=== PATIENT | male | born 1980 | race Caucasian/White ===

== ENCOUNTER 2017-07-05 18:58 | Emergency (ER) | payer MEDICARE, OTHER ==
[~2017-07-05] VITALS: Ht 188 cm; Wt 114.3 kg
[~2017-07-05 18:58] MED LIST: D3 DOTS2000 UNIT PO; DIVALPROEX SOD500 M1 PO; HYDROXYZINE HCL25 MG PO; LATUDA80 MG PO; LISINOPRIL10 MG PO; RANITIDINE HCL150 M1 PO; SERTRALINE HCL100 MG PO; SIMVASTATIN20 MG PO; THORAZINE25 MG PO
[2017-07-05] MEDS ORDERED: KETOROLAC TROMETHAMINE 30 MG/ML VIAL IV ONE (20:15)
[2017-07-05] MEDS ORDERED: MELOXICAM7.5 MG PO (20:22)
[2017-07-05] MEDS ORDERED: PEPCID20 MG PO (20:22)
[2017-07-05] MEDS ORDERED: ROBAXIN-750750 MG PO (20:23)
[2017-07-05 20:29] VITALS: BP 133/67
== END 2017-07-05 20:35 | disposition home or self-care (01) ==
LOC: FSED 18:58
DX: M54.2 Cervicalgia (principal); M54.5 Low back pain; S16.1XXA Strain of muscle, fascia and tendon at neck level, initial encounter; S46.812A Strain of other muscles, fascia and tendons at shoulder and upper arm level, left arm, initial encounter; V43.52XA Car driver injured in collision with other type car in traffic accident, initial encounter; Y92.89 Other specified places as the place of occurrence of the external cause; I10 Essential (primary) hypertension; E11.9 Type 2 diabetes mellitus without complications; G40.909 Epilepsy, unspecified, not intractable, without status epilepticus
CPT/HCPCS: 99283

== ENCOUNTER 2018-12-20 23:14 | Emergency (ER) | payer MEDICARE ==
[~2018-12-20] VITALS: Ht 188 cm; Wt 114.3 kg
[~2018-12-20 23:14] MED LIST changes: +MELOXICAM7.5 MG PO; +PEPCID20 MG PO; +ROBAXIN-750750 MG PO
--- OUTSIDE RECORDS SUMMARY | 2018-12-20 23:18 | XMS REPORT ---
Author Author Admin, [place] Organization [facility] Address [address] [place] [address] Phone Allergies, Adverse Reactions, Alerts Allergy Name Reaction Description Start Date Severity Status Provider No Known Allergies Moises Garcia Conditions or Problems Problem Name Problem Code Onset Date Status Entry Date Provider Comment Standard Description Annotate No Known Problems Moises Garcia Medication List Medication Instructions Start Date Stop Date Generic Name NDC Status Provider Patient Instruction No Drug Therapy Prescribed - none known did ask Moises Louis Garcia Vital Signs Date Name Value Unit Range Description blood pressure, diastolic 77 mm[Hg] BP hester blood pressure, systolic 134 mm[Hg] BP sys pulse rate E&M 78 /min Heart rate
--- OUTSIDE RECORDS SUMMARY | 2018-12-20 23:18 | XMS REPORT ---
Author [facility] Address Unknown Phone Unavailable Care Team Providers Care Set Up And Charger Name Role Phone Unavailable Unavailable Payers Payer Name Policy Type Policy Number Effective Date Expiration Date Problems This patient has no known problems. Allergies, Adverse Reactions, Alerts Allergy Name Allergy Type Status Severity Reaction(s) Onset Date Inactive Date Treating Clinician Comments olanzapine DA Active U 2017-08-29 00:00:00 Medications This patient has no known medications. Results Test Description Test Time Test Comments Text Results Atomic Results Result Comments GLUBED 2018-12-07 06:29:00 GLUBED (test code=GLUBED) 122 mg/dL 74-106 Performed by certified electron beam welding machine operator at [facility] [id number] 21:29:00* Test Item Value Reference Range Comments GLUBED (test code=GLUBED) 117 mg/dL 74-106 Performed by certified electron beam welding machine operator at [facility] [id number] 11:33:00* Test Item Value Reference Range Comments GLUBED (test code=GLUBED) 127 mg/dL 74-106 Performed by certified electron beam welding machine operator at [facility] [id number] 06:20:00* Test Item Value Reference Range Comments GLUBED (test code=GLUBED) 104 mg/dL 74-106 Performed by certified electron beam welding machine operator at [facility] - XR ELBOW 3 + V [id number] 17:08:00 FAX: Tessie Baker MD [phone] [place]: [address] St: REG Name: CALE HORTA [employer] : [birth year] Age/S: 38/M [address] [facility] Unit #: [id number] Loc: [place] [address] Phys: Tessie Baker MD Acct: [id number] Dis Date: Status: REG ER PHONE #: [phone] Exam Date: 12/04/2018 1656 FAX #: [phone] Reason: foreign body removal EXAMS: CPT CODE: [id number] XR ELBOW 3 + V RT [id number] HISTORY: Foreign body. COMPARISON: Same day. 2 small radiopaque foreign bodies along the medial soft tissues noted. Soft tissue swelling medially. Elbow joint is narrowed. Olecranon enthesophyte. IMPRESSION: Persistent to small radiopaque foreign bodies along the medial margin of the elbow joint. No joint fluid acute fracture or dislocation. at 1708 Reported and signed by: Familia Jo M.D. CC: Tessie Baker MD Technologist: Oracio GARCIA(R) Trnscrd Date/Time/By: ([id number]) : By: [email or web address] Orig Print D/T: S: 12/04/2018 (2384) PAGE 1 Signed Report - XR ELBOW 3 + V [id number] 15:56:00 FAX: Tessie Baker MD [phone] [place]: [address] St: REG Name: CALE HORTA [employer] : [birth year] Age/S: 38/M [address] Unit #: [id number] Loc: [place] [address] Phys: Tessie Baker MD Acct: [id number] Dis Date: Status: REG ER PHONE #: [phone] Exam Date: 12/04/2018 1535 FAX #: [phone] Reason: post FB removal EXAMS: CPT CODE: [id number] XR ELBOW 3 + V RT [id number] HISTORY: Foreign body removal. COMPARISON: Same day. 3 views of the right elbow: Residual small radiopaque foreign bodies are still present along the medial soft tissues but are decreased from previous examination and in superficial location. Soft tissue swelling. No acute fracture or disloc ation. No elbow joint fluid is noted. Olecranon enthesophyte. IMPRESSION: Residual radiopaque foreign bodies within the supe rficial medial soft tissues of the elbow joint level noted again but are decreased in number. No acute fracture or dislocation. Stephanie ctronically Signed by Skyler Jo on 12/04/2018 at 2034 Reported and signed by: Familia Jo M.D. CC: Tessie Turk MD Technologist: KEEGAN KEY RT(R) Trnscrd Date/Time/By: 12/04/2018 (9127) : By: [email or web address] Orig Print D/T: S: 12/04/2018 (0490) PAGE 1 Signed Report - XR ELBOW 3 + V [id number] 14:30:00 FAX: Tessie Baker MD [phone] [place]: B St: REG Name: Cindy ARCHULETACALE SIDDIQI [employer] : [birth year] Age/S: 38/M [address] Unit #: [id number] Loc: [place] [address] Phys: Tessie Baker MD Acct: [id number] Dis Date: Status: REG ER PHONE #: [phone] Exam Date: 12/04/2018 1405 FAX #: [phone] Reason: pain, trauma, possible fb EXAMS: CPT CODE: [id number] XR ELBOW 3 + V RT [id number] EXAM: Right elbow, 3 views; INFORMATION: Meth ingestion; elbow trauma, bodies? IMPRE SSION: 1. Imaged bones are intact; no evidence of fracture or dislocatio n. 2. Soft tissue injury along the medial aspect of the elbow with several subcutaneous, radiopaque radiopaque foreign bodies, measuring 4 to 7 mm in diameter; at 1430 Reported and signed by: Narciso Gomez M.D. CC: Tessie Baker MD Technolo gist: CALE JAZIEL RT(R) Trnscrd Date/Time/B y: 12/04/2018 (1430) : By: [email or web address] Orig Print D/T: S: 12/04/2018 (14 34) PAGE 1 Signed Report URINALYSIS [id number] 11:54:00* Test Item Value Reference Range Comments UA COLOR (test code=COLU) YELLOW YELLOW UA APPEARANCE (test code=APPU) Cloudy CLEAR UA GLUCOSE DIPSTICK (test code=DGLUU) NEGATIVE mg/dL NEGATIVE UA BILIRUBIN DIPSTICK (test code=BILU) NEGATIVE mg/dL NEGATIVE UA KETONE DIPSTICK (test code=KETU) 10 (1+) mg/dL NEGATIVE UA SPECIFIC GRAVITY (test code=SGU) 1.021 1.001-1.035 UA BLOOD DIPSTICK (test code=RONEY) Negative mg/dL NEGATIVE UA PH DIPSTICK (test code=THONG) 6.0 5.0-8.0 UA PROTEIN DIPSTICK (test code=PROU) 100 (2+) mg/dL NEGATIVE UA UROBILINIOGEN DIPSTICK (test code=URO) 3.0 (1+) mg/dL NEGATIVE UA NITRITE DIPSTICK (test code=RENETTA) NEGATIVE NEGATIVE UA LEUKOCYTE ESTERASE W REFLEX (test code=LEUUR) NEGATIVE Saulo/uL NEGATIVE UA WBC (test code=WBCU) 0-5 per HPF 0-5 UA RBC (test code=RBCU) 0-2 #/HPF 0-5 UA EPITHELIAL CELLS (test code=EPIU) FEW per HPF FEW UA BACTERIA (test code=BACU) MODERATE #/HPF NONE UA HYALINE CAST (test code=HYALU) >20 #/LPF 0-5 UA MUCUS (test code=MUCU) MANY #/LPF FEW Urine Source? Clean CatchDRUGS OF ABUSE SCREEN [id number] 11:54:00* Test Item Value Reference Range Comments URN COCAINE (test code=COCAURN) NEGATIVE <300 ng/mL URN CANNABINOIDS (test code=CANNABURN) NEGATIVE <50 ng/mL URN AMPHETAMINE (test code=AMPHETURN) POSITIVE <1000 ng/mL This test provides only a preliminary test result. A morespecific alternate chemical method must be used in order toobtain a confirmed analytical result. Gas chromatography/mass spectrometry (GC/MS) is thepreferred confirmatory method. Other chemical confirmationmethods are available. Clinical consideration and professional judgment should be applied to any drug of abusetest result, particularly when preliminary positive resultsare used.Unconfirmed screening results must not be used fornon-medical purposes (e.g., employment testing, legaltesting). URN BARBITURATE (test code=BARBITURN) NEGATIVE <200 ng/mL URN BENZODIAZEPINE (test code=BENZOURN) NEGATIVE <200 ng/mL URN OPIATES (test code=OPIATURN) NEGATIVE <300 ng/mL URN PHENCYCLIDINE (PCP) (test code=PHENCURN) NEGATIVE <25 ng/mL URN METHADONE (test code=METHAURN) NEGATIVE <300 ng/mL Urine Source? Clean CatchURINALYSIS [id number] 11:40:00* Test Item Value Reference Range Comments UA COLOR (test code=COLU) YELLOW YELLOW UA APPEARANCE (test code=APPU) Cloudy CLEAR UA GLUCOSE DIPSTICK (test code=DGLUU) NEGATIVE mg/dL NEGATIVE UA BILIRUBIN DIPSTICK (test code=BILU) NEGATIVE mg/dL NEGATIVE UA KETONE DIPSTICK (test code=KETU) 10 (1+) mg/dL NEGATIVE UA SPECIFIC GRAVITY (test code=SGU) 1.021 1.001-1.035 UA BLOOD DIPSTICK (test code=RONEY) Negative mg/dL NEGATIVE UA PH DIPSTICK (test code=THONG) 6.0 5.0-8.0 UA PROTEIN DIPSTICK (test code=PROU) 100 (2+) mg/dL NEGATIVE UA UROBILINIOGEN DIPSTICK (test code=URO) 3.0 (1+) mg/dL NEGATIVE UA NITRITE DIPSTICK (test code=RENETTA) NEGATIVE NEGATIVE UA LEUKOCYTE ESTERASE W REFLEX (test code=LEUUR) NEGATIVE Saulo/uL NEGATIVE UA WBC (test code=WBCU) 0-5 per HPF 0-5 UA RBC (test code=RBCU) 0-2 #/HPF 0-5 UA EPITHELIAL CELLS (test code=EPIU) FEW per HPF FEW UA BACTERIA (test code=BACU) MODERATE #/HPF NONE UA HYALINE CAST (test code=HYALU) >20 #/LPF 0-5 UA MUCUS (test code=MUCU) MANY #/LPF FEW Urine Source? Clean CatchDRUGS OF ABUSE SCREEN [id number] 11:40:00* Test Item Value Reference Range Comments URN COCAINE (test code=COCAURN) <300 ng/mL URN CANNABINOIDS (test code=CANNABURN) <50 ng/mL URN AMPHETAMINE (test code=AMPHETURN) <1000 ng/mL URN BARBITURATE (test code=BARBITURN) <200 ng/mL URN BENZODIAZEPINE (test code=BENZOURN) <200 ng/mL URN OPIATES (test code=OPIATURN) <300 ng/mL URN PHENCYCLIDINE (PCP) (test code=PHENCURN) <25 ng/mL URN METHADONE (test code=METHAURN) <300 ng/mL Urine Source? Clean CatchURINALYSIS [id number] 11:31:00* Test Item Value Reference Range Comments UA COLOR (test code=COLU) YELLOW YELLOW UA APPEARANCE (test code=APPU) Cloudy CLEAR UA GLUCOSE DIPSTICK (test code=DGLUU) NEGATIVE mg/dL NEGATIVE UA BILIRUBIN DIPSTICK (test code=BILU) NEGATIVE mg/dL NEGATIVE UA KETONE DIPSTICK (test code=KETU) 10 (1+) mg/dL NEGATIVE UA SPECIFIC GRAVITY (test code=SGU) 1.021 1.001-1.035 UA BLOOD DIPSTICK (test code=RONEY) Negative mg/dL NEGATIVE UA PH DIPSTICK (test code=THONG) 6.0 5.0-8.0 UA PROTEIN DIPSTICK (test code=PROU) 100 (2+) mg/dL NEGATIVE UA UROBILINIOGEN DIPSTICK (test code=URO) 3.0 (1+) mg/dL NEGATIVE UA NITRITE DIPSTICK (test code=RENETTA) NEGATIVE NEGATIVE UA LEUKOCYTE ESTERASE W REFLEX (test code=LEUUR) NEGATIVE Saulo/uL NEGATIVE UA WBC (test code=WBCU) per HPF 0-5 UA RBC (test code=RBCU) per HPF 0-5 UA EPITHELIAL CELLS (test code=EPIU) per HPF Few UA BACTERIA (test code=BACU) per HPF NONE Urine Source? Clean CatchDRUGS OF ABUSE SCREEN [id number] 11:31:00* Test Item Value Reference Range Comments URN COCAINE (test code=COCAURN) <300 ng/mL URN CANNABINOIDS (test code=CANNABURN) <50 ng/mL URN AMPHETAMINE (test code=AMPHETURN) <1000 ng/mL URN BARBITURATE (test code=BARBITURN) <200 ng/mL URN BENZODIAZEPINE (test code=BENZOURN) <200 ng/mL URN OPIATES (test code=OPIATURN) <300 ng/mL URN PHENCYCLIDINE (PCP) (test code=PHENCURN) <25 ng/mL URN METHADONE (test code=METHAURN) <300 ng/mL Urine Source? Clean CatchBASIC METABOLIC [id number] 11:22:00* Test Item Value Reference Range Comments SODIUM (test code=NA) 139 mmol/L 136-145 POTASSIUM (test code=K) 3.5 mmol/L 3.5-5.1 CHLORIDE (test code=CL) 107.0 mmol/L 98-107 CARBON DIOXIDE (test code=CO2) 20.0 mmol/L 21-32 ANION GAP (test code=GAP) 15.5 10-20 GLUCOSE (test code=GLU) 141 mg/dL 74-106 BLOOD UREA NITROGEN (test code=BUN) 7 mg/dL 7-18 GLOMERULAR FILTRATION RATE (test code=GFR) > 60 mL/min >=60 Estimated GFR by using Modified MDRD formula.Chronic kidney disease is defined as either kidney damageor GFR <60 mL/min/1.73 m2 for >3 months. CREATININE (test code=CREAT) 1.20 mg/dL 0.7-1.3 BUN/CREATININE RATIO (test code=BUN/CREA) 6.0 10-20 CALCIUM (test code=CA) 9.5 mg/dL 8.5-10.1 HEPATIC FUNCTION [id number] 11:22:00* Test Item Value Reference Range Comments TOTAL PROTEIN (test code=PROT) 8.0 gram/dL 6.4-8.2 ALBUMIN (test code=ALB) 3.8 g/dL 3.4-5.0 GLOBULIN (test code=GLOB) 4.2 gram/dL 2.7-4.2 ALBUMIN/GLOBULIN RATIO (test code=A/G) 0.9 0.75-1.50 BILIRUBIN TOTAL (test code=BILT) 0.80 mg/dL 0.0-1.0 BILIRUBIN DIRECT (test code=BILD) 0.22 mg/dL 0.0-0.20 SGOT/AST (test code=AST) 21 IUnit/L 15-37 SGPT/ALT (test code=ALT) 26 IUnit/L 12-78 ALKALINE PHOSPHATASE TOTAL (test code=ALKP) 74 IUnit/L 45-117 Note change in reference range due to change in reagent. CREATINE KINASE (CK)2018-12-04 11:22:00* Test Item Value Reference Range Comments CREATINE KINASE (CK) (test code=CK) 261 IUnit/L 26-208 [id number] 11:22:00* Test Item Value Reference Range Comments TROPONIN-I (test code=TROPI) <0.015 ng/mL 0-0.045 [id number] 11:22:00* Test Item Value Reference Range Comments ACETAMINOPHEN (test code=ACET) < 10 mcg/mL 10-30 A RANGE OF 10-30 mcg/mL IS A THERAPEUTIC RANGE. TOXIC CONCENTRATIONS: >150 mcg/mL AT 4 HOURS AFTER INGESTION >=50 mcg/mL AT 12 HOURS AFTER INGESTION [id number] 11:22:00* Test Item Value Reference Range Comments SALICYLATE (test code=MAINOR) 4.2 mg/dL 2.8-20.0 [id number] 11:22:00* Test Item Value Reference Range Comments ALCOHOL (test code=ALC) < 3 mg/dL 0.0-3.0 INTERPRETIVE DATA NOTE: POSITIVE SCREENING RESULTS SHOULD BE CONSIDERED PRESUMPTIVE.WHEN COLLECTED FOR MEDICAL PURPOSES ONLY. SPECIMEN WILL NOTBE COLLECTED BY CHAIN OF CUSTODY.IF A CONFIRMATION OF POSITIVE RESULTS IS DESIRED, ACONFIRMATION TEST MUST BE REQUESTED BY THE PHYSICIAN AT ANADDITIONAL CHARGE TO THE PATIENT. PROTHROMBIN [id number] 11:13:00* Test Item Value Reference Range Comments PROTHROMBIN TIME PATIENT (test code=PTP) 12.2 seconds 9.0-14.0 INTERNATIONAL NORMAL RATIO (test code=INR) 1.0 0.8-1.2 The therapeutic range for oral anticoagulant therapy formost indications is an international normalized ratio (INR)of between 2.0 and 3.0. The recommended therapeutic INRrange for various clinical situations is listed below: Clinical Situation INR range Pulmonary e mbolism treatment (2.0-3.0)Venous thrombosis treatmentVenous thrombosis prophylaxis (high risk surgery)Prevention of systemic embolism from: Acute myocardial infarction Valvular heart disease Atrial fibrillation Mechanical prosthetic heart valves (2.5-3.5) IS PATIENT ON ANTICOAGULANTS? NTHROMBOPLASTIN TIME [id number] 11:13:00* Test Item Value Reference Range Comments THROMBOPLASTIN TIME PARTIAL (test code=PTT) 31.6 seconds 25.0-36.5 IS PATIENT ON ANTICOAGULANTS? NBASIC METABOLIC [id number] 11:09:00* Test Item Value Reference Range Comments SODIUM (test code=NA) 139 mmol/L 136-145 POTASSIUM (test code=K) 3.5 mmol/L 3.5-5.1 CHLORIDE (test code=CL) 107.0 mmol/L 98-107 CARBON DIOXIDE (test code=CO2) mmol/L 21-32 ANION GAP (test code=GAP) 10-20 GLUCOSE (test code=GLU) mg/dL 74-106 BLOOD UREA NITROGEN (test code=BUN) mg/dL 7-18 GLOMERULAR FILTRATION RATE (test code=GFR) mL/min >=60 CREATININE (test code=CREAT) mg/dL 0.7-1.3 BUN/CREATININE RATIO (test code=BUN/CREA) 10-20 CALCIUM (test code=CA) mg/dL 8.5-10.1 HEPATIC FUNCTION [id number] 11:09:00* Test Item Value Reference Range Comments TOTAL PROTEIN (test code=PROT) gram/dL 6.4-8.2 ALBUMIN (test code=ALB) g/dL 3.4-5.0 GLOBULIN (test code=GLOB) gram/dL 2.7-4.2 ALBUMIN/GLOBULIN RATIO (test code=A/G) 0.75-1.50 BILIRUBIN TOTAL (test code=BILT) mg/dL 0.0-1.0 BILIRUBIN DIRECT (test code=BILD) mg/dL 0.0-0.20 SGOT/AST (test code=AST) IUnit/L 15-37 SGPT/ALT (test code=ALT) IUnit/L 12-78 ALKALINE PHOSPHATASE TOTAL (test code=ALKP) IUnit/L 45-117 CREATINE KINASE (CK)2018-12-04 11:09:00* Test Item Value Reference Range Comments CREATINE KINASE (CK) (test code=CK) IUnit/L 26-208 [id number] 11:09:00* Test Item Value Reference Range Comments TROPONIN-I (test code=TROPI) ng/mL 0-0.045 [id number] 11:09:00* Test Item Value Reference Range Comments ACETAMINOPHEN (test code=ACET) mcg/mL 10-30 [id number] 11:09:00* Test Item Value Reference Range Comments SALICYLATE (test code=MAINOR) mg/dL 2.8-20.0 [id number] 11:09:00* Test Item Value Reference Range Comments ALCOHOL (test code=ALC) mg/dL 0-3 CBC W/AUTO [id number] 10:57:00* Test Item Value Reference Range Comments WHITE BLOOD CELL (test code=WBC) K/mm3 4.5-12.5 RED BLOOD CELL (test code=RBC) mill/mm3 4.0-5.8 HEMOGLOBIN (test code=HGB) 15.7 gram/dL 13.0-17.5 HEMATOCRIT (test code=HCT) 44.7 % 42.0-52.0 MEAN CELL VOLUME (test code=MCV) fL 80-98 MEAN CELL HGB (test code=MCH) picogram 27.0-33.0 MEAN CELL HGB CONCETRATION (test code=MCHC) gram/dL 33.0-36.0 RED CELL DISTRIBUTION WIDTH (test code=RDW) % 11.6-16.2 RED CELL DISTRIBUTION WIDTH SD (test code=RDW-SD) fL 37.0-51.0 PLATELET COUNT (test code=PLT) K/mm3 150-450 MEAN PLATELET VOLUME (test code=MPV) fL 6.7-11.0 NEUTROPHIL % (test code=NT%) % 39.0-69.0 IMMATURE GRANULOCYTE % (test code=IG%) % 0.0-5.0 LYMPHOCYTE % (test code=LY%) % 25.0-55.0 MONOCYTE % (test code=MO%) % 0.0-10.0 EOSINOPHIL % (test code=EO%) % 0.0-5.0 BASOPHIL % (test code=BA%) % 0.0-1.0 NEUTROPHIL # (test code=NT#) K/mm3 1.8-7.7 LYMPHOCYTE # (test code=LY#) K/mm3 1.0-5.0 MONOCYTE # (test code=MO#) K/mm3 0-0.8 EOSINOPHIL # (test code=EO#) K/mm3 0.0-0.5 BASOPHIL # (test code=BA#) K/mm3 0.0-0.2 CBC W/AUTO [id number] 10:57:00* Test Item Value Reference Range Comments WHITE BLOOD CELL (test code=WBC) 9.9 K/mm3 4.5-12.5 RED BLOOD CELL (test code=RBC) 4.97 mill/mm3 4.0-5.8 HEMOGLOBIN (test code=HGB) 15.7 gram/dL 13.0-17.5 HEMATOCRIT (test code=HCT) 44.7 % 42.0-52.0 MEAN CELL VOLUME (test code=MCV) 89.9 fL 80-98 MEAN CELL HGB (test code=MCH) 31.6 picogram 27.0-33.0 MEAN CELL HGB CONCETRATION (test code=MCHC) 35.1 gram/dL 33.0-36.0 RED CELL DISTRIBUTION WIDTH (test code=RDW) 13.2 % 11.6-16.2 RED CELL DISTRIBUTION WIDTH SD (test code=RDW-SD) 43.1 fL 37.0-51.0 PLATELET COUNT (test code=PLT) 408 K/mm3 150-450 MEAN PLATELET VOLUME (test code=MPV) 9.6 fL 6.7-11.0 NEUTROPHIL % (test code=NT%) 57.9 % 39.0-69.0 IMMATURE GRANULOCYTE % (test code=IG%) 0.4 % 0.0-5.0 LYMPHOCYTE % (test code=LY%) 29.4 % 25.0-55.0 MONOCYTE % (test code=MO%) 10.9 % 0.0-10.0 EOSINOPHIL % (test code=EO%) 0.8 % 0.0-5.0 BASOPHIL % (test code=BA%) 0.6 % 0.0-1.0 NUCLEATED RBC % (test code=NRBC%) 0.0 % 0-0 NEUTROPHIL # (test code=NT#) 5.71 K/mm3 1.8-7.7 IMMATURE GRANULOCYTE # (test code=IG#) 0.04 x10 3/uL 0-0.03 LYMPHOCYTE # (test code=LY#) 2.90 K/mm3 1.0-5.0 MONOCYTE # (test code=MO#) 1.07 K/mm3 0-0.8 EOSINOPHIL # (test code=EO#) 0.08 K/mm3 0.0-0.5 BASOPHIL # (test code=BA#) 0.06 K/mm3 0.0-0.2 NUCLEATED RBC # (test code=NRBC#) 0.00 K/mm3 0.0-0.1 [id number] 16:33:00* Test Item Value Reference Range Comments GLUBED (test code=GLUBED) 149 mg/dL 74-106 Performed by certified electron beam welding machine operator at [facility] [id number] 16:33:00* Test Item Value Reference Range Comments GLUBED (test code=GLUBED) 201 mg/dL 74-106 Performed by certified electron beam welding machine operator at [facility] [id number] 16:33:00* Test Item Value Reference Range Comments GLUBED (test code=GLUBED) 178 mg/dL 74-106 Performed by certified electron beam welding machine operator at [facility] BASIC METABOLIC [id number] 06:21:00* Test Item Value Reference Range Comments SODIUM (test code=NA) 138 mmol/L 136-145 POTASSIUM (test code=K) 4.0 mmol/L 3.5-5.1 CHLORIDE (test code=CL) 107.0 mmol/L 98-107 CARBON DIOXIDE (test code=CO2) 21.0 mmol/L 21-32 ANION GAP (test code=GAP) 14.0 10-20 GLUCOSE (test code=GLU) 188 mg/dL 74-106 BLOOD UREA NITROGEN (test code=BUN) 18 mg/dL 7-18 GLOMERULAR FILTRATION RATE (test code=GFR) > 60 mL/min >=60 Estimated GFR by using Modified MDRD formula.Chronic kidney disease is defined as either kidney damageor GFR <60 mL/min/1.73 m2 for >3 months. CREATININE (test code=CREAT) 1.20 mg/dL 0.7-1.3 BUN/CREATININE RATIO (test code=BUN/CREA) 15.0 10-20 CALCIUM (test code=CA) 8.2 mg/dL 8.5-10.1 VALPROIC ACID (DEPAKENE)2018-06-09 06:21:00* Test Item Value Reference Range Comments VALPROIC ACID (DEPAKENE) (test code=VALP) 10.0 mcg/mL 50.0-100.0 BASIC METABOLIC [id number] 06:11:00* Test Item Value Reference Range Comments SODIUM (test code=NA) 138 mmol/L 136-145 POTASSIUM (test code=K) 4.0 mmol/L 3.5-5.1 CHLORIDE (test code=CL) 107.0 mmol/L 98-107 CARBON DIOXIDE (test code=CO2) mmol/L 21-32 ANION GAP (test code=GAP) 10-20 GLUCOSE (test code=GLU) mg/dL 74-106 BLOOD UREA NITROGEN (test code=BUN) mg/dL 7-18 GLOMERULAR FILTRATION RATE (test code=GFR) mL/min >=60 CREATININE (test code=CREAT) mg/dL 0.7-1.3 BUN/CREATININE RATIO (test code=BUN/CREA) 10-20 CALCIUM (test code=CA) mg/dL 8.5-10.1 [id number] 06:11:00* Test Item Value Reference Range Comments AMMONIA (test code=AMM) 43 umol/L 11-32 [id number] 22:13:00* Test Item Value Reference Range Comments GLUBED (test code=GLUBED) 165 mg/dL 74-106 Performed by certified electron beam welding machine operator at [facility] [id number] 17:56:00* Test Item Value Reference Range Comments GLUBED (test code=GLUBED) 177 mg/dL 74-106 Performed by certified electron beam welding machine operator at [facility] PROCALCITONIN (PCT)2018-06-08 15:53:00* Test Item Value Reference Range Comments PROCALCITONIN (PCT) (test code=PROCAL) 0.41 ng/ml Concentration Interpretation (ng/mL) <0.51 Sepsis is not likely. Local bacterial infection is possible. (LOW RISK for progression to Sepsis) 0.51 - 2.00 Sepsis is possible, but other conditions are known to elevate PCT as well. (MODERATE RISK for progression to Sepsis) > 2.00 Sepsis is likely, unless other causes are known. (HIGH RISK for progression to Severe Sepsis or Septic Shock) 10.00 High likelihood of Severe Sepsis or Septic or higher Shock. *Increased PCT levels may not always be related to systemic bacterial infection.*Low PCT levels do not automatically exclude the presence of bacterial infection.*All results should be interpreted taking into account the patients history. BASIC METABOLIC [id number] 15:25:00* Test Item Value Reference Range Comments SODIUM (test code=NA) 137 mmol/L 136-145 POTASSIUM (test code=K) 4.7 mmol/L 3.5-5.1 CHLORIDE (test code=CL) 108.0 mmol/L 98-107 CARBON DIOXIDE (test code=CO2) 19.0 mmol/L 21-32 ANION GAP (test code=GAP) 14.7 10-20 GLUCOSE (test code=GLU) 169 mg/dL 74-106 BLOOD UREA NITROGEN (test code=BUN) 17 mg/dL 7-18 GLOMERULAR FILTRATION RATE (test code=GFR) > 60 mL/min >=60 Estimated GFR by using Modified MDRD formula.Chronic kidney disease is defined as either kidney damageor GFR <60 mL/min/1.73 m2 for >3 months. CREATININE (test code=CREAT) 1.00 mg/dL 0.7-1.3 BUN/CREATININE RATIO (test code=BUN/CREA) 17.0 10-20 CALCIUM (test code=CA) 8.3 mg/dL 8.5-10.1 BASIC METABOLIC [id number] 15:20:00* Test Item Value Reference Range Comments SODIUM (test code=NA) 137 mmol/L 136-145 POTASSIUM (test code=K) 4.7 mmol/L 3.5-5.1 CHLORIDE (test code=CL) 108.0 mmol/L 98-107 CARBON DIOXIDE (test code=CO2) mmol/L 21-32 ANION GAP (test code=GAP) 10-20 GLUCOSE (test code=GLU) mg/dL 74-106 BLOOD UREA NITROGEN (test code=BUN) mg/dL 7-18 GLOMERULAR FILTRATION RATE (test code=GFR) mL/min >=60 CREATININE (test code=CREAT) mg/dL 0.7-1.3 BUN/CREATININE RATIO (test code=BUN/CREA) 10-20 CALCIUM (test code=CA) 8.3 mg/dL 8.5-10.1 [id number] 12:24:00* Test Item Value Reference Range Comments GLUBED (test code=GLUBED) 150 mg/dL 74-106 Performed by certified electron beam welding machine operator at [facility] [id number] 08:24:00* Test Item Value Reference Range Comments GLUBED (test code=GLUBED) 145 mg/dL 74-106 Performed by certified electron beam welding machine operator at [facility] [id number] 21:40:00* Test Item Value Reference Range Comments GLUBED (test code=GLUBED) 226 mg/dL 74-106 Performed by certified electron beam welding machine operator at [facility] [id number] 17:09:00* Test Item Value Reference Range Comments GLUBED (test code=GLUBED) 120 mg/dL 74-106 Performed by certified electron beam welding machine operator at [facility] [id number] 12:40:00* Test Item Value Reference Range Comments GLUBED (test code=GLUBED) 130 mg/dL 74-106 Performed by certified electron beam welding machine operator at [facility] [id number] 08:04:00* Test Item Value Reference Range Comments GLUBED (test code=GLUBED) 117 mg/dL 74-106 Performed by certified electron beam welding machine operator at [facility] CBC W/MANUAL [id number] 06:12:00* Test Item Value Reference Range Comments WHITE BLOOD CELL (test code=WBC) 17.9 K/mm3 4.5-12.5 RED BLOOD CELL (test code=RBC) 3.82 mill/mm3 4.0-5.8 HEMOGLOBIN (test code=HGB) 11.8 gram/dL 13.0-17.5 HEMATOCRIT (test code=HCT) 36.0 % 42.0-52.0 MEAN CELL VOLUME (test code=MCV) 94.2 fL 80-98 MEAN CELL HGB (test code=MCH) 30.9 picogram 27.0-33.0 MEAN CELL HGB CONCETRATION (test code=MCHC) 32.8 gram/dL 33.0-36.0 RED CELL DISTRIBUTION WIDTH (test code=RDW) 12.7 % 11.6-16.2 RED CELL DISTRIBUTION WIDTH SD (test code=RDW-SD) 43.6 fL 37.0-51.0 PLATELET COUNT (test code=PLT) 215 K/mm3 150-450 MEAN PLATELET VOLUME (test code=MPV) 11.4 fL 6.7-11.0 IMMATURE GRANULOCYTE % (test code=IG%) 1.6 % 0.0-5.0 NUCLEATED RBC % (test code=NRBC%) 0.0 % 0-0 NEUTROPHIL # (test code=NT#) 14.12 K/mm3 1.8-7.7 IMMATURE GRANULOCYTE # (test code=IG#) 0.28 x10 3/uL 0-0.03 LYMPHOCYTE # (test code=LY#) 1.46 K/mm3 1.0-5.0 MONOCYTE # (test code=MO#) 1.77 K/mm3 0-0.8 EOSINOPHIL # (test code=EO#) 0.19 K/mm3 0.0-0.5 BASOPHIL # (test code=BA#) 0.03 K/mm3 0.0-0.2 NUCLEATED RBC # (test code=NRBC#) 0.00 K/mm3 0.0-0.1 MANUAL DIFF REQUIRED (test code=MDIFF) YES STAIN ACCEPTABILITY (test code=STN ACCEPTABLE) STAIN ACCEPTABLE TOTAL CELLS COUNTED (test code=TCC) 115 #CELLS SEGMENTED NEUTROPHILS (test code=SEG) 76.5 % 39-69 BAND NEUTROPHIL (test code=BAND) 5.2 % 0-10 LYMPHOCYTE (test code=LYMPH) 12.2 % 25-55 REACTIVE LYMPH (test code=RELYMPH) 0 % MONOCYTE (test code=MON) 6.1 % 0-10 EOSINOPHIL (test code=EOS) 0 % 0.0-5.0 BASOPHIL (test code=BASO) 0 % 0-1.0 METAMYELOCYTE (test code=META) 0 % 0-0 MYELOCYTE (test code=MYELO) 0 % 0.0-0.0 PROMYELOCYTE (test code=PROM) 0 % 0-0 POLYCHROMASIA (test code=POLC) 1+ PLATELET ESTIMATE (test code=PLTEST) ADEQUATE PLATELET MORPHOLOGY (test code=PLTMORPH) NORMAL IMMATURE FORMS (test code=IMMAT) 0 % COMPREHENSIVE METABOLIC [id number] 05:49:00* Test Item Value Reference Range Comments SODIUM (test code=NA) 139 mmol/L 136-145 POTASSIUM (test code=K) 3.9 mmol/L 3.5-5.1 CHLORIDE (test code=CL) 110.0 mmol/L 98-107 CARBON DIOXIDE (test code=CO2) 22.0 mmol/L 21-32 ANION GAP (test code=GAP) 10.9 10-20 GLUCOSE (test code=GLU) 126 mg/dL 74-106 BLOOD UREA NITROGEN (test code=BUN) 12 mg/dL 7-18 GLOMERULAR FILTRATION RATE (test code=GFR) > 60 mL/min >=60 Estimated GFR by using Modified MDRD formula.Chronic kidney disease is defined as either kidney damageor GFR <60 mL/min/1.73 m2 for >3 months. CREATININE (test code=CREAT) 1.00 mg/dL 0.7-1.3 BUN/CREATININE RATIO (test code=BUN/CREA) 12.0 10-20 TOTAL PROTEIN (test code=PROT) 6.7 gram/dL 6.4-8.2 ALBUMIN (test code=ALB) 2.5 g/dL 3.4-5.0 GLOBULIN (test code=GLOB) 4.2 gram/dL 2.7-4.2 ALBUMIN/GLOBULIN RATIO (test code=A/G) 0.6 0.75-1.50 CALCIUM (test code=CA) 9.1 mg/dL 8.5-10.1 BILIRUBIN TOTAL (test code=BILT) 0.50 mg/dL 0.0-1.0 SGOT/AST (test code=AST) 24 IUnit/L 15-37 SGPT/ALT (test code=ALT) 26 IUnit/L 12-78 ALKALINE PHOSPHATASE TOTAL (test code=ALKP) 77 IUnit/L 45-117 Note change in reference range due to change in reagent. COMPREHENSIVE METABOLIC [id number] 05:31:00* Test Item Value Reference Range Comments SODIUM (test code=NA) 139 mmol/L 136-145 POTASSIUM (test code=K) 3.9 mmol/L 3.5-5.1 CHLORIDE (test code=CL) 110.0 mmol/L 98-107 CARBON DIOXIDE (test code=CO2) mmol/L 21-32 ANION GAP (test code=GAP) 10-20 GLUCOSE (test code=GLU) mg/dL 74-106 BLOOD UREA NITROGEN (test code=BUN) mg/dL 7-18 GLOMERULAR FILTRATION RATE (test code=GFR) mL/min >=60 CREATININE (test code=CREAT) mg/dL 0.7-1.3 BUN/CREATININE RATIO (test code=BUN/CREA) 10-20 TOTAL PROTEIN (test code=PROT) gram/dL 6.4-8.2 ALBUMIN (test code=ALB) g/dL 3.4-5.0 GLOBULIN (test code=GLOB) gram/dL 2.7-4.2 ALBUMIN/GLOBULIN RATIO (test code=A/G) 0.75-1.50 CALCIUM (test code=CA) mg/dL 8.5-10.1 BILIRUBIN TOTAL (test code=BILT) mg/dL 0.0-1.0 SGOT/AST (test code=AST) IUnit/L 15-37 SGPT/ALT (test code=ALT) IUnit/L 12-78 ALKALINE PHOSPHATASE TOTAL (test code=ALKP) IUnit/L 45-117 CBC W/MANUAL [id number] 05:23:00* Test Item Value Reference Range Comments WHITE BLOOD CELL (test code=WBC) 17.9 K/mm3 4.5-12.5 RED BLOOD CELL (test code=RBC) 3.82 mill/mm3 4.0-5.8 HEMOGLOBIN (test code=HGB) 11.8 gram/dL 13.0-17.5 HEMATOCRIT (test code=HCT) 36.0 % 42.0-52.0 MEAN CELL VOLUME (test code=MCV) 94.2 fL 80-98 MEAN CELL HGB (test code=MCH) 30.9 picogram 27.0-33.0 MEAN CELL HGB CONCETRATION (test code=MCHC) 32.8 gram/dL 33.0-36.0 RED CELL DISTRIBUTION WIDTH (test code=RDW) 12.7 % 11.6-16.2 RED CELL DISTRIBUTION WIDTH SD (test code=RDW-SD) 43.6 fL 37.0-51.0 PLATELET COUNT (test code=PLT) 215 K/mm3 150-450 MEAN PLATELET VOLUME (test code=MPV) 11.4 fL 6.7-11.0 IMMATURE GRANULOCYTE % (test code=IG%) 1.6 % 0.0-5.0 NUCLEATED RBC % (test code=NRBC%) 0.0 % 0-0 NEUTROPHIL # (test code=NT#) 14.12 K/mm3 1.8-7.7 IMMATURE GRANULOCYTE # (test code=IG#) 0.28 x10 3/uL 0-0.03 LYMPHOCYTE # (test code=LY#) 1.46 K/mm3 1.0-5.0 MONOCYTE # (test code=MO#) 1.77 K/mm3 0-0.8 EOSINOPHIL # (test code=EO#) 0.19 K/mm3 0.0-0.5 BASOPHIL # (test code=BA#) 0.03 K/mm3 0.0-0.2 NUCLEATED RBC # (test code=NRBC#) 0.00 K/mm3 0.0-0.1 MANUAL DIFF REQUIRED (test code=MDIFF) YES STAIN ACCEPTABILITY (test code=STN ACCEPTABLE) TOTAL CELLS COUNTED (test code=TCC) #CELLS SEGMENTED NEUTROPHILS (test code=SEG) % 39-69 LYMPHOCYTE (test code=LYMPH) % 25-55 MONOCYTE (test code=MON) % 0-10 EOSINOPHIL (test code=EOS) % 0.0-5.0 CABOT RINGS (test code=CAB) MORPHOLOGY COMMENT (test code=MOC) PLATELET ESTIMATE (test code=PLTEST) PLATELET MORPHOLOGY (test code=PLTMORPH) CBC W/MANUAL [id number] 05:23:00* Test Item Value Reference Range Comments WHITE BLOOD CELL (test code=WBC) 17.9 K/mm3 4.5-12.5 RED BLOOD CELL (test code=RBC) 3.82 mill/mm3 4.0-5.8 HEMOGLOBIN (test code=HGB) 11.8 gram/dL 13.0-17.5 HEMATOCRIT (test code=HCT) 36.0 % 42.0-52.0 MEAN CELL VOLUME (test code=MCV) 94.2 fL 80-98 MEAN CELL HGB (test code=MCH) 30.9 picogram 27.0-33.0 MEAN CELL HGB CONCETRATION (test code=MCHC) 32.8 gram/dL 33.0-36.0 RED CELL DISTRIBUTION WIDTH (test code=RDW) 12.7 % 11.6-16.2 RED CELL DISTRIBUTION WIDTH SD (test code=RDW-SD) 43.6 fL 37.0-51.0 PLATELET COUNT (test code=PLT) 215 K/mm3 150-450 MEAN PLATELET VOLUME (test code=MPV) 11.4 fL 6.7-11.0 IMMATURE GRANULOCYTE % (test code=IG%) 1.6 % 0.0-5.0 NUCLEATED RBC % (test code=NRBC%) 0.0 % 0-0 NEUTROPHIL # (test code=NT#) 14.12 K/mm3 1.8-7.7 IMMATURE GRANULOCYTE # (test code=IG#) 0.28 x10 3/uL 0-0.03 LYMPHOCYTE # (test code=LY#) 1.46 K/mm3 1.0-5.0 MONOCYTE # (test code=MO#) 1.77 K/mm3 0-0.8 EOSINOPHIL # (test code=EO#) 0.19 K/mm3 0.0-0.5 BASOPHIL # (test code=BA#) 0.03 K/mm3 0.0-0.2 NUCLEATED RBC # (test code=NRBC#) 0.00 K/mm3 0.0-0.1 MANUAL DIFF REQUIRED (test code=MDIFF) YES STAIN ACCEPTABILITY (test code=STN ACCEPTABLE) TOTAL CELLS COUNTED (test code=TCC) #CELLS SEGMENTED NEUTROPHILS (test code=SEG) % 39-69 LYMPHOCYTE (test code=LYMPH) % 25-55 MONOCYTE (test code=MON) % 0-10 EOSINOPHIL (test code=EOS) % 0.0-5.0 CABOT RINGS (test code=CAB) MORPHOLOGY COMMENT (test code=MOC) PLATELET ESTIMATE (test code=PLTEST) PLATELET MORPHOLOGY (test code=PLTMORPH) CBC W/MANUAL [id number] 05:23:00* Test Item Value Reference Range Comments WHITE BLOOD CELL (test code=WBC) 17.9 K/mm3 4.5-12.5 RED BLOOD CELL (test code=RBC) 3.82 mill/mm3 4.0-5.8 HEMOGLOBIN (test code=HGB) 11.8 gram/dL 13.0-17.5 HEMATOCRIT (test code=HCT) 36.0 % 42.0-52.0 MEAN CELL VOLUME (test code=MCV) 94.2 fL 80-98 MEAN CELL HGB (test code=MCH) 30.9 picogram 27.0-33.0 MEAN CELL HGB CONCETRATION (test code=MCHC) 32.8 gram/dL 33.0-36.0 RED CELL DISTRIBUTION WIDTH (test code=RDW) 12.7 % 11.6-16.2 RED CELL DISTRIBUTION WIDTH SD (test code=RDW-SD) 43.6 fL 37.0-51.0 PLATELET COUNT (test code=PLT) 215 K/mm3 150-450 MEAN PLATELET VOLUME (test code=MPV) 11.4 fL 6.7-11.0 IMMATURE GRANULOCYTE % (test code=IG%) 1.6 % 0.0-5.0 NUCLEATED RBC % (test code=NRBC%) 0.0 % 0-0 NEUTROPHIL # (test code=NT#) 14.12 K/mm3 1.8-7.7 IMMATURE GRANULOCYTE # (test code=IG#) 0.28 x10 3/uL 0-0.03 LYMPHOCYTE # (test code=LY#) 1.46 K/mm3 1.0-5.0 MONOCYTE # (test code=MO#) 1.77 K/mm3 0-0.8 EOSINOPHIL # (test code=EO#) 0.19 K/mm3 0.0-0.5 BASOPHIL # (test code=BA#) 0.03 K/mm3 0.0-0.2 NUCLEATED RBC # (test code=NRBC#) 0.00 K/mm3 0.0-0.1 MANUAL DIFF REQUIRED (test code=MDIFF) YES STAIN ACCEPTABILITY (test code=STN ACCEPTABLE) TOTAL CELLS COUNTED (test code=TCC) #CELLS SEGMENTED NEUTROPHILS (test code=SEG) % 39-69 LYMPHOCYTE (test code=LYMPH) % 25-55 MONOCYTE (test code=MON) % 0-10 EOSINOPHIL (test code=EOS) % 0.0-5.0 MORPHOLOGY COMMENT (test code=MOC) PLATELET ESTIMATE (test code=PLTEST) PLATELET MORPHOLOGY (test code=PLTMORPH) CBC W/MANUAL [id number] 05:23:00* Test Item Value Reference Range Comments WHITE BLOOD CELL (test code=WBC) 17.9 K/mm3 4.5-12.5 RED BLOOD CELL (test code=RBC) 3.82 mill/mm3 4.0-5.8 HEMOGLOBIN (test code=HGB) 11.8 gram/dL 13.0-17.5 HEMATOCRIT (test code=HCT) 36.0 % 42.0-52.0 MEAN CELL VOLUME (test code=MCV) 94.2 fL 80-98 MEAN CELL HGB (test code=MCH) 30.9 picogram 27.0-33.0 MEAN CELL HGB CONCETRATION (test code=MCHC) 32.8 gram/dL 33.0-36.0 RED CELL DISTRIBUTION WIDTH (test code=RDW) 12.7 % 11.6-16.2 RED CELL DISTRIBUTION WIDTH SD (test code=RDW-SD) 43.6 fL 37.0-51.0 PLATELET COUNT (test code=PLT) 215 K/mm3 150-450 MEAN PLATELET VOLUME (test code=MPV) 11.4 fL 6.7-11.0 IMMATURE GRANULOCYTE % (test code=IG%) 1.6 % 0.0-5.0 NUCLEATED RBC % (test code=NRBC%) 0.0 % 0-0 NEUTROPHIL # (test code=NT#) 14.12 K/mm3 1.8-7.7 IMMATURE GRANULOCYTE # (test code=IG#) 0.28 x10 3/uL 0-0.03 LYMPHOCYTE # (test code=LY#) 1.46 K/mm3 1.0-5.0 MONOCYTE # (test code=MO#) 1.77 K/mm3 0-0.8 EOSINOPHIL # (test code=EO#) 0.19 K/mm3 0.0-0.5 BASOPHIL # (test code=BA#) 0.03 K/mm3 0.0-0.2 NUCLEATED RBC # (test code=NRBC#) 0.00 K/mm3 0.0-0.1 MANUAL DIFF REQUIRED (test code=MDIFF) YES STAIN ACCEPTABILITY (test code=STN ACCEPTABLE) TOTAL CELLS COUNTED (test code=TCC) #CELLS SEGMENTED NEUTROPHILS (test code=SEG) % 39-69 LYMPHOCYTE (test code=LYMPH) % 25-55 MONOCYTE (test code=MON) % 0-10 MORPHOLOGY COMMENT (test code=MOC) PLATELET ESTIMATE (test code=PLTEST) PLATELET MORPHOLOGY (test code=PLTMORPH) CBC W/MANUAL [id number] 05:23:00* Test Item Value Reference Range Comments WHITE BLOOD CELL (test code=WBC) 17.9 K/mm3 4.5-12.5 RED BLOOD CELL (test code=RBC) 3.82 mill/mm3 4.0-5.8 HEMOGLOBIN (test code=HGB) 11.8 gram/dL 13.0-17.5 HEMATOCRIT (test code=HCT) 36.0 % 42.0-52.0 MEAN CELL VOLUME (test code=MCV) 94.2 fL 80-98 MEAN CELL HGB (test code=MCH) 30.9 picogram 27.0-33.0 MEAN CELL HGB CONCETRATION (test code=MCHC) 32.8 gram/dL 33.0-36.0 RED CELL DISTRIBUTION WIDTH (test code=RDW) 12.7 % 11.6-16.2 RED CELL DISTRIBUTION WIDTH SD (test code=RDW-SD) 43.6 fL 37.0-51.0 PLATELET COUNT (test code=PLT) 215 K/mm3 150-450 MEAN PLATELET VOLUME (test code=MPV) 11.4 fL 6.7-11.0 IMMATURE GRANULOCYTE % (test code=IG%) 1.6 % 0.0-5.0 NUCLEATED RBC % (test code=NRBC%) 0.0 % 0-0 NEUTROPHIL # (test code=NT#) 14.12 K/mm3 1.8-7.7 IMMATURE GRANULOCYTE # (test code=IG#) 0.28 x10 3/uL 0-0.03 LYMPHOCYTE # (test code=LY#) 1.46 K/mm3 1.0-5.0 MONOCYTE # (test code=MO#) 1.77 K/mm3 0-0.8 EOSINOPHIL # (test code=EO#) 0.19 K/mm3 0.0-0.5 BASOPHIL # (test code=BA#) 0.03 K/mm3 0.0-0.2 NUCLEATED RBC # (test code=NRBC#) 0.00 K/mm3 0.0-0.1 MANUAL DIFF REQUIRED (test code=MDIFF) YES STAIN ACCEPTABILITY (test code=STN ACCEPTABLE) TOTAL CELLS COUNTED (test code=TCC) #CELLS SEGMENTED NEUTROPHILS (test code=SEG) % 39-69 LYMPHOCYTE (test code=LYMPH) % 25-55 MONOCYTE (test code=MON) % 0-10 EOSINOPHIL (test code=EOS) % 0.0-5.0 CABOT RINGS (test code=CAB) MORPHOLOGY COMMENT (test code=MOC) PLATELET ESTIMATE (test code=PLTEST) PLATELET MORPHOLOGY (test code=PLTMORPH) [id number] 21:10:00* Test Item Value Reference Range Comments GLUBED (test code=GLUBED) 127 mg/dL 74-106 Performed by certified electron beam welding machine operator at [facility] [id number] 17:05:00* Test Item Value Reference Range Comments GLUBED (test code=GLUBED) 150 mg/dL 74-106 Performed by certified electron beam welding machine operator at [facility] [id number] 11:12:00* Test Item Value Reference Range Comments GLUBED (test code=GLUBED) 112 mg/dL 74-106 Performed by certified electron beam welding machine operator at [facility] [id number] 07:33:00* Test Item Value Reference Range Comments GLUBED (test code=GLUBED) 71 mg/dL 74-106 Performed by certified electron beam welding machine operator at [facility] CBC W/MANUAL [id number] 06:55:00* Test Item Value Reference Range Comments WHITE BLOOD CELL (test code=WBC) 17.3 K/mm3 4.5-12.5 RED BLOOD CELL (test code=RBC) 3.69 mill/mm3 4.0-5.8 HEMOGLOBIN (test code=HGB) 11.1 gram/dL 13.0-17.5 RESULT VERIFIED BY REPEAT ANALYSIS HEMATOCRIT (test code=HCT) 36.1 % 42.0-52.0 MEAN CELL VOLUME (test code=MCV) 97.8 fL 80-98 MEAN CELL HGB (test code=MCH) 30.1 picogram 27.0-33.0 MEAN CELL HGB CONCETRATION (test code=MCHC) 30.7 gram/dL 33.0-36.0 RED CELL DISTRIBUTION WIDTH (test code=RDW) 12.7 % 11.6-16.2 RED CELL DISTRIBUTION WIDTH SD (test code=RDW-SD) 45.5 fL 37.0-51.0 PLATELET COUNT (test code=PLT) 211 K/mm3 150-450 RESULT VERIFIED BY REPEAT ANALYSIS MEAN PLATELET VOLUME (test code=MPV) 11.3 fL 6.7-11.0 IMMATURE GRANULOCYTE % (test code=IG%) 1.0 % 0.0-5.0 NUCLEATED RBC % (test code=NRBC%) 0.0 % 0-0 NEUTROPHIL # (test code=NT#) 13.74 K/mm3 1.8-7.7 IMMATURE GRANULOCYTE # (test code=IG#) 0.17 x10 3/uL 0-0.03 LYMPHOCYTE # (test code=LY#) 1.47 K/mm3 1.0-5.0 MONOCYTE # (test code=MO#) 1.70 K/mm3 0-0.8 EOSINOPHIL # (test code=EO#) 0.17 K/mm3 0.0-0.5 BASOPHIL # (test code=BA#) 0.04 K/mm3 0.0-0.2 NUCLEATED RBC # (test code=NRBC#) 0.00 K/mm3 0.0-0.1 MANUAL DIFF REQUIRED (test code=MDIFF) YES STAIN ACCEPTABILITY (test code=STN ACCEPTABLE) STAIN ACCEPTABLE TOTAL CELLS COUNTED (test code=TCC) 115 #CELLS SEGMENTED NEUTROPHILS (test code=SEG) 70.4 % 39-69 BAND NEUTROPHIL (test code=BAND) 8.7 % 0-10 LYMPHOCYTE (test code=LYMPH) 9.6 % 25-55 REACTIVE LYMPH (test code=RELYMPH) 0 % MONOCYTE (test code=MON) 5.2 % 0-10 EOSINOPHIL (test code=EOS) 0 % 0.0-5.0 BASOPHIL (test code=BASO) 1.8 % 0-1.0 METAMYELOCYTE (test code=META) 1.7 % 0-0 MYELOCYTE (test code=MYELO) 0 % 0.0-0.0 PROMYELOCYTE (test code=PROM) 0.9 % 0-0 PLATELET ESTIMATE (test code=PLTEST) ADEQUATE PLATELET MORPHOLOGY (test code=PLTMORPH) NORMAL IMMATURE FORMS (test code=IMMAT) 1.7 % COMPREHENSIVE METABOLIC [id number] 06:37:00* Test Item Value Reference Range Comments SODIUM (test code=NA) 138 mmol/L 136-145 POTASSIUM (test code=K) 4.3 mmol/L 3.5-5.1 CHLORIDE (test code=CL) 107.0 mmol/L 98-107 CARBON DIOXIDE (test code=CO2) 29.0 mmol/L 21-32 ANION GAP (test code=GAP) 6.3 10-20 GLUCOSE (test code=GLU) 80 mg/dL 74-106 BLOOD UREA NITROGEN (test code=BUN) 9 mg/dL 7-18 GLOMERULAR FILTRATION RATE (test code=GFR) > 60 mL/min >=60 Estimated GFR by using Modified MDRD formula.Chronic kidney disease is defined as either kidney damageor GFR <60 mL/min/1.73 m2 for >3 months. CREATININE (test code=CREAT) 0.90 mg/dL 0.7-1.3 BUN/CREATININE RATIO (test code=BUN/CREA) 10.0 10-20 TOTAL PROTEIN (test code=PROT) 5.6 gram/dL 6.4-8.2 ALBUMIN (test code=ALB) 2.4 g/dL 3.4-5.0 GLOBULIN (test code=GLOB) 3.2 gram/dL 2.7-4.2 ALBUMIN/GLOBULIN RATIO (test code=A/G) 0.8 0.75-1.50 CALCIUM (test code=CA) 8.0 mg/dL 8.5-10.1 BILIRUBIN TOTAL (test code=BILT) 0.30 mg/dL 0.0-1.0 SGOT/AST (test code=AST) 23 IUnit/L 15-37 SGPT/ALT (test code=ALT) 32 IUnit/L 12-78 ALKALINE PHOSPHATASE TOTAL (test code=ALKP) 52 IUnit/L 45-117 Note change in reference range due to change in reagent. [id number] 06:37:00* Test Item Value Reference Range Comments MAGNESIUM (test code=MAG) 2.1 mg/dL 1.8-2.4 COMPREHENSIVE METABOLIC [id number] 06:28:00* Test Item Value Reference Range Comments SODIUM (test code=NA) 138 mmol/L 136-145 POTASSIUM (test code=K) 4.3 mmol/L 3.5-5.1 CHLORIDE (test code=CL) 107.0 mmol/L 98-107 CARBON DIOXIDE (test code=CO2) mmol/L 21-32 ANION GAP (test code=GAP) 10-20 GLUCOSE (test code=GLU) mg/dL 74-106 BLOOD UREA NITROGEN (test code=BUN) mg/dL 7-18 GLOMERULAR FILTRATION RATE (test code=GFR) mL/min >=60 CREATININE (test code=CREAT) mg/dL 0.7-1.3 BUN/CREATININE RATIO (test code=BUN/CREA) 10-20 TOTAL PROTEIN (test code=PROT) gram/dL 6.4-8.2 ALBUMIN (test code=ALB) g/dL 3.4-5.0 GLOBULIN (test code=GLOB) gram/dL 2.7-4.2 ALBUMIN/GLOBULIN RATIO (test code=A/G) 0.75-1.50 CALCIUM (test code=CA) mg/dL 8.5-10.1 BILIRUBIN TOTAL (test code=BILT) mg/dL 0.0-1.0 SGOT/AST (test code=AST) IUnit/L 15-37 SGPT/ALT (test code=ALT) IUnit/L 12-78 ALKALINE PHOSPHATASE TOTAL (test code=ALKP) IUnit/L 45-117 [id number] 06:28:00* Test Item Value Reference Range Comments MAGNESIUM (test code=MAG) mg/dL 1.8-2.4 CBC W/MANUAL [id number] 06:26:00* Test Item Value Reference Range Comments WHITE BLOOD CELL (test code=WBC) 17.3 K/mm3 4.5-12.5 RED BLOOD CELL (test code=RBC) 3.69 mill/mm3 4.0-5.8 HEMOGLOBIN (test code=HGB) 11.1 gram/dL 13.0-17.5 RESULT VERIFIED BY REPEAT ANALYSIS HEMATOCRIT (test code=HCT) 36.1 % 42.0-52.0 MEAN CELL VOLUME (test code=MCV) 97.8 fL 80-98 MEAN CELL HGB (test code=MCH) 30.1 picogram 27.0-33.0 MEAN CELL HGB CONCETRATION (test code=MCHC) 30.7 gram/dL 33.0-36.0 RED CELL DISTRIBUTION WIDTH (test code=RDW) 12.7 % 11.6-16.2 RED CELL DISTRIBUTION WIDTH SD (test code=RDW-SD) 45.5 fL 37.0-51.0 PLATELET COUNT (test code=PLT) 211 K/mm3 150-450 RESULT VERIFIED BY REPEAT ANALYSIS MEAN PLATELET VOLUME (test code=MPV) 11.3 fL 6.7-11.0 IMMATURE GRANULOCYTE % (test code=IG%) 1.0 % 0.0-5.0 NUCLEATED RBC % (test code=NRBC%) 0.0 % 0-0 NEUTROPHIL # (test code=NT#) 13.74 K/mm3 1.8-7.7 IMMATURE GRANULOCYTE # (test code=IG#) 0.17 x10 3/uL 0-0.03 LYMPHOCYTE # (test code=LY#) 1.47 K/mm3 1.0-5.0 MONOCYTE # (test code=MO#) 1.70 K/mm3 0-0.8 EOSINOPHIL # (test code=EO#) 0.17 K/mm3 0.0-0.5 BASOPHIL # (test code=BA#) 0.04 K/mm3 0.0-0.2 NUCLEATED RBC # (test code=NRBC#) 0.00 K/mm3 0.0-0.1 MANUAL DIFF REQUIRED (test code=MDIFF) YES STAIN ACCEPTABILITY (test code=STN ACCEPTABLE) TOTAL CELLS COUNTED (test code=TCC) #CELLS SEGMENTED NEUTROPHILS (test code=SEG) % 39-69 LYMPHOCYTE (test code=LYMPH) % 25-55 MONOCYTE (test code=MON) % 0-10 EOSINOPHIL (test code=EOS) % 0.0-5.0 CABOT RINGS (test code=CAB) MORPHOLOGY COMMENT (test code=MOC) PLATELET ESTIMATE (test code=PLTEST) PLATELET MORPHOLOGY (test code=PLTMORPH) CBC W/MANUAL [id number] 06:26:00* Test Item Value Reference Range Comments WHITE BLOOD CELL (test code=WBC) 17.3 K/mm3 4.5-12.5 RED BLOOD CELL (test code=RBC) 3.69 mill/mm3 4.0-5.8 HEMOGLOBIN (test code=HGB) 11.1 gram/dL 13.0-17.5 RESULT VERIFIED BY REPEAT ANALYSIS HEMATOCRIT (test code=HCT) 36.1 % 42.0-52.0 MEAN CELL VOLUME (test code=MCV) 97.8 fL 80-98 MEAN CELL HGB (test code=MCH) 30.1 picogram 27.0-33.0 MEAN CELL HGB CONCETRATION (test code=MCHC) 30.7 gram/dL 33.0-36.0 RED CELL DISTRIBUTION WIDTH (test code=RDW) 12.7 % 11.6-16.2 RED CELL DISTRIBUTION WIDTH SD (test code=RDW-SD) 45.5 fL 37.0-51.0 PLATELET COUNT (test code=PLT) 211 K/mm3 150-450 RESULT VERIFIED BY REPEAT ANALYSIS MEAN PLATELET VOLUME (test code=MPV) 11.3 fL 6.7-11.0 IMMATURE GRANULOCYTE % (test code=IG%) 1.0 % 0.0-5.0 NUCLEATED RBC % (test code=NRBC%) 0.0 % 0-0 NEUTROPHIL # (test code=NT#) 13.74 K/mm3 1.8-7.7 IMMATURE GRANULOCYTE # (test code=IG#) 0.17 x10 3/uL 0-0.03 LYMPHOCYTE # (test code=LY#) 1.47 K/mm3 1.0-5.0 MONOCYTE # (test code=MO#) 1.70 K/mm3 0-0.8 EOSINOPHIL # (test code=EO#) 0.17 K/mm3 0.0-0.5 BASOPHIL # (test code=BA#) 0.04 K/mm3 0.0-0.2 NUCLEATED RBC # (test code=NRBC#) 0.00 K/mm3 0.0-0.1 MANUAL DIFF REQUIRED (test code=MDIFF) YES STAIN ACCEPTABILITY (test code=STN ACCEPTABLE) TOTAL CELLS COUNTED (test code=TCC) #CELLS SEGMENTED NEUTROPHILS (test code=SEG) % 39-69 LYMPHOCYTE (test code=LYMPH) % 25-55 MONOCYTE (test code=MON) % 0-10 EOSINOPHIL (test code=EOS) % 0.0-5.0 CABOT RINGS (test code=CAB) MORPHOLOGY COMMENT (test code=MOC) PLATELET ESTIMATE (test code=PLTEST) PLATELET MORPHOLOGY (test code=PLTMORPH) CBC W/MANUAL [id number] 06:26:00* Test Item Value Reference Range Comments WHITE BLOOD CELL (test code=WBC) 17.3 K/mm3 4.5-12.5 RED BLOOD CELL (test code=RBC) 3.69 mill/mm3 4.0-5.8 HEMOGLOBIN (test code=HGB) 11.1 gram/dL 13.0-17.5 RESULT VERIFIED BY REPEAT ANALYSIS HEMATOCRIT (test code=HCT) 36.1 % 42.0-52.0 MEAN CELL VOLUME (test code=MCV) 97.8 fL 80-98 MEAN CELL HGB (test code=MCH) 30.1 picogram 27.0-33.0 MEAN CELL HGB CONCETRATION (test code=MCHC) 30.7 gram/dL 33.0-36.0 RED CELL DISTRIBUTION WIDTH (test code=RDW) 12.7 % 11.6-16.2 RED CELL DISTRIBUTION WIDTH SD (test code=RDW-SD) 45.5 fL 37.0-51.0 PLATELET COUNT (test code=PLT) 211 K/mm3 150-450 RESULT VERIFIED BY REPEAT ANALYSIS MEAN PLATELET VOLUME (test code=MPV) 11.3 fL 6.7-11.0 IMMATURE GRANULOCYTE % (test code=IG%) 1.0 % 0.0-5.0 NUCLEATED RBC % (test code=NRBC%) 0.0 % 0-0 NEUTROPHIL # (test code=NT#) 13.74 K/mm3 1.8-7.7 IMMATURE GRANULOCYTE # (test code=IG#) 0.17 x10 3/uL 0-0.03 LYMPHOCYTE # (test code=LY#) 1.47 K/mm3 1.0-5.0 MONOCYTE # (test code=MO#) 1.70 K/mm3 0-0.8 EOSINOPHIL # (test code=EO#) 0.17 K/mm3 0.0-0.5 BASOPHIL # (test code=BA#) 0.04 K/mm3 0.0-0.2 NUCLEATED RBC # (test code=NRBC#) 0.00 K/mm3 0.0-0.1 MANUAL DIFF REQUIRED (test code=MDIFF) YES STAIN ACCEPTABILITY (test code=STN ACCEPTABLE) TOTAL CELLS COUNTED (test code=TCC) #CELLS SEGMENTED NEUTROPHILS (test code=SEG) % 39-69 LYMPHOCYTE (test code=LYMPH) % 25-55 MONOCYTE (test code=MON) % 0-10 EOSINOPHIL (test code=EOS) % 0.0-5.0 MORPHOLOGY COMMENT (test code=MOC) PLATELET ESTIMATE (test code=PLTEST) PLATELET MORPHOLOGY (test code=PLTMORPH) CBC W/MANUAL [id number] 06:26:00* Test Item Value Reference Range Comments WHITE BLOOD CELL (test code=WBC) 17.3 K/mm3 4.5-12.5 RED BLOOD CELL (test code=RBC) 3.69 mill/mm3 4.0-5.8 HEMOGLOBIN (test code=HGB) 11.1 gram/dL 13.0-17.5 RESULT VERIFIED BY REPEAT ANALYSIS HEMATOCRIT (test code=HCT) 36.1 % 42.0-52.0 MEAN CELL VOLUME (test code=MCV) 97.8 fL 80-98 MEAN CELL HGB (test code=MCH) 30.1 picogram 27.0-33.0 MEAN CELL HGB CONCETRATION (test code=MCHC) 30.7 gram/dL 33.0-36.0 RED CELL DISTRIBUTION WIDTH (test code=RDW) 12.7 % 11.6-16.2 RED CELL DISTRIBUTION WIDTH SD (test code=RDW-SD) 45.5 fL 37.0-51.0 PLATELET COUNT (test code=PLT) 211 K/mm3 150-450 RESULT VERIFIED BY REPEAT ANALYSIS MEAN PLATELET VOLUME (test code=MPV) 11.3 fL 6.7-11.0 IMMATURE GRANULOCYTE % (test code=IG%) 1.0 % 0.0-5.0 NUCLEATED RBC % (test code=NRBC%) 0.0 % 0-0 NEUTROPHIL # (test code=NT#) 13.74 K/mm3 1.8-7.7 IMMATURE GRANULOCYTE # (test code=IG#) 0.17 x10 3/uL 0-0.03 LYMPHOCYTE # (test code=LY#) 1.47 K/mm3 1.0-5.0 MONOCYTE # (test code=MO#) 1.70 K/mm3 0-0.8 EOSINOPHIL # (test code=EO#) 0.17 K/mm3 0.0-0.5 BASOPHIL # (test code=BA#) 0.04 K/mm3 0.0-0.2 NUCLEATED RBC # (test code=NRBC#) 0.00 K/mm3 0.0-0.1 MANUAL DIFF REQUIRED (test code=MDIFF) YES STAIN ACCEPTABILITY (test code=STN ACCEPTABLE) TOTAL CELLS COUNTED (test code=TCC) #CELLS SEGMENTED NEUTROPHILS (test code=SEG) % 39-69 LYMPHOCYTE (test code=LYMPH) % 25-55 MONOCYTE (test code=MON) % 0-10 MORPHOLOGY COMMENT (test code=MOC) PLATELET ESTIMATE (test code=PLTEST) PLATELET MORPHOLOGY (test code=PLTMORPH) CBC W/MANUAL [id number] 06:26:00* Test Item Value Reference Range Comments WHITE BLOOD CELL (test code=WBC) 17.3 K/mm3 4.5-12.5 RED BLOOD CELL (test code=RBC) 3.69 mill/mm3 4.0-5.8 HEMOGLOBIN (test code=HGB) 11.1 gram/dL 13.0-17.5 RESULT VERIFIED BY REPEAT ANALYSIS HEMATOCRIT (test code=HCT) 36.1 % 42.0-52.0 MEAN CELL VOLUME (test code=MCV) 97.8 fL 80-98 MEAN CELL HGB (test code=MCH) 30.1 picogram 27.0-33.0 MEAN CELL HGB CONCETRATION (test code=MCHC) 30.7 gram/dL 33.0-36.0 RED CELL DISTRIBUTION WIDTH (test code=RDW) 12.7 % 11.6-16.2 RED CELL DISTRIBUTION WIDTH SD (test code=RDW-SD) 45.5 fL 37.0-51.0 PLATELET COUNT (test code=PLT) 211 K/mm3 150-450 RESULT VERIFIED BY REPEAT ANALYSIS MEAN PLATELET VOLUME (test code=MPV) 11.3 fL 6.7-11.0 IMMATURE GRANULOCYTE % (test code=IG%) 1.0 % 0.0-5.0 NUCLEATED RBC % (test code=NRBC%) 0.0 % 0-0 NEUTROPHIL # (test code=NT#) 13.74 K/mm3 1.8-7.7 IMMATURE GRANULOCYTE # (test code=IG#) 0.17 x10 3/uL 0-0.03 LYMPHOCYTE # (test code=LY#) 1.47 K/mm3 1.0-5.0 MONOCYTE # (test code=MO#) 1.70 K/mm3 0-0.8 EOSINOPHIL # (test code=EO#) 0.17 K/mm3 0.0-0.5 BASOPHIL # (test code=BA#) 0.04 K/mm3 0.0-0.2 NUCLEATED RBC # (test code=NRBC#) 0.00 K/mm3 0.0-0.1 MANUAL DIFF REQUIRED (test code=MDIFF) YES STAIN ACCEPTABILITY (test code=STN ACCEPTABLE) TOTAL CELLS COUNTED (test code=TCC) #CELLS SEGMENTED NEUTROPHILS (test code=SEG) % 39-69 LYMPHOCYTE (test code=LYMPH) % 25-55 MONOCYTE (test code=MON) % 0-10 EOSINOPHIL (test code=EOS) % 0.0-5.0 CABOT RINGS (test code=CAB) MORPHOLOGY COMMENT (test code=MOC) PLATELET ESTIMATE (test code=PLTEST) PLATELET MORPHOLOGY (test code=PLTMORPH) [id number] 21:03:00* Test Item Value Reference Range Comments GLUBED (test code=GLUBED) 140 mg/dL 74-106 Performed by certified electron beam welding machine operator at [facility] [id number] 21:03:00* Test Item Value Reference Range Comments GLUBED (test code=GLUBED) 128 mg/dL 74-106 Performed by certified electron beam welding machine operator at [facility] [id number] 21:03:00* Test Item Value Reference Range Comments GLUBED (test code=GLUBED) 113 mg/dL 74-106 Performed by certified electron beam welding machine operator at [facility] [id number] 21:03:00* Test Item Value Reference Range Comments GLUBED (test code=GLUBED) 111 mg/dL 74-106 Performed by certified electron beam welding machine operator at [facility] [id number] 21:03:00* Test Item Value Reference Range Comments GLUBED (test code=GLUBED) 106 mg/dL 74-106 Performed by certified electron beam welding machine operator at [facility] [id number] 21:03:00* Test Item Value Reference Range Comments GLUBED (test code=GLUBED) 79 mg/dL 74-106 Performed by certified electron beam welding machine operator at [facility] [id number] 21:03:00* Test Item Value Reference Range Comments GLUBED (test code=GLUBED) 72 mg/dL 74-106 Performed by certified electron beam welding machine operator at [facility] [id number] 21:03:00* Test Item Value Reference Range Comments GLUBED (test code=GLUBED) 95 mg/dL 74-106 Performed by certified electron beam welding machine operator at [facility] [id number] 21:03:00* Test Item Value Reference Range Comments GLUBED (test code=GLUBED) 116 mg/dL 74-106 Performed by certified electron beam welding machine operator at [facility] [id number] 21:03:00* Test Item Value Reference Range Comments GLUBED (test code=GLUBED) 55 mg/dL 74-106 Performed by certified electron beam welding machine operator at [facility] [id number] 20:54:00* Test Item Value Reference Range Comments GLUBED (test code=GLUBED) 165 mg/dL 74-106 Performed by certified electron beam welding machine operator at [facility] [id number] 11:44:00* Test Item Value Reference Range Comments CORTISOL (test code=CORTR) 26.25 mcg/dL 3.44-22.5 Please Note Change in REFERENCE RANGE [id number] 07:11:00* Test Item Value Reference Range Comments GLUBED (test code=GLUBED) 82 mg/dL 74-106 Performed by certified electron beam welding machine operator at [facility] [id number] 07:11:00* Test Item Value Reference Range Comments GLUBED (test code=GLUBED) 51 mg/dL 74-106 Performed by certified electron beam welding machine operator at [facility] ARTERIAL BLOOD [id number] 05:00:00* Test Item Value Reference Range Comments ARTERIAL BLOOD GAS PH (test code=PHA) 7.26 7.35-7.45 ARTERIAL BLOOD GAS PCO2 (test code=PCO2A) 54.0 mm Hg 35-45 ARTERIAL BLOOD GAS PO2 (test code=PO2A) 168.6 mmHg 80-100 BICARBONATE TOTAL HCO3 (test code=HCO3) 23.4 mmol/L 23.0-27.0 BASE EXCESS (test code=SHAREE) -4.3 mmol/L -3.0-5.0 Results called to and read back by adrian 04:55 - 06/05/2018; by alberto khanna ABG O2 SATURATION (test code=SATA) 98.7 % 90.0-98.0 ABG TYPE (test code=TYPEA) Arterial FIO2 (test code=FIO2A) 100.0 ABG VENT MODE (test code=MODEA) Assist Control ABG VENT RESP RATE (test code=RRA) 14.0 per min ABG TIDAL VOLUME (test code=TVA) 450.0 mL ABG PEEP (test code=PEEPA) 5.0 cmH2O ABG SITE (test code=SITEA) Rt RADIAL ARTERY HEMATOCRIT (test code=HCT/ABG) 40 % 42-52 TOTAL HGB (test code=THB) 13.5 gram/dL 13.0-17.5 HGB O2 SAT (test code=HBOSAT) 97.1 % 94.00-98.00 CARBOXYHEMOGLOBIN (test code=HOHGBT) 0.9 %totalHg 0.5-1.5 METHEMOGLOBIN (test code=METHGB) 0.7 % 0.0-1.50 O2 CONTENT (test code=O2CT) 18.8 % vol 18.0-22.0 PROCALCITONIN (PCT)2018-06-05 04:37:00* Test Item Value Reference Range Comments PROCALCITONIN (PCT) (test code=PROCAL) 0.08 ng/ml Concentration Interpretation (ng/mL) <0.51 Sepsis is not likely. Local bacterial infection is possible. (LOW RISK for progression to Sepsis) 0.51 - 2.00 Sepsis is possible, but other conditions are known to elevate PCT as well. (MODERATE RISK for progression to Sepsis) > 2.00 Sepsis is likely, unless other causes are known. (HIGH RISK for progression to Severe Sepsis or Septic Shock) 10.00 High likelihood of Severe Sepsis or Septic or higher Shock. *Increased PCT levels may not always be related to systemic bacterial infection.*Low PCT levels do not automatically exclude the presence of bacterial infection.*All results should be interpreted taking into account the patients history. COMPREHENSIVE METABOLIC [id number] 04:33:00* Test Item Value Reference Range Comments SODIUM (test code=NA) 140 mmol/L 136-145 POTASSIUM (test code=K) 3.6 mmol/L 3.5-5.1 CHLORIDE (test code=CL) 109.0 mmol/L 98-107 CARBON DIOXIDE (test code=CO2) 26.0 mmol/L 21-32 ANION GAP (test code=GAP) 8.6 10-20 GLUCOSE (test code=GLU) 24 mg/dL 74-106 Results called to [id number] by CAMI 06/05/18 0430Critical results verified and read back by Nurse? Y BLOOD UREA NITROGEN (test code=BUN) 8 mg/dL 7-18 GLOMERULAR FILTRATION RATE (test code=GFR) > 60 mL/min >=60 Estimated GFR by using Modified MDRD formula.Chronic kidney disease is defined as either kidney damageor GFR <60 mL/min/1.73 m2 for >3 months. CREATININE (test code=CREAT) 0.90 mg/dL 0.7-1.3 BUN/CREATININE RATIO (test code=BUN/CREA) 8.9 10-20 TOTAL PROTEIN (test code=PROT) 7.1 gram/dL 6.4-8.2 ALBUMIN (test code=ALB) 3.2 g/dL 3.4-5.0 GLOBULIN (test code=GLOB) 3.9 gram/dL 2.7-4.2 ALBUMIN/GLOBULIN RATIO (test code=A/G) 0.8 0.75-1.50 CALCIUM (test code=CA) 8.3 mg/dL 8.5-10.1 BILIRUBIN TOTAL (test code=BILT) 0.30 mg/dL 0.0-1.0 SGOT/AST (test code=AST) 50 IUnit/L 15-37 SGPT/ALT (test code=ALT) 64 IUnit/L 12-78 ALKALINE PHOSPHATASE TOTAL (test code=ALKP) 65 IUnit/L 45-117 Note change in reference range due to change in reagent. [id number] 04:25:00* Test Item Value Reference Range Comments MAGNESIUM (test code=MAG) 1.6 mg/dL 1.8-2.4 LACTIC [id number] 04:25:00* Test Item Value Reference Range Comments LACTIC ACID (test code=LACT) 1.8 mmol/L 0.4-1.9 VALPROIC ACID (DEPAKENE)2018-06-05 04:25:00* Test Item Value Reference Range Comments VALPROIC ACID (DEPAKENE) (test code=VALP) 114.0 mcg/mL 50.0-100.0 CBC W/AUTO [id number] 03:52:00* Test Item Value Reference Range Comments WHITE BLOOD CELL (test code=WBC) 14.7 K/mm3 4.5-12.5 RED BLOOD CELL (test code=RBC) 4.46 mill/mm3 4.0-5.8 HEMOGLOBIN (test code=HGB) 13.6 gram/dL 13.0-17.5 HEMATOCRIT (test code=HCT) 43.6 % 42.0-52.0 MEAN CELL VOLUME (test code=MCV) 97.8 fL 80-98 MEAN CELL HGB (test code=MCH) 30.5 picogram 27.0-33.0 MEAN CELL HGB CONCETRATION (test code=MCHC) 31.2 gram/dL 33.0-36.0 RED CELL DISTRIBUTION WIDTH (test code=RDW) 12.4 % 11.6-16.2 RED CELL DISTRIBUTION WIDTH SD (test code=RDW-SD) 44.5 fL 37.0-51.0 PLATELET COUNT (test code=PLT) 274 K/mm3 150-450 RESULT VERIFIED BY REPEAT ANALYSIS MEAN PLATELET VOLUME (test code=MPV) 11.1 fL 6.7-11.0 NEUTROPHIL % (test code=NT%) 82.6 % 39.0-69.0 IMMATURE GRANULOCYTE % (test code=IG%) 1.0 % 0.0-5.0 LYMPHOCYTE % (test code=LY%) 9.2 % 25.0-55.0 MONOCYTE % (test code=MO%) 6.9 % 0.0-10.0 EOSINOPHIL % (test code=EO%) 0.0 % 0.0-5.0 BASOPHIL % (test code=BA%) 0.3 % 0.0-1.0 NUCLEATED RBC % (test code=NRBC%) 0.0 % 0-0 NEUTROPHIL # (test code=NT#) 12.16 K/mm3 1.8-7.7 IMMATURE GRANULOCYTE # (test code=IG#) 0.14 x10 3/uL 0-0.03 LYMPHOCYTE # (test code=LY#) 1.36 K/mm3 1.0-5.0 MONOCYTE # (test code=MO#) 1.01 K/mm3 0-0.8 EOSINOPHIL # (test code=EO#) 0.00 K/mm3 0.0-0.5 BASOPHIL # (test code=BA#) 0.04 K/mm3 0.0-0.2 NUCLEATED RBC # (test code=NRBC#) 0.00 K/mm3 0.0-0.1 MANUAL DIFF REQUIRED (test code=MDIFF) NO - XR CHEST 1 [id number] 03:21:00 FAX: Omaira Vazquez MD [phone] [place]: [address] St: ADM FAX: Aravind Spain Name: CALE DAVID [employer] : 1980 Age/S: 38/M [address] Unit #: [id number] Loc: [place] [address] Phys: Aravind Spain MD Acct: [id number] Dis Date: Status: ADM IN PHONE #: [phone] Exam Date: 06/05/2018316 FAX #: [phone] Reason: intubation EXAMS: CPT CODE: [id number] XR CHEST 1 V [id number] EXAM: - XR CHEST 1 V HISTORY: Intubated. COMPARISON: June 04, 2018. FINDINGS: Single AP view of the chest is provided. Endotracheal tube is 4 cm above the ara. NG tube is in the stomach. Heart size and vascularity are within normal limits. Bilateral basilar opacities may represent airspace disease, congestion or small pleural effusions. No pneumothorax, or acute osseous abnormality. IMPRESSION: ET tube and NG tube are in place. Basilar opacities bilaterally may represent airspace disease, congestion or effusions. at 0321 Reported and signed by: Behzad Hope MD CC: Omaira Diaz MD; Aravind Spain MD Technologist: KEEGAN KEY, RT(R); Sarah Teran Trnscrd Date/Time/By: 06/05/2018 (032) : By: [email or web address] Orig Print D/T: S: 06/05/2018 (0324) PAGE 1 Signed Report [id number] 02:52:00* Test Item Value Reference Range Comments AMMONIA (test code=AMM) 94 umol/L 11-32 ARTERIAL BLOOD [id number] 00:34:00* Test Item Value Reference Range Comments ARTERIAL BLOOD GAS PH (test code=PHA) 7.31 7.35-7.45 ARTERIAL BLOOD GAS PCO2 (test code=PCO2A) 45.0 mm Hg 35-45 ARTERIAL BLOOD GAS PO2 (test code=PO2A) 88.3 mmHg 80-100 BICARBONATE TOTAL HCO3 (test code=HCO3) 22.4 mmol/L 23.0-27.0 BASE EXCESS (test code=SHAREE) -3.9 mmol/L -3.0-5.0 Results called to and read back by mitzibannerroberth : - 06/05/2018; by alberto financial management consultant ABG O2 SATURATION (test code=SATA) 96.0 % 90.0-98.0 ABG TYPE (test code=TYPEA) Arterial FIO2 (test code=FIO2A) 100.0 ABG SITE (test code=SITEA) Rt RADIAL ARTERY HEMATOCRIT (test code=HCT/ABG) 42 % 42-52 TOTAL HGB (test code=THB) 14.2 gram/dL 13.0-17.5 HGB O2 SAT (test code=HBOSAT) 92.4 % 94.00-98.00 CARBOXYHEMOGLOBIN (test code=HOHGBT) 3.2 %totalHg 0.5-1.5 Results called to and read back by [facility] : - 06/05/2018; by alberto financial management consultant METHEMOGLOBIN (test code=METHGB) 0.5 % 0.0-1.50 O2 CONTENT (test code=O2CT) 18.5 % vol 18.0-22.0 URINALYSIS [id number] 23:06:00* Test Item Value Reference Range Comments UA COLOR (test code=COLU) LIGHT YELLOW YELLOW UA APPEARANCE (test code=APPU) CLEAR CLEAR UA GLUCOSE DIPSTICK (test code=DGLUU) 150 (1+) mg/dL NEGATIVE UA BILIRUBIN DIPSTICK (test code=BILU) NEGATIVE mg/dL NEGATIVE UA KETONE DIPSTICK (test code=KETU) Negative mg/dL NEGATIVE UA SPECIFIC GRAVITY (test code=SGU) 1.010 1.001-1.035 UA BLOOD DIPSTICK (test code=RONEY) Negative NEGATIVE UA PH DIPSTICK (test code=THONG) 6.0 5.0-8.0 UA PROTEIN DIPSTICK (test code=PROU) Negative mg/dL NEGATIVE UA UROBILINIOGEN DIPSTICK (test code=URO) NEGATIVE mg/dL NEGATIVE UA NITRITE DIPSTICK (test code=RENETTA) NEGATIVE NEGATIVE UA LEUKOCYTE ESTERASE W REFLEX (test code=LEUUR) NEGATIVE NEGATIVE UA WBC (test code=WBCU) 0-5 #/HPF 0-5 UA RBC (test code=RBCU) 0-2 #/HPF 0-5 UA EPITHELIAL CELLS (test code=EPIU) None seen per HPF FEW UA BACTERIA (test code=BACU) NONE SEEN #/HPF NONE UA MUCUS (test code=MUCU) FEW #/LPF FEW Urine Source? Clean CatchDRUGS OF ABUSE SCREEN [id number] 23:06:00* Test Item Value Reference Range Comments URN COCAINE (test code=COCAURN) NEGATIVE <300 ng/mL URN CANNABINOIDS (test code=CANNABURN) POSITIVE <50 ng/mL This test provides only a preliminary test result. A morespecific alternate chemical method must be used in order toobtain a confirmed analytical result. Gas chromatography/mass spectrometry (GC/MS) is thepreferred confirmatory method. Other chemical confirmationmethods are available. Clinical consideration and professional judgment should be applied to any drug of abusetest result, particularly when preliminary positive resultsare used.Unconfirmed screening results must not be used fornon-medical purposes (e.g., employment testing, legaltesting). URN AMPHETAMINE (test code=AMPHETURN) NEGATIVE <1000 ng/mL URN BARBITURATE (test code=BARBITURN) NEGATIVE <200 ng/mL URN BENZODIAZEPINE (test code=BENZOURN) NEGATIVE <200 ng/mL URN OPIATES (test code=OPIATURN) POSITIVE <300 ng/mL This test provides only a preliminary test result. A morespecific alternate chemical method must be used in order toobtain a confirmed analytical result. Gas chromatography/mass spectrometry (GC/MS) is thepreferred confirmatory method. Other chemical confirmationmethods are available. Clinical consideration and professional judgment should be applied to any drug of abusetest result, particularly when preliminary positive resultsare used.Unconfirmed screening results must not be used fornon-medical purposes (e.g., employment testing, legaltesting). URN PHENCYCLIDINE (PCP) (test code=PHENCURN) NEGATIVE <25 ng/mL URN METHADONE (test code=METHAURN) NEGATIVE <300 ng/mL Urine Source? Clean CatchURINALYSIS [id number] 22:45:00* Test Item Value Reference Range Comments UA COLOR (test code=COLU) LIGHT YELLOW YELLOW UA APPEARANCE (test code=APPU) CLEAR CLEAR UA GLUCOSE DIPSTICK (test code=DGLUU) 150 (1+) mg/dL NEGATIVE UA BILIRUBIN DIPSTICK (test code=BILU) NEGATIVE mg/dL NEGATIVE UA KETONE DIPSTICK (test code=KETU) Negative mg/dL NEGATIVE UA SPECIFIC GRAVITY (test code=SGU) 1.010 1.001-1.035 UA BLOOD DIPSTICK (test code=RONEY) Negative NEGATIVE UA PH DIPSTICK (test code=THONG) 6.0 5.0-8.0 UA PROTEIN DIPSTICK (test code=PROU) Negative mg/dL NEGATIVE UA UROBILINIOGEN DIPSTICK (test code=URO) NEGATIVE mg/dL NEGATIVE UA NITRITE DIPSTICK (test code=RENETTA) NEGATIVE NEGATIVE UA LEUKOCYTE ESTERASE W REFLEX (test code=LEUUR) NEGATIVE NEGATIVE UA WBC (test code=WBCU) 0-5 #/HPF 0-5 UA RBC (test code=RBCU) 0-2 #/HPF 0-5 UA EPITHELIAL CELLS (test code=EPIU) None seen per HPF FEW UA BACTERIA (test code=BACU) NONE SEEN #/HPF NONE UA MUCUS (test code=MUCU) FEW #/LPF FEW Urine Source? Clean CatchDRUGS OF ABUSE SCREEN [id number] 22:45:00* Test Item Value Reference Range Comments URN COCAINE (test code=COCAURN) <300 ng/mL URN CANNABINOIDS (test code=CANNABURN) <50 ng/mL URN AMPHETAMINE (test code=AMPHETURN) <1000 ng/mL URN BARBITURATE (test code=BARBITURN) <200 ng/mL URN BENZODIAZEPINE (test code=BENZOURN) <200 ng/mL URN OPIATES (test code=OPIATURN) <300 ng/mL URN PHENCYCLIDINE (PCP) (test code=PHENCURN) <25 ng/mL URN METHADONE (test code=METHAURN) <300 ng/mL Urine Source? Clean CatchURINALYSIS [id number] 22:34:00* Test Item Value Reference Range Comments UA COLOR (test code=COLU) LIGHT YELLOW YELLOW UA APPEARANCE (test code=APPU) CLEAR CLEAR UA BILIRUBIN DIPSTICK (test code=BILU) NEGATIVE mg/dL NEGATIVE UA KETONE DIPSTICK (test code=KETU) Negative mg/dL NEGATIVE UA SPECIFIC GRAVITY (test code=SGU) 1.010 1.001-1.035 UA BLOOD DIPSTICK (test code=RONEY) Negative NEGATIVE UA PH DIPSTICK (test code=THONG) 6.0 5.0-8.0 UA PROTEIN DIPSTICK (test code=PROU) Negative mg/dL NEGATIVE UA UROBILINIOGEN DIPSTICK (test code=URO) NEGATIVE mg/dL NEGATIVE UA NITRITE DIPSTICK (test code=RENETTA) NEGATIVE NEGATIVE UA LEUKOCYTE ESTERASE W REFLEX (test code=LEUUR) NEGATIVE NEGATIVE UA WBC (test code=WBCU) per HPF 0-5 Urine Source? Clean CatchDRUGS OF ABUSE SCREEN [id number] 22:34:00* Test Item Value Reference Range Comments URN COCAINE (test code=COCAURN) <300 ng/mL URN CANNABINOIDS (test code=CANNABURN) <50 ng/mL URN AMPHETAMINE (test code=AMPHETURN) <1000 ng/mL URN BARBITURATE (test code=BARBITURN) <200 ng/mL URN BENZODIAZEPINE (test code=BENZOURN) <200 ng/mL URN OPIATES (test code=OPIATURN) <300 ng/mL URN PHENCYCLIDINE (PCP) (test code=PHENCURN) <25 ng/mL URN METHADONE (test code=METHAURN) <300 ng/mL Urine Source? Clean CatchCBC W/AUTO [id number] 22:33:00* Test Item Value Reference Range Comments WHITE BLOOD CELL (test code=WBC) 8.1 K/mm3 4.5-12.5 RED BLOOD CELL (test code=RBC) 4.21 mill/mm3 4.0-5.8 HEMOGLOBIN (test code=HGB) 13.3 gram/dL 13.0-17.5 HEMATOCRIT (test code=HCT) 40.6 % 42.0-52.0 MEAN CELL VOLUME (test code=MCV) 96.4 fL 80-98 MEAN CELL HGB (test code=MCH) 31.6 picogram 27.0-33.0 MEAN CELL HGB CONCETRATION (test code=MCHC) 32.8 gram/dL 33.0-36.0 RED CELL DISTRIBUTION WIDTH (test code=RDW) 12.5 % 11.6-16.2 RED CELL DISTRIBUTION WIDTH SD (test code=RDW-SD) 44.0 fL 37.0-51.0 PLATELET COUNT (test code=PLT) 209 K/mm3 150-450 MEAN PLATELET VOLUME (test code=MPV) 11.7 fL 6.7-11.0 NEUTROPHIL % (test code=NT%) 61.3 % 39.0-69.0 IMMATURE GRANULOCYTE % (test code=IG%) 2.1 % 0.0-5.0 LYMPHOCYTE % (test code=LY%) 21.9 % 25.0-55.0 MONOCYTE % (test code=MO%) 13.7 % 0.0-10.0 EOSINOPHIL % (test code=EO%) 0.6 % 0.0-5.0 BASOPHIL % (test code=BA%) 0.4 % 0.0-1.0 NUCLEATED RBC % (test code=NRBC%) 0.0 % 0-0 NEUTROPHIL # (test code=NT#) 4.97 K/mm3 1.8-7.7 IMMATURE GRANULOCYTE # (test code=IG#) 0.17 x10 3/uL 0-0.03 LYMPHOCYTE # (test code=LY#) 1.78 K/mm3 1.0-5.0 MONOCYTE # (test code=MO#) 1.11 K/mm3 0-0.8 EOSINOPHIL # (test code=EO#) 0.05 K/mm3 0.0-0.5 BASOPHIL # (test code=BA#) 0.03 K/mm3 0.0-0.2 NUCLEATED RBC # (test code=NRBC#) 0.00 K/mm3 0.0-0.1 MANUAL DIFF REQUIRED (test code=MDIFF) NO CBC W/AUTO [id number] 22:26:00* Test Item Value Reference Range Comments WHITE BLOOD CELL (test code=WBC) K/mm3 4.5-12.5 RED BLOOD CELL (test code=RBC) mill/mm3 4.0-5.8 HEMOGLOBIN (test code=HGB) 13.3 gram/dL 13.0-17.5 HEMATOCRIT (test code=HCT) % 42.0-52.0 MEAN CELL VOLUME (test code=MCV) fL 80-98 MEAN CELL HGB (test code=MCH) picogram 27.0-33.0 MEAN CELL HGB CONCETRATION (test code=MCHC) gram/dL 33.0-36.0 RED CELL DISTRIBUTION WIDTH (test code=RDW) % 11.6-16.2 RED CELL DISTRIBUTION WIDTH SD (test code=RDW-SD) fL 37.0-51.0 PLATELET COUNT (test code=PLT) K/mm3 150-450 MEAN PLATELET VOLUME (test code=MPV) fL 6.7-11.0 NEUTROPHIL % (test code=NT%) % 39.0-69.0 IMMATURE GRANULOCYTE % (test code=IG%) % 0.0-5.0 LYMPHOCYTE % (test code=LY%) % 25.0-55.0 MONOCYTE % (test code=MO%) % 0.0-10.0 EOSINOPHIL % (test code=EO%) % 0.0-5.0 BASOPHIL % (test code=BA%) % 0.0-1.0 NEUTROPHIL # (test code=NT#) K/mm3 1.8-7.7 LYMPHOCYTE # (test code=LY#) K/mm3 1.0-5.0 MONOCYTE # (test code=MO#) K/mm3 0-0.8 EOSINOPHIL # (test code=EO#) K/mm3 0.0-0.5 BASOPHIL # (test code=BA#) K/mm3 0.0-0.2 BASIC METABOLIC [id number] 22:25:00* Test Item Value Reference Range Comments SODIUM (test code=NA) 141 mmol/L 136-145 POTASSIUM (test code=K) 3.3 mmol/L 3.5-5.1 CHLORIDE (test code=CL) 107.0 mmol/L 98-107 CARBON DIOXIDE (test code=CO2) 28.0 mmol/L 21-32 ANION GAP (test code=GAP) 9.3 10-20 GLUCOSE (test code=GLU) 111 mg/dL 74-106 BLOOD UREA NITROGEN (test code=BUN) 9 mg/dL 7-18 GLOMERULAR FILTRATION RATE (test code=GFR) > 60 mL/min >=60 Estimated GFR by using Modified MDRD formula.Chronic kidney disease is defined as either kidney damageor GFR <60 mL/min/1.73 m2 for >3 months. CREATININE (test code=CREAT) 1.10 mg/dL 0.7-1.3 BUN/CREATININE RATIO (test code=BUN/CREA) 8.2 10-20 CALCIUM (test code=CA) 8.6 mg/dL 8.5-10.1 HEPATIC FUNCTION [id number] 22:25:00* Test Item Value Reference Range Comments TOTAL PROTEIN (test code=PROT) 6.9 gram/dL 6.4-8.2 ALBUMIN (test code=ALB) 3.3 g/dL 3.4-5.0 GLOBULIN (test code=GLOB) 3.6 gram/dL 2.7-4.2 ALBUMIN/GLOBULIN RATIO (test code=A/G) 0.9 0.75-1.50 BILIRUBIN TOTAL (test code=BILT) 0.20 mg/dL 0.0-1.0 BILIRUBIN DIRECT (test code=BILD) 0.11 mg/dL 0.0-0.20 SGOT/AST (test code=AST) 60 IUnit/L 15-37 SGPT/ALT (test code=ALT) 62 IUnit/L 12-78 ALKALINE PHOSPHATASE TOTAL (test code=ALKP) 65 IUnit/L 45-117 Note change in reference range due to change in reagent. [id number] 22:25:00* Test Item Value Reference Range Comments TROPONIN-I (test code=TROPI) <0.015 ng/mL 0-0.045 [id number] 22:25:00* Test Item Value Reference Range Comments ACETAMINOPHEN (test code=ACET) < 10 mcg/mL 10-30 A RANGE OF 10-30 mcg/mL IS A THERAPEUTIC RANGE. TOXIC CONCENTRATIONS: >150 mcg/mL AT 4 HOURS AFTER INGESTION >=50 mcg/mL AT 12 HOURS AFTER INGESTION [id number] 22:25:00* Test Item Value Reference Range Comments SALICYLATE (test code=MAINOR) 2.8 mg/dL 2.8-20.0 [id number] 22:25:00* Test Item Value Reference Range Comments ALCOHOL (test code=ALC) < 3 mg/dL 0.0-3.0 INTERPRETIVE DATA NOTE: POSITIVE SCREENING RESULTS SHOULD BE CONSIDERED PRESUMPTIVE.WHEN COLLECTED FOR MEDICAL PURPOSES ONLY. SPECIMEN WILL NOTBE COLLECTED BY CHAIN OF CUSTODY.IF A CONFIRMATION OF POSITIVE RESULTS IS DESIRED, ACONFIRMATION TEST MUST BE REQUESTED BY THE PHYSICIAN AT ANADDITIONAL CHARGE TO THE PATIENT. BASIC METABOLIC [id number] 22:24:00* Test Item Value Reference Range Comments SODIUM (test code=NA) 141 mmol/L 136-145 POTASSIUM (test code=K) 3.3 mmol/L 3.5-5.1 CHLORIDE (test code=CL) 107.0 mmol/L 98-107 CARBON DIOXIDE (test code=CO2) mmol/L 21-32 ANION GAP (test code=GAP) 10-20 GLUCOSE (test code=GLU) mg/dL 74-106 BLOOD UREA NITROGEN (test code=BUN) mg/dL 7-18 GLOMERULAR FILTRATION RATE (test code=GFR) mL/min >=60 CREATININE (test code=CREAT) mg/dL 0.7-1.3 BUN/CREATININE RATIO (test code=BUN/CREA) 10-20 CALCIUM (test code=CA) mg/dL 8.5-10.1 HEPATIC FUNCTION [id number] 22:24:00* Test Item Value Reference Range Comments TOTAL PROTEIN (test code=PROT) gram/dL 6.4-8.2 ALBUMIN (test code=ALB) g/dL 3.4-5.0 GLOBULIN (test code=GLOB) gram/dL 2.7-4.2 ALBUMIN/GLOBULIN RATIO (test code=A/G) 0.75-1.50 BILIRUBIN TOTAL (test code=BILT) mg/dL 0.0-1.0 BILIRUBIN DIRECT (test code=BILD) mg/dL 0.0-0.20 SGOT/AST (test code=AST) IUnit/L 15-37 SGPT/ALT (test code=ALT) IUnit/L 12-78 ALKALINE PHOSPHATASE TOTAL (test code=ALKP) IUnit/L 45-117 [id number] 22:24:00* Test Item Value Reference Range Comments TROPONIN-I (test code=TROPI) ng/mL 0-0.045 [id number] 22:24:00* Test Item Value Reference Range Comments ACETAMINOPHEN (test code=ACET) < 10 mcg/mL 10-30 A RANGE OF 10-30 mcg/mL IS A THERAPEUTIC RANGE. TOXIC CONCENTRATIONS: >150 mcg/mL AT 4 HOURS AFTER INGESTION >=50 mcg/mL AT 12 HOURS AFTER INGESTION [id number] 22:24:00* Test Item Value Reference Range Comments SALICYLATE (test code=MAINOR) 2.8 mg/dL 2.8-20.0 [id number] 22:24:00* Test Item Value Reference Range Comments ALCOHOL (test code=ALC) mg/dL 0-3 - XR CHEST 1 [id number] 22:21:00 FAX: Aravind Spain [place]: B St: REG Name: Cindy ARCHULETACALE SIDDIQI [employer] : [birth year] Age/S: 38/M [address] [facility] Unit #: [id number] Loc: [place] [address] Phys: Aravind Spain MD Acct: [id number] Dis Date: Status: REG ER PHONE #: [phone] Exam Date: 06/04/20182215 FAX #: [phone] Reason: Altered Mental Status EXAMS: CPT CODE: [id number] XR CHEST 1 V [id number] EXAM: Chest x-ray, one view; INFORMATION: Altered mental status, ingestion; FINDINGS: Elevation of the diaphragm bilaterally, right greater than left. Patchy densities in the right upper lobe and the right lower lobe. The left lung is clear. No pleural effusions; no pneumothorax. Unremarkable ca rdiac mediastinal silhouette. IMPRESSION: Mild patchy in filtrates the right upper and lower lobes. Electronically S igned by Skyler Gomez on 06/04/2018 at 2221 Reported and signed by: Narciso Gomez M.D. CC: Aravind Spain MD Technologist: RT MODESTO(Jonnathan) Trnscrd Date/Time/By: 06/04/2018 (2220) : By: [email or web address] Orig Print D/T: S: 06/04/2018 ([id number]) PAGE 1 Signed Report BASIC METABOLIC [id number] 22:20:00* Test Item Value Reference Range Comments SODIUM (test code=NA) 141 mmol/L 136-145 POTASSIUM (test code=K) 3.3 mmol/L 3.5-5.1 CHLORIDE (test code=CL) 107.0 mmol/L 98-107 CARBON DIOXIDE (test code=CO2) mmol/L 21-32 ANION GAP (test code=GAP) 10-20 GLUCOSE (test code=GLU) mg/dL 74-106 BLOOD UREA NITROGEN (test code=BUN) mg/dL 7-18 GLOMERULAR FILTRATION RATE (test code=GFR) mL/min >=60 CREATININE (test code=CREAT) mg/dL 0.7-1.3 BUN/CREATININE RATIO (test code=BUN/CREA) 10-20 CALCIUM (test code=CA) mg/dL 8.5-10.1 HEPATIC FUNCTION [id number] 22:20:00* Test Item Value Reference Range Comments TOTAL PROTEIN (test code=PROT) gram/dL 6.4-8.2 ALBUMIN (test code=ALB) g/dL 3.4-5.0 GLOBULIN (test code=GLOB) gram/dL 2.7-4.2 ALBUMIN/GLOBULIN RATIO (test code=A/G) 0.75-1.50 BILIRUBIN TOTAL (test code=BILT) mg/dL 0.0-1.0 BILIRUBIN DIRECT (test code=BILD) mg/dL 0.0-0.20 SGOT/AST (test code=AST) IUnit/L 15-37 SGPT/ALT (test code=ALT) IUnit/L 12-78 ALKALINE PHOSPHATASE TOTAL (test code=ALKP) IUnit/L 45-117 [id number] 22:20:00* Test Item Value Reference Range Comments TROPONIN-I (test code=TROPI) ng/mL 0-0.045 [id number] 22:20:00* Test Item Value Reference Range Comments ACETAMINOPHEN (test code=ACET) mcg/mL 10-30 [id number] 22:20:00* Test Item Value Reference Range Comments SALICYLATE (test code=MAINOR) mg/dL 2.8-20.0 [id number] 22:20:00* Test Item Value Reference Range Comments ALCOHOL (test code=ALC) mg/dL 0-3 - CT HEAD/BRAIN W/O [id number] 22:17:00 Name: CALE DAVID [employer] : 1980 Age/S: 38 / M [address] [facility]: [id number] Loc: [place] [address] Phys: Aravind Spain MD Acct: [id number] Dis Date: Status: REG ER PHONE #: [phone] Exam Date: 06/04/20182203 FAX #: [phone] Reason: Altered Mental Status EXAMS: CPT CODE: [id number] CT HEAD/BRAIN W/O CONT [id number] EXAM: CT of the head without contrast; INFORMATION: Altered mental status, ingestion; TECHNIQUE: CT dose reduction protocol; 2.5 mm axial scans; IMPRESSION: 1. No evidence of intracranial hemorrhage, acute territorial infarction, mass lesions or midline shift. 2. Bone windows show no evidence of skull fracture. 3. The previously seen right maxillary hemosinus has resolved. 4. Otherwise, no change compared with the study from February 20172017. at 2217 Reported and signed by: Narciso Gomez M.D. CC: Aravind Spain MD Technologist:Trent Alvarado, RT(R)(CT); July CTDI: DLP: Trnscb Date/Time: 06/04/2018 (2216) Sandra Orig Print D/T: S: 06/04/2018 (2220) CTDI: DLP: PAGE 1 Signed Report
[2018-12-20] MEDS ORDERED: AMOXICILLIN/CLAVULANATE K 875 MG TAB PO STA (23:19)
--- OUTSIDE RECORDS SUMMARY | 2018-12-20 23:19 | XMS REPORT | Summary of Care ---
Author Author [facility] - Health Organization [facility] - Health Address Unknown Phone Unavailable Care Team Providers Care Welding Process Engineer Name Role Phone Fred Chowdhury PCP Reason for Referral * (Routine) Referred By Contact Referred To Contact Status Reason Specialty Diagnoses / Procedures Estrada, Asiya, SOIL SORT WORKER [address] [place] [address] Fred Chowdhury [address] [place] [address] New Request Diagnoses Intentional drug overdose, initial encounter P rocedures Discharge Follow-up: PCP FRED CHOWDHURY; 4-6 Weeks * Radiology Services (STAT) Referred By Contact Referred To Contact Status Reason Specialty Diagnoses / Procedures Estrada, Asiya, SOIL SORT WORKER [address] [place] [address] New Request Diagnostic Diagnoses Radiology Intentional drug overdose, initial encounter P rocedures XR CHEST 2 VW * Radiology Services (STAT) Referred By Contact Referred To Contact Status Reason Specialty Diagnoses / Procedures Estrada, Asiya, SOIL SORT WORKER [address] [place] [address] New Request Diagnostic Diagnoses Radiology Intentional drug overdose, initial encounter P rocedures XR CHEST 2 VW * Radiology Services (STAT) Referred By Contact Referred To Contact Status Reason Specialty Diagnoses / Procedures Estrada, Asiya, SOIL SORT WORKER [address] [place] [address] New Request Diagnostic Diagnoses Radiology Intentional drug overdose, initial encounter P rocedures XR CHEST 1 VW * Radiology Services (STAT) Referred By Contact Referred To Contact Status Reason Specialty Diagnoses / Procedures Estrada, Asiya, SOIL SORT WORKER [address] [place] [phone] New Request Diagnostic Diagnoses Radiology Intentional drug overdose, initial encounter P rocedures XR CHEST 1 VW * Radiology Services (STAT) Referred By Contact Referred To Contact Status Reason Specialty Diagnoses / Procedures Estrada, Asiya, SOIL SORT WORKER [address] [place] [phone] New Request Diagnostic Diagnoses Radiology Intentional drug overdose, initial encounter P rocedures XR CHEST 1 VW * Radiology Services (STAT) Referred By Contact Referred To Contact Status Reason Specialty Diagnoses / Procedures Estrada, Asiya, SOIL SORT WORKER [address] [place] [address] New Request Diagnostic Diagnoses Radiology Intentional drug overdose, initial encounter P rocedures XR CHEST 1 VW * Radiology Services (Routine) Referred By Contact Referred To Contact Status Reason Specialty Diagnoses / Procedures Johana Tsai MD [address] [place] [phone] New Request Diagnostic Diagnoses Radiology Intentional drug overdose, initial encounter P rocedures Abdominal 1 View - To confirm nasogastric tube placement. * Radiology Services (Routine) Referred By Contact Referred To Contact Status Reason Specialty Diagnoses / Procedures Johana Tsai MD [address] [place] [address] New Request Diagnostic Diagnoses Radiology Intentional drug overdose, initial encounter P rocedures Abdominal 1 View - To confirm nasogastric tube placement. * Radiology Services (STAT) Referred By Contact Referred To Contact Status Reason Specialty Diagnoses / Procedures Matt Garcia MD [address] [facility] [address] [place] [address] New Request Diagnostic Diagnoses Radiology Drug overdose, undetermined intent, initial encounter P rocedures XR CHEST 1 VW * Radiology Services (STAT) Referred By Contact Referred To Contact Status Reason Specialty Diagnoses / Procedures Matt Garcia MD [address] [place] [address] New Request Diagnostic Diagnoses Radiology Drug overdose, undetermined intent, initial encounter P rocedures XR CHEST 1 VW Reason for Visit * Reason Comments Overdose Suicide attempt * Auth/Cert Referred By Contact Referred To Contact Status Reason Specialty Diagnoses / Procedures [facility] [address] [place] [address] Emergency Medicine Encounter Details Care Team Description Date Type Department Matt Garcia MD [address] [place] [address] Semaj Kat MD [address] [place] [address] Overdose 10/22/2018 [facility] Intensive - Encounter Care Unit [facility] 7A 10/27/2018 [address] [place] [address] Allergies No Known Allergiesdocumented as of this encounter (statuses as of 10/27/2018) Medications End Date Status Medication Sig Dispensed Refills Start Date Active atenolol 50 mg tablet Take 50 mg by 0 mouth. Active divalproex ER 500 mg 24 Take 3 0 hr tablet tablets in the AM Take 5 tablets in the PM Active doxepin 50 mg capsule Take 50 mg by 0 mouth. Active Fenofibrate 160 mg tablet Take 160 mg 0 by mouth. 9 Active gabapentin 400 mg capsule Take 1,200 mg 0 by mouth. Active insulin aspart U-100 INJECT 15 0 (NOVOLOG FLEXPEN U-100 UNITS UNDER 9 INSULIN) 100 unit/mL (3 THE SKIN mL) injection BEFORE BREAKFAST, 15 UNITS BEFORE LUNCH AND 20 UNITS AT SUPPER MEALS Active Insulin Glargine (LANTUS inject 50 0 SOLOSTAR U-100 INSULIN) Units under 9 100 unit/mL (3 mL) the skin. injection Active lisinopril 10 mg tablet Take 10 mg by 0 mouth. 8 Active lurasidone (LATUDA) 120 Take 1 tablet 0 mg Tab by mouth. Active metFORMIN 500 mg tablet TAKE ONE 0 TABLET BY 9 MOUTH EVERY MORNING AND TAKE TWO TABLETS BY MOUTH EVERY EVENING Active PARoxetine (PAXIL) 40 mg Take 2 0 tablet tablets by mouth. Active simvastatin 40 mg tablet Take 40 mg by 0 mouth. 9 11/06/2018 Active amoxicillin-clavulanate Take 1 tablet 20 tablet 0 (AUGMENTIN) 875-125 mg by mouth 2 9 per tabletIndications: (two) times Intentional drug daily for 10 overdose, initial days. encounter 10/27/2018 Discontinued sildenafil (VIAGRA) 100 Take 100 mg 0 mg tablet by mouth. 9 documented as of this encounter (statuses as of 10/27/2018) Active Problems Problem Noted Date Overdose 10/22/2018 Obesity (BMI 30-39.9) 10/22/2018 documented as of this encounter (statuses as of 10/27/2018) Social History Date Tobacco Use Types Packs/Day Years Used Current Every Day Smoker Drinks/Week oz/Week Comments Alcohol Use Yes Sex Assigned at Date Recorded Not on file Industry Job Start Date Occupation Not on file Not on file Not on file Travel End Travel History Travel Start No recent travel history available. documented as of this encounter Last Filed Vital Signs Reading Time Taken Comments Vital Sign 110/53 10/27/2018 7:14 AM CDT Blood Pressure 76 10/27/2018 11:24 AM CDT Pulse 37.8 C (100 F) 10/27/2018 7:14 AM CDT Temperature 16 10/27/2018 11:24 AM CDT Respiratory Rate 93% 10/27/2018 11:24 AM CDT Oxygen Saturation - - Inhaled Oxygen Concentration 109 kg (240 lb 4.8 oz) 10/22/2018 8:00 PM CDT Weight 188 cm (6' 2") 10/22/2018 12:40 AM CDT Height 30.85 10/22/2018 12:40 AM CDT Body Mass Index documented in this encounter Discharge Summaries * Asiya Estrada FNP - 10/27/2018 10:37 AM CDT CLS Team Discharge Summary Date of Service: 10/27/2018 ADMIT DATE: 10/22/2018 DISCHARGE DATE: 10/27/2018 ATTENDING MD: CRISTOBAL Clarke PCP: Fred Chowdhury REASON FOR ADMISSION Drug overdose FINAL DIAGNOSIS: 1-s/p Acute hypoxic respiratory failure, Resolved 2-toxic/metabolic acute encephalopathy , secondary to drug overdose 3-Medication overdose 4-Suicidal attempt , he is evaluated by psyc who recommended inpatient psyc and he is accepted at [facility]. Will discharge Him today. 5-Uncontrolled DM Type I . Hyperglycemia but no DKA 6. Fever. Possible pna. Started on abx 7. Possible aspiration pneumonia. Fever subsided. Will discharge him on Augmenti n for 10 days. Orders Placed This Encounter CONSULT PSYCHIATRY Discharge Follow-up: PCP FRED CHOWDHURY; 4-6 Weeks Orders Placed This Encounter Intubation Temp: [36.8 C (98.3 F)-37.8 C (100 F)] Pulse: [76-104] Resp: [12-22] BP: (102-129)/(53-67) MAP (mmHg): [89] General: alert and oriented x 3. HEENT: pupils equal, reactive to light Lungs: clear to auscultation bilaterally, no crackles, no wheezes, Cardio: regular rate and rhythm, no murmurs, no gallops Abdomen: soft; non-tender; non-distended; normoactive bowel sounds Extremities: no cyanosis SIGNIFICANT LAB/X-RAYS: Recent Results (from the past 48 hour(s)) POCT GLUCOSE (AUTOMATED) Collection Time: 10/25/18 12:16 PM Result Value Ref Range POCT GLU 264 (H) 70 - 110 mg/dL POCT GLUCOSE (AUTOMATED) Collection Time: 10/25/18 5:09 PM Result Value Ref Range POCT GLU 225 (H) 70 - 110 mg/dL POCT GLUCOSE (AUTOMATED) Collection Time: 10/25/18 8:15 PM Result Value Ref Range POCT GLU 242 (H) 70 - 110 mg/dL BLOOD CULTURE SCREEN Collection Time: 10/26/18 12:22 AM Result Value Ref Range Blood Culture-Aerobic No growth at 24 hours No growth Blood Culture-Anaerobic No growth at 24 hours No growth BLOOD CULTURE SCREEN Collection Time: 10/26/18 12:22 AM Result Value Ref Range Blood Culture-Aerobic No growth at 24 hours No growth Blood Culture-Anaerobic No growth at 24 hours No growth BASIC METABOLIC PANEL (NA, K, CL, CO2, GLUCOSE, BUN, CREATININE, CA) Collection Time: 10/26/18 5:17 AM Result Value Ref Range NA 134 (L) 135 - 145 mmol/L K 4.0 3.5 - 5.0 mmol/L CL 106 98 - 108 mmol/L CO2 TOTAL 23 23 - 31 mmol/L AGAP 5 2 - 16 BUN 8 7 - 23 mg/dL GLUCOSE 195 (H) 70 - 110 mg/dL CREATININE 0.75 0.60 - 1.25 mg/dL CALCIUM 8.6 8.6 - 10.6 mg/dL eGFR Calculation (Non-) 116.6 mL/min/1.73m2 eGFR Calculation () 141.3 mL/min/1.73m2 CBC WITH DIFFERENTIAL Collection Time: 10/26/18 5:17 AM Result Value Ref Range WBC 10.14 4.20 - 10.70 10*3/L RBC 3.75 (L) 4.26 - 5.52 10*6/L HGB 11.8 (L) 12.2 - 16.4 g/dL HCT 35.2 (L) 38.4 - 49.3 % MCV 93.9 81.7 - 95.6 fL MCH 31.5 26.1 - 32.7 pg MCHC 33.5 31.2 - 35.0 g/dL RDW-SD 42.5 38.5 - 51.6 fL RDW-CV 12.2 12.1 - 15.4 % PLT 193 150 - 328 10*3/L MPV 10.8 9.8 - 13.0 fL NRBC/100 WBC 0.0 0.0 - 10.0 /100 WBCs NRBC x10^3 <0.01 10*3/L GRAN MAT (NEUT) % 53.3 % IMM GRAN % 0.90 % LYMPH % 26.0 % MONO % 15.8 % EOS % 3.5 % BASO % 0.5 % GRAN MAT x10^3(ANC) 5.41 1.99 - 6.95 10*3/uL IMM GRAN x10^3 0.09 (H) 0.00 - 0.06 10*3/uL LYMPH x10^3 2.64 1.09 - 3.23 10*3/uL MONO x10^3 1.60 (H) 0.36 - 1.02 10*3/uL EOS x10^3 0.35 0.06 - 0.53 10*3/uL BASO x10^3 0.05 0.01 - 0.09 10*3/uL Lactic Acid Whole Blood Collection Time: 10/26/18 8:54 AM Result Value Ref Range LACTIC ACID 0.92 0.50 - 2.20 mmol/L POCT GLUCOSE (AUTOMATED) Collection Time: 10/26/18 8:55 AM Result Value Ref Range POCT GLU 161 (H) 70 - 110 mg/dL URINALYSIS Collection Time: 10/26/18 11:13 AM Result Value Ref Range APPEARANCE Hazy (A) Clear COLOR Yellow Yellow PH 6.0 4.8 - 8.0 SP GRAVITY 1.010 1.003 - 1.030 GLU U QUAL 500 mg/dL (A) Normal BLOOD Negative Negative KETONES Negative Negative PROTEIN Negative Negative UROBILIN Normal Normal BILIRUBIN Negative Negative NITRITE Negative Negative LEUK KYLE Negative Negative RBC/HPF 1 0 - 3 HPF WBC/HPF 1 0 - 5 HPF BACTERIA Negative Negative AMORPHOUS Rare Rare HPF SQ EPITH <1 <=2 HPF SPUTUM CULTURE Collection Time: 10/26/18 11:28 AM Result Value Ref Range Gram stain Numerous Gram positive cocci Gram stain Few Gram negative bacilli Gram stain Occasional (Rare) Yeast Gram stain Moderate Polymorphonuclear leukocytes Gram stain Few Epithelial cells POCT GLUCOSE (AUTOMATED) Collection Time: 10/26/18 1:32 PM Result Value Ref Range POCT GLU 264 (H) 70 - 110 mg/dL POCT GLUCOSE (AUTOMATED) Collection Time: 10/26/18 5:39 PM Result Value Ref Range POCT GLU 272 (H) 70 - 110 mg/dL POCT GLUCOSE (AUTOMATED) Collection Time: 10/26/18 9:38 PM Result Value Ref Range POCT GLU 337 (H) 70 - 110 mg/dL POCT GLUCOSE (AUTOMATED) Collection Time: 10/27/18 3:08 AM Result Value Ref Range POCT GLU 280 (H) 70 - 110 mg/dL Xr Chest 2 Vw Result Date: 10/26/2018 Worsening of bilateral ill-defined streaky and patchy hazy parenchymal opacities , may represent multifocal infection in the proper clinical setting. If radiogra phic findings correlate with worsening clinical condition and suspicion for mult ifocal infection, consider further evaluation with CT chest with contrast. HOSPITAL COURSE: This is a 38 year old male who presented to hospital with suicide attempt. He wa s intubated and placed on ventilator for airway protection. We were manage to we an him off ventilator. Suicide precaution was in place. Psychiatrist was consult ed. He was also started on IV abx for possible aspiration pneumonia. This is his second suicide attempt. Evaluated by pscy who recommended inpatient psyc facili ty. He is accepted at [facility] and will be discharge today. He needs 10 days of Augmentin. ITEMS FOR FOLLOW UP PROVIDER: (including pending labs/cultures/studies, anticipa fernanda problems, etc.) May need CXR in 2 weeks FUNCTIONAL STATUS: fully ambulatory DISCHARGE CONDITION: good COGNITIVE STATUS: cognitively intact DISCHARGE INSTRUCTIONS: Discharge Orders Discharge Follow-up: PCP FRED CHOWDHURY; 4-6 Weeks To PCP: FRED CHOWDHURY [[id number]] Patient's Preferred Location: Unknown Discharge Disposition: Other-See Comments When (Patients with risk for unplanned readmission score over 16 or those noted as Hospital Dependent should follow up within 7 days with PCP or primary DX spec ialist): 4-6 Weeks Risk of Unplanned Readmission:( Score greater than 16 indicates high risk) 13 Regular Diet; Texture: Regular. Texture Regular. Diabetic: Unobtainable Discharge Condition - Discharge Condition: GOOD Discharge Activity Discharge Activity: As Tolerated VTE Propylaxis- Was ordered during hospitalization DISCHARGE MEDICATIONS: Current Discharge Medication List START taking these medications Details amoxicillin-clavulanate (AUGMENTIN) 1 tablet Take 1 tablet by mouth 2 (two) time s daily. Qty: 20 tablet, Refills: 0 Start date: 10/27/2018, End date: 11/06/2018 Associated Diagnoses: Intentional drug overdose, initial encounter CONTINUE these medications which have NOT CHANGED Details atenolol (TENORMIN) 50 mg Take 50 mg by mouth. divalproex ER 500 mg 24 hr tablet Take 3 tablets in the AM Take 5 tablets in the PM doxepin (SINEQUAN) 50 mg Take 50 mg by mouth. Fenofibrate (LOFIBRA) 160 mg Take 160 mg by mouth. gabapentin (NEURONTIN) 1,200 mg Take 1,200 mg by mouth. insulin aspart U-100 (NOVOLOG FLEXPEN U-100 INSULIN) 100 unit/mL (3 mL) injectio n INJECT 15 UNITS UNDER THE SKIN BEFORE BREAKFAST, 15 UNITS BEFORE LUNCH AND 20 UNITS AT SUPPER MEALS Insulin Glargine (LANTUS SOLOSTAR U-100 INSULIN) 50 Units inject 50 Units under the skin. lisinopril (PRINIVIL,ZESTRIL) 10 mg Take 10 mg by mouth. lurasidone (LATUDA) 1 tablet Take 1 tablet by mouth. metFORMIN 500 mg tablet TAKE ONE TABLET BY MOUTH EVERY MORNING AND TAKE TWO TABL ETS BY MOUTH EVERY EVENING PARoxetine (PAXIL) 2 tablets Take 2 tablets by mouth. simvastatin (ZOCOR) 40 mg Take 40 mg by mouth. STOP taking these medications sildenafil (VIAGRA) 100 mg Comments: Reason for Stopping: WOUND CARE: CODE STATUS: full code OXYGEN (is patient being discharged on oxygen): no PATIENT EDUCATION PROVIDED: DISCHARGE: [facility] FOLLOW-UP APPOINTMENT: PLAN FOR READMISSION: No Please call or text [phone] to contact CRISTOBAL Clarke with any questions. - Associated attestation - Johana Tsai MD - 10/27/2018 1:27 PM CDT I personally examined the patient on 10/27/2018 and agree with Asiya Estrada NP's note as written . I actively participated in the decision-making process. documented in this encounter Discharge Instructions * Attachments The following attachments cannot be sent through Care Everywhere.* Suicide, Warning Signs and What You Can Do (Kittitian) * Suicide, Recognizing Warning Signs in Yourself (Kittitian) * Amoxicillin capsules or tablets (Kittitian) documented in this encounter Progress Notes * Soraida Durant SW - 10/27/2018 11:34 AM CDT SOCIAL WORK NOTE Patient medically ready to discharge to [facility]. Called facility and confirmed that bed was still available ( spoke with Darrius). Clinical Affirm ations are still valid from ( per conversation with Dr Enriquez). Also spo ke with leadership regarding process. PLAN: Patient will be transferred via campus Police. Nurse will need to call re port per [facility]. Soraida Durant [facility] [employer] [phone] office [phone] cell * Asiya Estrada, SOIL SORT WORKER - 10/26/2018 2:52 PM CDT CLS Progress Note Critical Care note Date of Service: 10/26/2018 14:52 Chief Complaint: Respiratory failure SUBJECTIVE: awake and alert and communicating, Denies chest pain or sob, Denies fever or chills, Has productive cough with greenish color PHYSICAL EXAM: Vitals: 10/26/18 0500 10/26/18 0600 10/26/18 0700 10/26/18 1100 BP: 114/59 102/56 Pulse: 75 87 Resp: Temp: 37.2 C (99 F) 37.1 C (98.8 F) TempSrc: Oral Oral SpO2: 97% 95% Weight: Height: O2 Sat: SpO2 readings for the past 24 hrs: SpO2 10/22/18 0040 92 % 10/22/18 0100 97 % 10/22/18 0130 96 % 10/22/18 0135 98 % 10/22/18 0146 98 % 10/22/18 0200 98 % 10/22/18 0230 99 % 10/22/18 0245 100 % 10/22/18 0300 97 % 10/22/18 0333 97 % 10/22/18 0400 98 % 10/22/18 0500 97 % 10/22/18 0600 98 % 10/22/18 0700 98 % 10/22/18 0800 97 % 10/22/18 0828 96 % 10/22/18 1000 96 % No intake or output data in the 24 hours ending 10/26/18 1452 General: alert and oriented x 3. HEENT: pupils equal, reactive to light Lungs: clear to auscultation bilaterally, no crackles, no wheezes, Cardio: regular rate and rhythm, no murmurs, no gallops Abdomen: soft; non-tender; non-distended; normoactive bowel sounds Extremities: no cyanosis, clubbing or edema LABS/IMAGING - reviewed, pertinent results as below: Recent Results (from the past 48 hour(s)) POCT GLUCOSE (AUTOMATED) Collection Time: 10/24/18 8:25 PM Result Value Ref Range POCT GLU 242 (H) 70 - 110 mg/dL POCT GLUCOSE (AUTOMATED) Collection Time: 10/24/18 11:43 PM Result Value Ref Range POCT GLU 241 (H) 70 - 110 mg/dL POCT GLUCOSE (AUTOMATED) Collection Time: 10/25/18 8:22 AM Result Value Ref Range POCT GLU 29 (LL) 70 - 110 mg/dL POCT GLUCOSE (AUTOMATED) Collection Time: 10/25/18 8:24 AM Result Value Ref Range POCT GLU 187 (H) 70 - 110 mg/dL CBC WITH DIFFERENTIAL Collection Time: 10/25/18 8:27 AM Result Value Ref Range WBC 10.75 (H) 4.20 - 10.70 10*3/L RBC 3.60 (L) 4.26 - 5.52 10*6/L HGB 11.7 (L) 12.2 - 16.4 g/dL HCT 34.3 (L) 38.4 - 49.3 % MCV 95.3 81.7 - 95.6 fL MCH 32.5 26.1 - 32.7 pg MCHC 34.1 31.2 - 35.0 g/dL RDW-SD 44.9 38.5 - 51.6 fL RDW-CV 12.9 12.1 - 15.4 % PLT 218 150 - 328 10*3/L MPV 12.1 9.8 - 13.0 fL NRBC/100 WBC 0.0 0.0 - 10.0 /100 WBCs NRBC x10^3 <0.01 10*3/L GRAN MAT (NEUT) % 57.2 % IMM GRAN % 0.70 % LYMPH % 27.2 % MONO % 11.5 % EOS % 3.1 % BASO % 0.3 % GRAN MAT x10^3(ANC) 6.15 1.99 - 6.95 10*3/uL IMM GRAN x10^3 0.08 (H) 0.00 - 0.06 10*3/uL LYMPH x10^3 2.92 1.09 - 3.23 10*3/uL MONO x10^3 1.24 (H) 0.36 - 1.02 10*3/uL EOS x10^3 0.33 0.06 - 0.53 10*3/uL BASO x10^3 0.03 0.01 - 0.09 10*3/uL POCT GLUCOSE (AUTOMATED) Collection Time: 10/25/18 12:16 PM Result Value Ref Range POCT GLU 264 (H) 70 - 110 mg/dL POCT GLUCOSE (AUTOMATED) Collection Time: 10/25/18 5:09 PM Result Value Ref Range POCT GLU 225 (H) 70 - 110 mg/dL POCT GLUCOSE (AUTOMATED) Collection Time: 10/25/18 8:15 PM Result Value Ref Range POCT GLU 242 (H) 70 - 110 mg/dL BLOOD CULTURE SCREEN Collection Time: 10/26/18 12:22 AM Result Value Ref Range Blood Culture-Aerobic Culture In Progress No growth Blood Culture-Anaerobic Culture In Progress No growth BLOOD CULTURE SCREEN Collection Time: 10/26/18 12:22 AM Result Value Ref Range Blood Culture-Aerobic Culture In Progress No growth Blood Culture-Anaerobic Culture In Progress No growth BASIC METABOLIC PANEL (NA, K, CL, CO2, GLUCOSE, BUN, CREATININE, CA) Collection Time: 10/26/18 5:17 AM Result Value Ref Range NA 134 (L) 135 - 145 mmol/L K 4.0 3.5 - 5.0 mmol/L CL 106 98 - 108 mmol/L CO2 TOTAL 23 23 - 31 mmol/L AGAP 5 2 - 16 BUN 8 7 - 23 mg/dL GLUCOSE 195 (H) 70 - 110 mg/dL CREATININE 0.75 0.60 - 1.25 mg/dL CALCIUM 8.6 8.6 - 10.6 mg/dL eGFR Calculation (Non-) 116.6 mL/min/1.73m2 eGFR Calculation () 141.3 mL/min/1.73m2 CBC WITH DIFFERENTIAL Collection Time: 10/26/18 5:17 AM Result Value Ref Range WBC 10.14 4.20 - 10.70 10*3/L RBC 3.75 (L) 4.26 - 5.52 10*6/L HGB 11.8 (L) 12.2 - 16.4 g/dL HCT 35.2 (L) 38.4 - 49.3 % MCV 93.9 81.7 - 95.6 fL MCH 31.5 26.1 - 32.7 pg MCHC 33.5 31.2 - 35.0 g/dL RDW-SD 42.5 38.5 - 51.6 fL RDW-CV 12.2 12.1 - 15.4 % PLT 193 150 - 328 10*3/L MPV 10.8 9.8 - 13.0 fL NRBC/100 WBC 0.0 0.0 - 10.0 /100 WBCs NRBC x10^3 <0.01 10*3/L GRAN MAT (NEUT) % 53.3 % IMM GRAN % 0.90 % LYMPH % 26.0 % MONO % 15.8 % EOS % 3.5 % BASO % 0.5 % GRAN MAT x10^3(ANC) 5.41 1.99 - 6.95 10*3/uL IMM GRAN x10^3 0.09 (H) 0.00 - 0.06 10*3/uL LYMPH x10^3 2.64 1.09 - 3.23 10*3/uL MONO x10^3 1.60 (H) 0.36 - 1.02 10*3/uL EOS x10^3 0.35 0.06 - 0.53 10*3/uL BASO x10^3 0.05 0.01 - 0.09 10*3/uL Lactic Acid Whole Blood Collection Time: 10/26/18 8:54 AM Result Value Ref Range LACTIC ACID 0.92 0.50 - 2.20 mmol/L POCT GLUCOSE (AUTOMATED) Collection Time: 10/26/18 8:55 AM Result Value Ref Range POCT GLU 161 (H) 70 - 110 mg/dL URINALYSIS Collection Time: 10/26/18 11:13 AM Result Value Ref Range APPEARANCE Hazy (A) Clear COLOR Yellow Yellow PH 6.0 4.8 - 8.0 SP GRAVITY 1.010 1.003 - 1.030 GLU U QUAL 500 mg/dL (A) Normal BLOOD Negative Negative KETONES Negative Negative PROTEIN Negative Negative UROBILIN Normal Normal BILIRUBIN Negative Negative NITRITE Negative Negative LEUK KYLE Negative Negative RBC/HPF 1 0 - 3 HPF WBC/HPF 1 0 - 5 HPF BACTERIA Negative Negative AMORPHOUS Rare Rare HPF SQ EPITH <1 <=2 HPF POCT GLUCOSE (AUTOMATED) Collection Time: 10/26/18 1:32 PM Result Value Ref Range POCT GLU 264 (H) 70 - 110 mg/dL Xr Chest 2 Vw Result Date: 10/26/2018 Worsening of bilateral ill-defined streaky and patchy hazy parenchymal opacities , may represent multifocal infection in the proper clinical setting. If radiogra phic findings correlate with worsening clinical condition and suspicion for mult ifocal infection, consider further evaluation with CT chest with contrast. CURRENT MEDICATIONS - reviewed. Current Facility-Administered Medications Medication Dose Route Frequency Last Rate Last Dose acetaminophen (TYLENOL) tablet 650 mg 650 mg Oral Q4HPRN levoFLOXacin (LEVAQUIN) tablet 750 mg 750 mg Oral Q24H ABX atenolol (TENORMIN) tablet 50 mg 50 mg Oral DAILY 50 mg at 10/26/18 0824 dextrose 50 % in water (D50W) injection 25 mL 25 mL Slow IV Push PRN enoxaparin (LOVENOX) injection 40 mg 40 mg Subcutaneous DAILY 40 mg at 08 glucagon (GLUCAGEN DIAGNOSTIC KIT) injection 1 mg 1 mg Intramuscular PRN lisinopril (PRINIVIL,ZESTRIL) tablet 10 mg 10 mg Oral DAILY 10 mg at 10/14 06/01 08 simvastatin (ZOCOR) tablet 40 mg 40 mg Oral QHS 40 mg at 10/25/182036 Sliding Scale Insulin-Regular + Fsbg Testing Subcutaneous AC+HS Stopped at 10/25/18 1130 ASSESSMENT/PLAN Sascha David is a 38 year old male admitted to the hospital with: 1-s/p Acute hypoxic respiratory failure, Resolved 2-toxic/metabolic acute encephalopathy , secondary to drug overdose 3-Medication overdose 4-Suicidal attempt , pending psyc evaluation 5-Uncontrolled DM Type I . Hyperglycemia but no DKA 6. Fever. Possible pna. Started on abx 7. Possible aspiration pneumonia. Patient with fever and productive cough. CXR r eviewed, will start him on abx. Plan Continue abx, Started on nebs Patient can be discharge tomorrow to inpatient psyc if fever free CRISTOBAL Clarke [phone] Associated attestation - Johana Tsai MD - 10/27/2018 7:04 AM CDT I personally examined the patient on 10/26/2018 and agree with Asiya Estrada NP's note as written . I actively participated in the decision-making process. * Soraida Durant SW - 10/26/2018 1:56 PM CDT Facility will hold bed for patient. F/u in the am SOCIAL WORK NOTE Patient accepted at [facility]. Pending medical readiness. Soraida Durant [facility] [employer] [phone] office [phone] cell * Soraida Durant SW - 10/26/2018 9:49 AM CDT SOCIAL WORK NOTE Patient will need psychiatric inpatient. Called PPC this am, will need clinical affirmation completed. Soraida Durant [employer] [phone] office [phone] cell * Trino Recio MD - 10/25/2018 5:04 PM CDT CLINICAL AFFIRMATION OF MENTAL HEALTH STATUS FOR EMERGENCY APPREHENSION BY LAW E NFORCEMENT Pursuant to [place] Health & Safety Code, Chapter 573, Section 573.001(c)(1), the undersigned meteorology faculty member has made a clinical determination that the individual in question suffers from a mental health condition and poses a danger to self or others. Prior to requesting law enforcement intervention to protect the following indivi dual and/or others from imminent bodily harm, I personally witnessed or confirme d, attest in writing and affirm to these facts with regard to the mental health status of the individual in question. Individual to be apprehended: Sascha David is a 38 year old male Facts witnessed/confirmed: The patient is a danger to self. He has stated an in tent to end his life and has attempted suicide by overdose on medications. This is his second suicide attempt in two months. Attestation made by: Trino Recio MD 10/25/2018 5:05 PM (Electronic Signature) Arrangements for Transport to Mental Health Facility to be completed by W kira or [facility]. * Tate Garcia SW - 10/25/2018 2:45 PM CDT Care Management Social Functional Assessment Patient Name: Sascha David Age: [age] year old Sex: male 20N Previous admit date: N/A Current diagnosis and co-morbidities: overdose Readmission Questions: Was patient discharged from any acute care hospital within the last 30 days: No Social Functional Assessment: Primary language spoken/preferred: Kittitian Mental Status: Alert & Oriented to Person,Place & Time Information given by: Self Patient's support system: Parent Name and number of support system: ALVERTO DAVID MOTHER [phone] Primary Head Mechanic: Self MPOA: No Living Arrangement: Apartment Address of living arrangement : PT NOT ABLE TO PROVIDE NEW ADDRESS - HE STATES H E JUST MOVED IN WITH FRIEND ,SORAIDA IN [place] AT [facility] [address] Persons living in home: Self;Other Barriers to returning home: Declining function;Other Other barriers to returning home: SI/SA Baseline functional status- ambulation: Independent Functional status-baseline personal care: Independent Baseline functional status- driving: Independent Baseline functional status- grocery shopping: Independent Functional status-baseline housekeeping: Independent Functional status-baseline meal prep: Independent Current functional status same as prior: No Current functional status- ambulation: Requires minimal to moderate assistance Current functional status- personal care: Requires minimal to moderate assistanc e Current functional status- driving: Dependent Current functional status- grocery shopping: Requires minimal to moderate assist ance Current functional status-house keeping: Requires minimal to moderate assistance Current functional status- meal preparation: Requires minimal to moderate assist ance Do you have a PCP?: No Home Health Care Agency: No Provider Services: No DME Company: No Equipment: None Hemodialysis: No Funding Resources: Medicare Replacement Medicare Replacement name and information: [facility] Prescription coverage plan: Medicare Part D Anticipated services prior to disharge: Continue Medical Eval;Psych Eval Expected mode of discharge transportation: Ambulance;Other Additional info required for discharge planning: Pending medical evaluation;Othe r Other: PSYCH CONSULT Recommended discharge plan: New placement Alcohol Use Screening (AUDIT-C) How often do you have a drink containing alcohol?: Never SCORE: 0 Did patient elect to have resources provided: No Actions taken: Gave list of resources List resources provided: [facility];Other (see comment) Role of Care Management explained. * Asiya Estrada FNP - 10/25/2018 11:20 AM CDT CLS Progress Note Critical Care note Date of Service: 10/25/2018 11:20 Chief Complaint: Respiratory failure SUBJECTIVE: awake and alert and communicating, Denies chest pain or sob, Denies fever or chills, PHYSICAL EXAM: Vitals: 10/25/18 0232 10/25/18 0515 10/25/18 0615 10/25/18 0814 BP: 125/66 132/62 115/60 Pulse: 83 79 Resp: 21 (!) 53 25 18 Temp: 36.9 C (98.4 F) TempSrc: Axillary SpO2: 92% (!) 88% 91% 95% Weight: Height: O2 Sat: SpO2 readings for the past 24 hrs: SpO2 10/22/18 0040 92 % 10/22/18 0100 97 % 10/22/18 0130 96 % 10/22/18 0135 98 % 10/22/18 0146 98 % 10/22/18 0200 98 % 10/22/18 0230 99 % 10/22/18 0245 100 % 10/22/18 0300 97 % 10/22/18 0333 97 % 10/22/18 0400 98 % 10/22/18 0500 97 % 10/22/18 0600 98 % 10/22/18 0700 98 % 10/22/18 0800 97 % 10/22/18 0828 96 % 10/22/18 1000 96 % Intake/Output Summary (Last 24 hours) at 10/25/2018 1120 Last data filed at 10/25/2018 0650 Gross per 24 hour Intake Output 3355 ml Net -3355 ml General: alert and oriented x 3. HEENT: pupils equal, reactive to light Lungs: clear to auscultation bilaterally, no crackles, no wheezes, Cardio: regular rate and rhythm, no murmurs, no gallops Abdomen: soft; non-tender; non-distended; normoactive bowel sounds Extremities: no cyanosis, clubbing or edema LABS/IMAGING - reviewed, pertinent results as below: Recent Results (from the past 48 hour(s)) POCT GLUCOSE (AUTOMATED) Collection Time: 10/23/18 4:20 PM Result Value Ref Range POCT GLU 153 (H) 70 - 110 mg/dL POCT GLUCOSE (AUTOMATED) Collection Time: 10/23/18 8:30 PM Result Value Ref Range POCT GLU 185 (H) 70 - 110 mg/dL BASIC METABOLIC PANEL (NA, K, CL, CO2, GLUCOSE, BUN, CREATININE, CA) Collection Time: 10/24/18 4:41 AM Result Value Ref Range NA 139 135 - 145 mmol/L K 3.9 3.5 - 5.0 mmol/L CL 109 (H) 98 - 108 mmol/L CO2 TOTAL 24 23 - 31 mmol/L AGAP 6 2 - 16 BUN 9 7 - 23 mg/dL GLUCOSE 147 (H) 70 - 110 mg/dL CREATININE 0.77 0.60 - 1.25 mg/dL CALCIUM 7.8 (L) 8.6 - 10.6 mg/dL eGFR Calculation (Non-) 113.1 mL/min/1.73m2 eGFR Calculation () 137.0 mL/min/1.73m2 CBC WITH DIFFERENTIAL Collection Time: 10/24/18 4:41 AM Result Value Ref Range WBC 9.15 4.20 - 10.70 10*3/L RBC 3.51 (L) 4.26 - 5.52 10*6/L HGB 11.1 (L) 12.2 - 16.4 g/dL HCT 33.5 (L) 38.4 - 49.3 % MCV 95.4 81.7 - 95.6 fL MCH 31.6 26.1 - 32.7 pg MCHC 33.1 31.2 - 35.0 g/dL RDW-SD 46.2 38.5 - 51.6 fL RDW-CV 13.2 12.1 - 15.4 % PLT 163 150 - 328 10*3/L MPV 11.2 9.8 - 13.0 fL NRBC/100 WBC 0.0 0.0 - 10.0 /100 WBCs NRBC x10^3 <0.01 10*3/L GRAN MAT (NEUT) % 55.8 % IMM GRAN % 0.70 % LYMPH % 31.0 % MONO % 9.4 % EOS % 3.0 % BASO % 0.1 % GRAN MAT x10^3(ANC) 5.11 1.99 - 6.95 10*3/uL IMM GRAN x10^3 0.06 0.00 - 0.06 10*3/uL LYMPH x10^3 2.84 1.09 - 3.23 10*3/uL MONO x10^3 0.86 0.36 - 1.02 10*3/uL EOS x10^3 0.27 0.06 - 0.53 10*3/uL BASO x10^3 <0.03 0.01 - 0.09 10*3/uL POCT GLUCOSE (AUTOMATED) Collection Time: 10/24/18 7:58 AM Result Value Ref Range POCT GLU 138 (H) 70 - 110 mg/dL POCT GLUCOSE (AUTOMATED) Collection Time: 10/24/18 11:22 AM Result Value Ref Range POCT GLU 232 (H) 70 - 110 mg/dL POCT GLUCOSE (AUTOMATED) Collection Time: 10/24/18 8:25 PM Result Value Ref Range POCT GLU 242 (H) 70 - 110 mg/dL POCT GLUCOSE (AUTOMATED) Collection Time: 10/24/18 11:43 PM Result Value Ref Range POCT GLU 241 (H) 70 - 110 mg/dL POCT GLUCOSE (AUTOMATED) Collection Time: 10/25/18 8:22 AM Result Value Ref Range POCT GLU 29 (LL) 70 - 110 mg/dL POCT GLUCOSE (AUTOMATED) Collection Time: 10/25/18 8:24 AM Result Value Ref Range POCT GLU 187 (H) 70 - 110 mg/dL CBC WITH DIFFERENTIAL Collection Time: 10/25/18 8:27 AM Result Value Ref Range WBC 10.75 (H) 4.20 - 10.70 10*3/L RBC 3.60 (L) 4.26 - 5.52 10*6/L HGB 11.7 (L) 12.2 - 16.4 g/dL HCT 34.3 (L) 38.4 - 49.3 % MCV 95.3 81.7 - 95.6 fL MCH 32.5 26.1 - 32.7 pg MCHC 34.1 31.2 - 35.0 g/dL RDW-SD 44.9 38.5 - 51.6 fL RDW-CV 12.9 12.1 - 15.4 % PLT 218 150 - 328 10*3/L MPV 12.1 9.8 - 13.0 fL NRBC/100 WBC 0.0 0.0 - 10.0 /100 WBCs NRBC x10^3 <0.01 10*3/L GRAN MAT (NEUT) % 57.2 % IMM GRAN % 0.70 % LYMPH % 27.2 % MONO % 11.5 % EOS % 3.1 % BASO % 0.3 % GRAN MAT x10^3(ANC) 6.15 1.99 - 6.95 10*3/uL IMM GRAN x10^3 0.08 (H) 0.00 - 0.06 10*3/uL LYMPH x10^3 2.92 1.09 - 3.23 10*3/uL MONO x10^3 1.24 (H) 0.36 - 1.02 10*3/uL EOS x10^3 0.33 0.06 - 0.53 10*3/uL BASO x10^3 0.03 0.01 - 0.09 10*3/uL No final results containing an impression from the past 48 hours were found. CURRENT MEDICATIONS - reviewed. Current Facility-Administered Medications Medication Dose Route Frequency Last Rate Last Dose atenolol (TENORMIN) tablet 50 mg 50 mg Oral DAILY 50 mg at 10/25/18 0838 dextrose 50 % in water (D50W) injection 25 mL 25 mL Slow IV Push PRN enoxaparin (LOVENOX) injection 40 mg 40 mg Subcutaneous DAILY 40 mg at 0838 glucagon (GLUCAGEN DIAGNOSTIC KIT) injection 1 mg 1 mg Intramuscular PRN lisinopril (PRINIVIL,ZESTRIL) tablet 10 mg 10 mg Oral DAILY 10 mg at 10/14 05/04 0838 NaCl 0.9% (NS) IV infusion 1,000 mL 1,000 mL IV Infusion CONTINUOUS 100 mL/ hr at 10/23/18 0530 1,000 mL at 10/23/18 0530 simvastatin (ZOCOR) tablet 40 mg 40 mg Oral QHS 40 mg at 10/24/182030 Sliding Scale Insulin-Regular + Fsbg Testing Subcutaneous AC+HS 1 Units at 10/25/18 0838 ASSESSMENT/PLAN Sascha David is a 38 year old male admitted to the hospital with: 1-s/p Acute hypoxic respiratory failure, Resolved 2-toxic/metabolic acute encephalopathy , secondary to drug overdose 3-Medication overdose 4-Suicidal attempt , pending psyc evaluation 5-Uncontrolled DM Type I . Hyperglycemia but no DKA Plan Transfer to floor D/c ramsey Diet Pending Psych consult Blood sugar management CRISTOBAL Clarke [phone] Associated attestation - Johana Tsai MD - 10/25/2018 3:40 PM CDT I personally examined the patient on 10/25/2018 and agree with Asiya Estrada NP's note as written . I actively participated in the decision-making process. * Semaj Kat MD - 10/24/2018 12:15 PM CDT CLS Progress Note Date of Service: 10/24/2018 12:15 Chief Complaint: Suicidal attempt SUBJECTIVE and ROS general: no fever CV: no chest pain Respiratory: no shortness of breath GI: no abdominal pain : no urinary retention Skin: no itching robert PHYSICAL EXAM: Vitals: 10/24/18 0900 10/24/18 1000 10/24/18 1100 10/24/18 1200 BP: 106/45 106/53 102/53 Pulse: 82 74 69 71 Resp: 27 (!) 51 23 19 Temp: 36.9 C (98.4 F) TempSrc: Axillary SpO2: 91% 92% 94% 94% Weight: Height: O2 Sat: SpO2 readings for the past 24 hrs: SpO2 10/23/18 1400 95 % 10/23/18 1620 99 % 10/23/18 1800 96 % 10/23/18 2000 92 % 10/23/18 2100 94 % 10/23/18 2200 91 % 10/23/18 2300 93 % 10/24/18 0000 90 % 10/24/18 0100 93 % 10/24/18 0200 91 % 10/24/18 0300 92 % 10/24/18 0400 91 % 10/24/18 0500 92 % 10/24/18 0600 90 % 10/24/18 0800 95 % 10/24/18 0900 91 % 10/24/18 1000 92 % 10/24/18 1100 94 % 10/24/18 1200 94 % Intake/Output Summary (Last 24 hours) at 10/24/2018 1215 Last data filed at 10/24/2018 1200 Gross per 24 hour Intake 1800 ml Output 2705 ml Net -905 ml General: alert and oriented; no apparent distress, no confusion HEENT: pupils equal, round; extraocular movements intact; oropharynx clear; mois t mucous membranes Lungs: clear to auscultation bilaterally, no crackles, no wheezes, cough is stro ng and effective Cardio: regular rate and rhythm, no murmurs, no gallops Abdomen: soft; non-tender; non-distended; normoactive bowel sounds Extremities: no cyanosis, clubbing or edema, no deformities LABS/IMAGING - reviewed, pertinent results as below: Recent Results (from the past 48 hour(s)) POCT GLUCOSE (AUTOMATED) Collection Time: 10/22/18 4:35 PM Result Value Ref Range POCT GLU 178 (H) 70 - 110 mg/dL POCT GLUCOSE (AUTOMATED) Collection Time: 10/22/18 8:56 PM Result Value Ref Range POCT GLU 162 (H) 70 - 110 mg/dL BASIC METABOLIC PANEL (NA, K, CL, CO2, GLUCOSE, BUN, CREATININE, CA) Collection Time: 10/22/18 11:02 PM Result Value Ref Range NA 139 135 - 145 mmol/L K 3.9 3.5 - 5.0 mmol/L CL 107 98 - 108 mmol/L CO2 TOTAL 26 23 - 31 mmol/L AGAP 6 2 - 16 BUN 13 7 - 23 mg/dL GLUCOSE 180 (H) 70 - 110 mg/dL CREATININE 1.16 0.60 - 1.25 mg/dL CALCIUM 8.5 (L) 8.6 - 10.6 mg/dL eGFR Calculation (Non-) 70.5 mL/min/1.73m2 eGFR Calculation () 85.4 mL/min/1.73m2 MAGNESIUM Collection Time: 10/22/18 11:02 PM Result Value Ref Range MAGNESIUM 1.6 (L) 1.7 - 2.4 mg/dL CBC WITH DIFFERENTIAL Collection Time: 10/22/18 11:02 PM Result Value Ref Range WBC 10.90 (H) 4.20 - 10.70 10*3/L RBC 3.98 (L) 4.26 - 5.52 10*6/L HGB 12.8 12.2 - 16.4 g/dL HCT 38.4 38.4 - 49.3 % MCV 96.5 (H) 81.7 - 95.6 fL MCH 32.2 26.1 - 32.7 pg MCHC 33.3 31.2 - 35.0 g/dL RDW-SD 47.8 38.5 - 51.6 fL RDW-CV 13.5 12.1 - 15.4 % PLT 198 150 - 328 10*3/L MPV 10.5 9.8 - 13.0 fL NRBC/100 WBC 0.2 0.0 - 10.0 /100 WBCs NRBC x10^3 0.02 10*3/L GRAN MAT (NEUT) % 49.8 % IMM GRAN % 0.60 % LYMPH % 34.7 % MONO % 12.9 % EOS % 1.8 % BASO % 0.2 % GRAN MAT x10^3(ANC) 5.42 1.99 - 6.95 10*3/uL IMM GRAN x10^3 0.07 (H) 0.00 - 0.06 10*3/uL LYMPH x10^3 3.78 (H) 1.09 - 3.23 10*3/uL MONO x10^3 1.41 (H) 0.36 - 1.02 10*3/uL EOS x10^3 0.20 0.06 - 0.53 10*3/uL BASO x10^3 <0.03 0.01 - 0.09 10*3/uL POCT GLUCOSE (AUTOMATED) Collection Time: 10/23/18 8:40 AM Result Value Ref Range POCT GLU 176 (H) 70 - 110 mg/dL POCT GLUCOSE (AUTOMATED) Collection Time: 10/23/18 11:12 AM Result Value Ref Range POCT GLU 178 (H) 70 - 110 mg/dL POCT GLUCOSE (AUTOMATED) Collection Time: 10/23/18 4:20 PM Result Value Ref Range POCT GLU 153 (H) 70 - 110 mg/dL POCT GLUCOSE (AUTOMATED) Collection Time: 10/23/18 8:30 PM Result Value Ref Range POCT GLU 185 (H) 70 - 110 mg/dL BASIC METABOLIC PANEL (NA, K, CL, CO2, GLUCOSE, BUN, CREATININE, CA) Collection Time: 10/24/18 4:41 AM Result Value Ref Range NA 139 135 - 145 mmol/L K 3.9 3.5 - 5.0 mmol/L CL 109 (H) 98 - 108 mmol/L CO2 TOTAL 24 23 - 31 mmol/L AGAP 6 2 - 16 BUN 9 7 - 23 mg/dL GLUCOSE 147 (H) 70 - 110 mg/dL CREATININE 0.77 0.60 - 1.25 mg/dL CALCIUM 7.8 (L) 8.6 - 10.6 mg/dL eGFR Calculation (Non-) 113.1 mL/min/1.73m2 eGFR Calculation () 137.0 mL/min/1.73m2 CBC WITH DIFFERENTIAL Collection Time: 10/24/18 4:41 AM Result Value Ref Range WBC 9.15 4.20 - 10.70 10*3/L RBC 3.51 (L) 4.26 - 5.52 10*6/L HGB 11.1 (L) 12.2 - 16.4 g/dL HCT 33.5 (L) 38.4 - 49.3 % MCV 95.4 81.7 - 95.6 fL MCH 31.6 26.1 - 32.7 pg MCHC 33.1 31.2 - 35.0 g/dL RDW-SD 46.2 38.5 - 51.6 fL RDW-CV 13.2 12.1 - 15.4 % PLT 163 150 - 328 10*3/L MPV 11.2 9.8 - 13.0 fL NRBC/100 WBC 0.0 0.0 - 10.0 /100 WBCs NRBC x10^3 <0.01 10*3/L GRAN MAT (NEUT) % 55.8 % IMM GRAN % 0.70 % LYMPH % 31.0 % MONO % 9.4 % EOS % 3.0 % BASO % 0.1 % GRAN MAT x10^3(ANC) 5.11 1.99 - 6.95 10*3/uL IMM GRAN x10^3 0.06 0.00 - 0.06 10*3/uL LYMPH x10^3 2.84 1.09 - 3.23 10*3/uL MONO x10^3 0.86 0.36 - 1.02 10*3/uL EOS x10^3 0.27 0.06 - 0.53 10*3/uL BASO x10^3 <0.03 0.01 - 0.09 10*3/uL POCT GLUCOSE (AUTOMATED) Collection Time: 10/24/18 7:58 AM Result Value Ref Range POCT GLU 138 (H) 70 - 110 mg/dL POCT GLUCOSE (AUTOMATED) Collection Time: 10/24/18 11:22 AM Result Value Ref Range POCT GLU 232 (H) 70 - 110 mg/dL Xr Chest 1 Vw Result Date: 10/23/2018 FINDINGS/IMPRESSION: An endotracheal tube is not visualized. The lungs are mildl y hypoinflated. Bibasilar opacities are likely due to subsegmental atelectasis. A small left pleural effusion is suspected. The heart is normal in size. CURRENT MEDICATIONS - reviewed. Current Facility-Administered Medications Medication Dose Route Frequency Last Rate Last Dose atenolol (TENORMIN) tablet 50 mg 50 mg Oral DAILY 50 mg at 10/24/18 0728 dextrose 50 % in water (D50W) injection 25 mL 25 mL Slow IV Push PRN enoxaparin (LOVENOX) injection 40 mg 40 mg Subcutaneous DAILY 40 mg at 0729 glucagon (GLUCAGEN DIAGNOSTIC KIT) injection 1 mg 1 mg Intramuscular PRN lisinopril (PRINIVIL,ZESTRIL) tablet 10 mg 10 mg Oral DAILY 10 mg at 10/14 04/03 0728 NaCl 0.9% (NS) IV infusion 1,000 mL 1,000 mL IV Infusion CONTINUOUS 100 mL/ hr at 10/23/18 0530 1,000 mL at 10/23/18 0530 simvastatin (ZOCOR) tablet 40 mg 40 mg Oral QHS 40 mg at 10/23/182031 Sliding Scale Insulin-Regular + Fsbg Testing Subcutaneous AC+HS 2 Units at 10/24/18 1127 ASSESSMENT/PLAN Sascha David is a 38 year old male admitted to the hospital with: Suicidal attempt and metabolic encephalopathy resolved Acute hypoxic respiratory failure resolved DM type I Depression Dehydration PLAN: Psych consult is pending Extubated to DC and sat is OK Suicidal precaution DVT prophylaxis BS 100-180 on insulin NO fever and no obvious infection and no need for ABX Semaj Kat MD [phone] * Johana Tsai MD - 10/23/2018 10:12 AM CDT CLS Progress Note Critical Care note Date of Service: 10/23/2018 10:12 Chief Complaint: Respiratory failure SUBJECTIVE: We stopped his sedation and we managed to wean him off vent this am. He is still sleepy. PHYSICAL EXAM: Vitals: 10/23/18 0715 10/23/18 0750 10/23/18 0800 10/23/18 0900 BP: 113/59 109/62 Pulse: 83 88 87 Resp: 14 18 21 21 Temp: TempSrc: SpO2: 98% 95% 95% 94% Weight: Height: O2 Sat: SpO2 readings for the past 24 hrs: SpO2 10/22/18 0040 92 % 10/22/18 0100 97 % 10/22/18 0130 96 % 10/22/18 0135 98 % 10/22/18 0146 98 % 10/22/18 0200 98 % 10/22/18 0230 99 % 10/22/18 0245 100 % 10/22/18 0300 97 % 10/22/18 0333 97 % 10/22/18 0400 98 % 10/22/18 0500 97 % 10/22/18 0600 98 % 10/22/18 0700 98 % 10/22/18 0800 97 % 10/22/18 0828 96 % 10/22/18 1000 96 % Intake/Output Summary (Last 24 hours) at 10/23/2018 1012 Last data filed at 10/23/2018 0843 Gross per 24 hour Intake 3577 ml Output 624 ml Net 2953 ml General: Sedated on the ventilator HEENT: pupils equal, Lungs: clear to auscultation bilaterally, no crackles, no wheezes, Cardio: regular rate and rhythm, no murmurs, no gallops Abdomen: soft; non-tender; non-distended; normoactive bowel sounds Extremities: no cyanosis, clubbing or edema LABS/IMAGING - reviewed, pertinent results as below: Recent Results (from the past 48 hour(s)) PROTHROMBIN TIME / INR Collection Time: 10/22/18 12:49 AM Result Value Ref Range PROTIME PATIENT 10.3 10.1 - 12.6 Seconds INR 0.9 CBC WITH DIFFERENTIAL Collection Time: 10/22/18 12:49 AM Result Value Ref Range WBC 9.15 4.20 - 10.70 10*3/L RBC 4.81 4.26 - 5.52 10*6/L HGB 15.6 12.2 - 16.4 g/dL HCT 45.6 38.4 - 49.3 % MCV 94.8 81.7 - 95.6 fL MCH 32.4 26.1 - 32.7 pg MCHC 34.2 31.2 - 35.0 g/dL RDW-SD 44.1 38.5 - 51.6 fL RDW-CV 12.9 12.1 - 15.4 % PLT 268 150 - 328 10*3/L MPV 11.1 9.8 - 13.0 fL NRBC/100 WBC 0.0 0.0 - 10.0 /100 WBCs NRBC x10^3 <0.01 10*3/L GRAN MAT (NEUT) % 45.4 % IMM GRAN % 1.00 % LYMPH % 40.3 % MONO % 12.1 % EOS % 1.0 % BASO % 0.2 % GRAN MAT x10^3(ANC) 4.15 1.99 - 6.95 10*3/uL IMM GRAN x10^3 0.09 (H) 0.00 - 0.06 10*3/uL LYMPH x10^3 3.69 (H) 1.09 - 3.23 10*3/uL MONO x10^3 1.11 (H) 0.36 - 1.02 10*3/uL EOS x10^3 0.09 0.06 - 0.53 10*3/uL BASO x10^3 <0.03 0.01 - 0.09 10*3/uL COMP. METABOLIC PANEL (39655) Collection Time: 10/22/18 12:50 AM Result Value Ref Range NA 139 135 - 145 mmol/L K 4.1 3.5 - 5.0 mmol/L CL 102 98 - 108 mmol/L CO2 TOTAL 20 (L) 23 - 31 mmol/L AGAP 17 (H) 2 - 16 BUN 8 7 - 23 mg/dL GLUCOSE 373 (H) 70 - 110 mg/dL CREATININE 1.19 0.60 - 1.25 mg/dL TOTAL BILI 0.4 0.1 - 1.1 mg/dL CALCIUM 10.7 (H) 8.6 - 10.6 mg/dL T PROTEIN 7.5 6.3 - 8.2 g/dL ALBUMIN 4.4 3.5 - 5.0 g/dL ALK PHOS 65 34 - 122 U/L ALT(SGPT) 49 9 - 51 U/L AST(SGOT) 46 (H) 13 - 40 U/L eGFR Calculation (Non-) 68.4 mL/min/1.73m2 eGFR Calculation () 82.9 mL/min/1.73m2 TROPONIN I Collection Time: 10/22/18 12:50 AM Result Value Ref Range TROPONIN I 0.000 <=0.034 ng/mL VALPROIC ACID, FREE Collection Time: 10/22/18 12:50 AM Result Value Ref Range Valproic Acid, Free 4.9 4.0 - 15.0 ug/mL ETHANOL Collection Time: 10/22/18 12:50 AM Result Value Ref Range ALCOHOL 90 mg/dL ACETAMINOPHEN Collection Time: 10/22/18 12:50 AM Result Value Ref Range ACETAMINOP <10.0 (L) 10.0 - 30.0 ug/mL SALICYLATE Collection Time: 10/22/18 12:50 AM Result Value Ref Range SALICYLATE <10 mg/L MAGNESIUM Collection Time: 10/22/18 12:50 AM Result Value Ref Range MAGNESIUM 1.9 1.7 - 2.4 mg/dL VALPROIC ACID, TOTAL Collection Time: 10/22/18 12:50 AM Result Value Ref Range VALPROIC A 61 50 - 100 ug/mL POCT GLUCOSE (AUTOMATED) Collection Time: 10/22/18 12:59 AM Result Value Ref Range POCT GLU 424 (H) 70 - 110 mg/dL DRUG SCREEN ER (URINE) Collection Time: 10/22/18 1:03 AM Result Value Ref Range AMPHET Negative Negative Cocaine Metabolite Negative Negative OPIATES Negative Negative THC Negative Negative URINALYSIS Collection Time: 10/22/18 1:03 AM Result Value Ref Range APPEARANCE Clear Clear COLOR Yellow Yellow PH 8.0 4.8 - 8.0 SP GRAVITY 1.024 1.003 - 1.030 GLU U QUAL 500 mg/dL (A) Normal BLOOD Negative Negative KETONES Negative Negative PROTEIN Negative Negative UROBILIN Normal Normal BILIRUBIN Negative Negative NITRITE Negative Negative LEUK KYLE Negative Negative RBC/HPF 5 (H) 0 - 3 HPF WBC/HPF 2 0 - 5 HPF BACTERIA Negative Negative HYAL CAST 1 <=2 LPF ABG+COOX+NA+K+GLU+CA2+ Collection Time: 10/22/18 1:48 AM Result Value Ref Range PH 7.31 (L) 7.35 - 7.45 PCO2 44 35 - 45 mmHg PO2 169 (H) 80 - 100 mmHg HCO3 22 22 - 26 mEq/L BE -4.8 (L) -3.0 - 3.0 mEq/L THB 14.5 13.5 - 18.0 g/dL %O2HB 96.1 94.0 - 99.0 % %COHB ART 2.8 (H) 0.0 - 1.5 % %METHB ART 0.3 (L) 0.4 - 1.5 % VOL%O2 ART 19.9 15.0 - 23.0 % NA 140 135 - 145 mmol/L K+ 4.0 3.5 - 5.0 mmol/L AC CA IONZ 5.10 4.50 - 5.30 mg/dL GLUCOSE 334 (H) 70 - 110 mg/dL POCT GLUCOSE (AUTOMATED) Collection Time: 10/22/18 3:51 AM Result Value Ref Range POCT GLU 260 (H) 70 - 110 mg/dL GLYCOSYLATED HEMOGLOBIN (A1C) Collection Time: 10/22/18 4:17 AM Result Value Ref Range HGB A1C 7.7 (H) 4.0 - 6.0 % NGSP POCT GLUCOSE (AUTOMATED) Collection Time: 10/22/18 10:15 AM Result Value Ref Range POCT GLU 219 (H) 70 - 110 mg/dL POCT GLUCOSE (AUTOMATED) Collection Time: 10/22/18 11:56 AM Result Value Ref Range POCT GLU 243 (H) 70 - 110 mg/dL POCT GLUCOSE (AUTOMATED) Collection Time: 10/22/18 4:35 PM Result Value Ref Range POCT GLU 178 (H) 70 - 110 mg/dL POCT GLUCOSE (AUTOMATED) Collection Time: 10/22/18 8:56 PM Result Value Ref Range POCT GLU 162 (H) 70 - 110 mg/dL BASIC METABOLIC PANEL (NA, K, CL, CO2, GLUCOSE, BUN, CREATININE, CA) Collection Time: 10/22/18 11:02 PM Result Value Ref Range NA 139 135 - 145 mmol/L K 3.9 3.5 - 5.0 mmol/L CL 107 98 - 108 mmol/L CO2 TOTAL 26 23 - 31 mmol/L AGAP 6 2 - 16 BUN 13 7 - 23 mg/dL GLUCOSE 180 (H) 70 - 110 mg/dL CREATININE 1.16 0.60 - 1.25 mg/dL CALCIUM 8.5 (L) 8.6 - 10.6 mg/dL eGFR Calculation (Non-) 70.5 mL/min/1.73m2 eGFR Calculation () 85.4 mL/min/1.73m2 MAGNESIUM Collection Time: 10/22/18 11:02 PM Result Value Ref Range MAGNESIUM 1.6 (L) 1.7 - 2.4 mg/dL CBC WITH DIFFERENTIAL Collection Time: 10/22/18 11:02 PM Result Value Ref Range WBC 10.90 (H) 4.20 - 10.70 10*3/L RBC 3.98 (L) 4.26 - 5.52 10*6/L HGB 12.8 12.2 - 16.4 g/dL HCT 38.4 38.4 - 49.3 % MCV 96.5 (H) 81.7 - 95.6 fL MCH 32.2 26.1 - 32.7 pg MCHC 33.3 31.2 - 35.0 g/dL RDW-SD 47.8 38.5 - 51.6 fL RDW-CV 13.5 12.1 - 15.4 % PLT 198 150 - 328 10*3/L MPV 10.5 9.8 - 13.0 fL NRBC/100 WBC 0.2 0.0 - 10.0 /100 WBCs NRBC x10^3 0.02 10*3/L GRAN MAT (NEUT) % 49.8 % IMM GRAN % 0.60 % LYMPH % 34.7 % MONO % 12.9 % EOS % 1.8 % BASO % 0.2 % GRAN MAT x10^3(ANC) 5.42 1.99 - 6.95 10*3/uL IMM GRAN x10^3 0.07 (H) 0.00 - 0.06 10*3/uL LYMPH x10^3 3.78 (H) 1.09 - 3.23 10*3/uL MONO x10^3 1.41 (H) 0.36 - 1.02 10*3/uL EOS x10^3 0.20 0.06 - 0.53 10*3/uL BASO x10^3 <0.03 0.01 - 0.09 10*3/uL Abdominal 1 View - To Confirm Nasogastric Tube Placement. Result Date: 10/22/2018 Tip of the orogastric tube is in the stomach. Xr Chest 1 Vw Result Date: 10/23/2018 FINDINGS/IMPRESSION: An endotracheal tube is not visualized. The lungs are mildl y hypoinflated. Bibasilar opacities are likely due to subsegmental atelectasis. A small left pleural effusion is suspected. The heart is normal in size. Xr Chest 1 Vw Result Date: 10/22/2018 Impression: No radiographic evidence for acute cardiopulmonary disease. Endotrac heal tube in satisfactory position 3.7 cm above the ara. NG tube terminates i n the midesophagus. This could be advanced approximately 14 cm for placement wit hin the stomach. RL: [id number] AF: [id number] CURRENT MEDICATIONS - reviewed. Current Facility-Administered Medications Medication Dose Route Frequency Last Rate Last Dose atenolol (TENORMIN) tablet 50 mg 50 mg Oral DAILY 50 mg at 10/22/18 0900 dextrose 50 % in water (D50W) injection 25 mL 25 mL Slow IV Push PRN enoxaparin (LOVENOX) injection 40 mg 40 mg Subcutaneous DAILY 40 mg at 1000 glucagon (GLUCAGEN DIAGNOSTIC KIT) injection 1 mg 1 mg Intramuscular PRN lisinopril (PRINIVIL,ZESTRIL) tablet 10 mg 10 mg Oral DAILY 10 mg at 12/02 1001 NaCl 0.9% (NS) IV infusion 1,000 mL 1,000 mL IV Infusion CONTINUOUS 100 mL/ hr at 10/23/18 0530 1,000 mL at 10/23/18 0530 propofol injection 15 mcg/kg/min IV Infusion CONTINUOUS Stopped at 0745 simvastatin (ZOCOR) tablet 40 mg 40 mg Oral QHS 40 mg at 10/22/18 2108 Sliding Scale Insulin-Regular + Fsbg Testing Subcutaneous AC+HS Stopped at 10/22/18 1630 ASSESSMENT/PLAN Sascha David is a 38 year old male admitted to the hospital with: 1-s/p Acute hypoxic respiratory failure, weaned off vent. 2-toxic/metabolic acute encephalopathy , secondary to drug overdose 3-Medication overdose 4-Suicidal attempt , he will need psych evaluation 5-Uncontrolled DM Type I . Hyperglycemia but no DKA Plan D/c ramsey Start diet Psych consult Blood sugar management Johana Tsai MD [phone] * Johana Tsai MD - 10/22/2018 12:26 PM CDT CLS Progress Note Critical Care note Date of Service: 10/22/2018 12:26 Chief Complaint: Respiratory failure SUBJECTIVE: The patient is sedated on the ventilator. We stopped his sedation for a brief pe riod of time and he did not wake up so we put him on mild sedation and we made c hanges to his ventilator settings his NG tube was removed and a new NG tube will be placed and on suction so far. No family member showed up PHYSICAL EXAM: Vitals: 10/22/18 0700 10/22/18 0800 10/22/18 0828 10/22/18 1000 BP: 129/72 115/71 Pulse: 125 128 123 118 Resp: 14 18 15 14 Temp: 37.3 C (99.1 F) 37.5 C (99.5 F) TempSrc: SpO2: 98% 97% 96% 96% Weight: Height: O2 Sat: SpO2 readings for the past 24 hrs: SpO2 10/22/18 0040 92 % 10/22/18 0100 97 % 10/22/18 0130 96 % 10/22/18 0135 98 % 10/22/18 0146 98 % 10/22/18 0200 98 % 10/22/18 0230 99 % 10/22/18 0245 100 % 10/22/18 0300 97 % 10/22/18 0333 97 % 10/22/18 0400 98 % 10/22/18 0500 97 % 10/22/18 0600 98 % 10/22/18 0700 98 % 10/22/18 0800 97 % 10/22/18 0828 96 % 10/22/18 1000 96 % Intake/Output Summary (Last 24 hours) at 10/22/2018 1226 Last data filed at 10/22/2018 0600 Gross per 24 hour Intake 254 ml Output 450 ml Net -196 ml General: Sedated on the ventilator HEENT: pupils equal, Lungs: clear to auscultation bilaterally, no crackles, no wheezes, Cardio: regular rate and rhythm, no murmurs, no gallops Abdomen: soft; non-tender; non-distended; normoactive bowel sounds Extremities: no cyanosis, clubbing or edema LABS/IMAGING - reviewed, pertinent results as below: Recent Results (from the past 48 hour(s)) PROTHROMBIN TIME / INR Collection Time: 10/22/18 12:49 AM Result Value Ref Range PROTIME PATIENT 10.3 10.1 - 12.6 Seconds INR 0.9 CBC WITH DIFFERENTIAL Collection Time: 10/22/18 12:49 AM Result Value Ref Range WBC 9.15 4.20 - 10.70 10*3/L RBC 4.81 4.26 - 5.52 10*6/L HGB 15.6 12.2 - 16.4 g/dL HCT 45.6 38.4 - 49.3 % MCV 94.8 81.7 - 95.6 fL MCH 32.4 26.1 - 32.7 pg MCHC 34.2 31.2 - 35.0 g/dL RDW-SD 44.1 38.5 - 51.6 fL RDW-CV 12.9 12.1 - 15.4 % PLT 268 150 - 328 10*3/L MPV 11.1 9.8 - 13.0 fL NRBC/100 WBC 0.0 0.0 - 10.0 /100 WBCs NRBC x10^3 <0.01 10*3/L GRAN MAT (NEUT) % 45.4 % IMM GRAN % 1.00 % LYMPH % 40.3 % MONO % 12.1 % EOS % 1.0 % BASO % 0.2 % GRAN MAT x10^3(ANC) 4.15 1.99 - 6.95 10*3/uL IMM GRAN x10^3 0.09 (H) 0.00 - 0.06 10*3/uL LYMPH x10^3 3.69 (H) 1.09 - 3.23 10*3/uL MONO x10^3 1.11 (H) 0.36 - 1.02 10*3/uL EOS x10^3 0.09 0.06 - 0.53 10*3/uL BASO x10^3 <0.03 0.01 - 0.09 10*3/uL COMP. METABOLIC PANEL (01528) Collection Time: 10/22/18 12:50 AM Result Value Ref Range NA 139 135 - 145 mmol/L K 4.1 3.5 - 5.0 mmol/L CL 102 98 - 108 mmol/L CO2 TOTAL 20 (L) 23 - 31 mmol/L AGAP 17 (H) 2 - 16 BUN 8 7 - 23 mg/dL GLUCOSE 373 (H) 70 - 110 mg/dL CREATININE 1.19 0.60 - 1.25 mg/dL TOTAL BILI 0.4 0.1 - 1.1 mg/dL CALCIUM 10.7 (H) 8.6 - 10.6 mg/dL T PROTEIN 7.5 6.3 - 8.2 g/dL ALBUMIN 4.4 3.5 - 5.0 g/dL ALK PHOS 65 34 - 122 U/L ALT(SGPT) 49 9 - 51 U/L AST(SGOT) 46 (H) 13 - 40 U/L eGFR Calculation (Non-) 68.4 mL/min/1.73m2 eGFR Calculation () 82.9 mL/min/1.73m2 TROPONIN I Collection Time: 10/22/18 12:50 AM Result Value Ref Range TROPONIN I 0.000 <=0.034 ng/mL ETHANOL Collection Time: 10/22/18 12:50 AM Result Value Ref Range ALCOHOL 90 mg/dL ACETAMINOPHEN Collection Time: 10/22/18 12:50 AM Result Value Ref Range ACETAMINOP <10.0 (L) 10.0 - 30.0 ug/mL SALICYLATE Collection Time: 10/22/18 12:50 AM Result Value Ref Range SALICYLATE <10 mg/L MAGNESIUM Collection Time: 10/22/18 12:50 AM Result Value Ref Range MAGNESIUM 1.9 1.7 - 2.4 mg/dL VALPROIC ACID, TOTAL Collection Time: 10/22/18 12:50 AM Result Value Ref Range VALPROIC A 61 50 - 100 ug/mL POCT GLUCOSE (AUTOMATED) Collection Time: 10/22/18 12:59 AM Result Value Ref Range POCT GLU 424 (H) 70 - 110 mg/dL DRUG SCREEN ER (URINE) Collection Time: 10/22/18 1:03 AM Result Value Ref Range AMPHET Negative Negative Cocaine Metabolite Negative Negative OPIATES Negative Negative THC Negative Negative URINALYSIS Collection Time: 10/22/18 1:03 AM Result Value Ref Range APPEARANCE Clear Clear COLOR Yellow Yellow PH 8.0 4.8 - 8.0 SP GRAVITY 1.024 1.003 - 1.030 GLU U QUAL 500 mg/dL (A) Normal BLOOD Negative Negative KETONES Negative Negative PROTEIN Negative Negative UROBILIN Normal Normal BILIRUBIN Negative Negative NITRITE Negative Negative LEUK KYLE Negative Negative RBC/HPF 5 (H) 0 - 3 HPF WBC/HPF 2 0 - 5 HPF BACTERIA Negative Negative HYAL CAST 1 <=2 LPF ABG+COOX+NA+K+GLU+CA2+ Collection Time: 10/22/18 1:48 AM Result Value Ref Range PH 7.31 (L) 7.35 - 7.45 PCO2 44 35 - 45 mmHg PO2 169 (H) 80 - 100 mmHg HCO3 22 22 - 26 mEq/L BE -4.8 (L) -3.0 - 3.0 mEq/L THB 14.5 13.5 - 18.0 g/dL %O2HB 96.1 94.0 - 99.0 % %COHB ART 2.8 (H) 0.0 - 1.5 % %METHB ART 0.3 (L) 0.4 - 1.5 % VOL%O2 ART 19.9 15.0 - 23.0 % NA 140 135 - 145 mmol/L K+ 4.0 3.5 - 5.0 mmol/L AC CA IONZ 5.10 4.50 - 5.30 mg/dL GLUCOSE 334 (H) 70 - 110 mg/dL POCT GLUCOSE (AUTOMATED) Collection Time: 10/22/18 3:51 AM Result Value Ref Range POCT GLU 260 (H) 70 - 110 mg/dL GLYCOSYLATED HEMOGLOBIN (A1C) Collection Time: 10/22/18 4:17 AM Result Value Ref Range HGB A1C 7.7 (H) 4.0 - 6.0 % NGSP POCT GLUCOSE (AUTOMATED) Collection Time: 10/22/18 10:15 AM Result Value Ref Range POCT GLU 219 (H) 70 - 110 mg/dL POCT GLUCOSE (AUTOMATED) Collection Time: 10/22/18 11:56 AM Result Value Ref Range POCT GLU 243 (H) 70 - 110 mg/dL Abdominal 1 View - To Confirm Nasogastric Tube Placement. Result Date: 10/22/2018 Tip of the orogastric tube is in the stomach. Xr Chest 1 Vw Result Date: 10/22/2018 Impression: No radiographic evidence for acute cardiopulmonary disease. Endotrac heal tube in satisfactory position 3.7 cm above the ara. NG tube terminates i n the midesophagus. This could be advanced approximately 14 cm for placement wit hin the stomach. RL: [id number] AFC: [id number] CURRENT MEDICATIONS - reviewed. Current Facility-Administered Medications Medication Dose Route Frequency Last Rate Last Dose atenolol (TENORMIN) tablet 50 mg 50 mg Oral DAILY 50 mg at 10/22/18 0900 dextrose 50 % in water (D50W) injection 25 mL 25 mL Slow IV Push PRN enoxaparin (LOVENOX) injection 40 mg 40 mg Subcutaneous DAILY 40 mg at 1000 glucagon (GLUCAGEN DIAGNOSTIC KIT) injection 1 mg 1 mg Intramuscular PRN lisinopril (PRINIVIL,ZESTRIL) tablet 10 mg 10 mg Oral DAILY 10 mg at 12/02 1001 NaCl 0.9% (NS) IV infusion 1,000 mL 1,000 mL IV Infusion CONTINUOUS 100 mL/ hr at 10/22/18 0428 1,000 mL at 10/22/18 0428 propofol injection 15 mcg/kg/min IV Infusion CONTINUOUS 19.67 mL/hr at 12/02 1016 30 mcg/kg/min at 10/22/18 1016 simvastatin (ZOCOR) tablet 40 mg 40 mg Oral QHS Sliding Scale Insulin-Regular + Fsbg Testing Subcutaneous AC+HS 2 Units at 10/22/18 1023 ASSESSMENT/PLAN Sascha David is a 38 year old male admitted to the hospital with: 1-Acute hypoxic respiratory failure, we will keep him on ventilatory support tod ay partially sedated and on CPAP with pressure support 2-toxic/metabolic acute encephalopathy , very likely related to drug overdose 3-Medication overdose 4-Suicidal attempt , he will need psych evaluation once he is extubated 5-Uncontrolled DM Type I . Hyperglycemia but no DKA Plan Ventilator support Moderate sedation Bowel rest with NG tube on suction Psych consult Blood sugar management Johana Tsai MD [phone] documented in this encounter Plan of Treatment Date/Time Name Type Priority Associated Diagnoses 10/26/2018 12:22 AM CDT BLOOD CULTURE SCREEN LAB Routine 10/26/2018 12:22 AM CDT BLOOD CULTURE SCREEN LAB Routine 10/26/2018 11:28 AM CDT SPUTUM CULTURE LAB Routine Order Schedule Name Type Priority Associated Diagnoses EVERY 24 HOURS (START TIME ADJUSTABLE) for 3 Days starting 10/24/2018 until 10/26/2018, 2 completed BASIC METABOLIC PANEL LAB [facility] (NA, K, CL, CO2, GLUCOSE, BUN, CREATININE, CA) STAT for 1 Occurrences starting 10/26/2018 Lactic Acid Whole Blood LAB Routine Health Maintenance Due Date Last Done Comments PNEUMOCOCCAL 0-64 YEARS 1986 COMBINED SERIES (1 of 1 - PPSV23) VARICELLA VACCINES (1 of 1993 2 - 13+ 2-dose series) DTaP,Tdap,and Td Vaccines 1999 (1 - Tdap) INFLUENZA VACCINE 11/14/2018 12/15/2017, 01/02/2017, 11/08/2015, Additional history exists documented as of this encounter Procedures Comments Procedure Name Priority Date/Time Associated Diagnosis POCT GLUCOSE (AUTOMATED) Routine 10/27/2018 12:15 PM CDT POCT GLUCOSE (AUTOMATED) Routine 10/27/2018 7:17 AM CDT POCT GLUCOSE (AUTOMATED) Routine 10/27/2018 3:08 AM CDT POCT GLUCOSE (AUTOMATED) Routine 10/26/2018 9:38 PM CDT POCT GLUCOSE (AUTOMATED) Routine 10/26/2018 5:39 PM CDT POCT GLUCOSE (AUTOMATED) Routine 10/26/2018 1:32 PM CDT URINALYSIS Routine 10/26/2018 11:13 AM CDT POCT GLUCOSE (AUTOMATED) Routine 10/26/2018 8:55 AM CDT LACTIC ACID WHOLE BLOOD STAT 10/26/2018 8:54 AM CDT XR CHEST 2 VW STAT 10/26/2018 Intentional drug 8:20 AM CDT overdose, initial encounter CBC WITH DIFFERENTIAL Routine 10/26/2018 5:17 AM CDT CBC WITH DIFF Routine 10/26/2018 5:17 AM CDT BASIC METABOLIC PANEL Routine 10/26/2018 (NA, K, CL, CO2, GLUCOSE, 5:17 AM CDT BUN, CREATININE, CA) POCT GLUCOSE (AUTOMATED) Routine 10/25/2018 8:15 PM CDT POCT GLUCOSE (AUTOMATED) Routine 10/25/2018 5:09 PM CDT POCT GLUCOSE (AUTOMATED) Routine 10/25/2018 12:16 PM CDT CBC WITH DIFFERENTIAL Routine 10/25/2018 8:27 AM CDT CBC WITH DIFF Routine 10/25/2018 8:27 AM CDT POCT GLUCOSE (AUTOMATED) Routine 10/25/2018 8:24 AM CDT POCT GLUCOSE (AUTOMATED) Routine 10/25/2018 8:22 AM CDT XR CHEST 1 VW STAT 10/25/2018 Intentional drug 7:54 AM CDT overdose, initial encounter POCT GLUCOSE (AUTOMATED) Routine 10/24/2018 11:43 PM CDT POCT GLUCOSE (AUTOMATED) Routine 10/24/2018 8:25 PM CDT POCT GLUCOSE (AUTOMATED) Routine 10/24/2018 11:22 AM CDT POCT GLUCOSE (AUTOMATED) Routine 10/24/2018 7:58 AM CDT CBC WITH DIFFERENTIAL Routine 10/24/2018 4:41 AM CDT CBC WITH DIFF Routine 10/24/2018 4:41 AM CDT BASIC METABOLIC PANEL CARLEE 10/24/2018 (NA, K, CL, CO2, GLUCOSE, 4:41 AM CDT BUN, CREATININE, CA) POCT GLUCOSE (AUTOMATED) Routine 10/23/2018 8:30 PM CDT POCT GLUCOSE (AUTOMATED) Routine 10/23/2018 4:20 PM CDT POCT GLUCOSE (AUTOMATED) Routine 10/23/2018 11:12 AM CDT POCT GLUCOSE (AUTOMATED) Routine 10/23/2018 8:40 AM CDT XR CHEST 1 VW STAT 10/23/2018 Intentional drug 8:30 AM CDT overdose, initial encounter CBC WITH DIFFERENTIAL Routine 10/22/2018 11:02 PM CDT CBC WITH DIFF Routine 10/22/2018 11:02 PM CDT BASIC METABOLIC PANEL CARLEE 10/22/2018 (NA, K, CL, CO2, GLUCOSE, 11:02 PM CDT BUN, CREATININE, CA) MAGNESIUM CAR[facility]E 10/22/2018 11:02 PM CDT POCT GLUCOSE (AUTOMATED) Routine 10/22/2018 8:56 PM CDT POCT GLUCOSE (AUTOMATED) Routine 10/22/2018 4:35 PM CDT XR ABDOMEN 1 VW STAT 10/22/2018 Intentional drug 12:05 PM CDT overdose, initial encounter POCT GLUCOSE (AUTOMATED) Routine 10/22/2018 11:56 AM CDT POCT GLUCOSE (AUTOMATED) Routine 10/22/2018 10:15 AM CDT GLYCOSYLATED HEMOGLOBIN [facility] 10/22/2018 (A1C) 4:17 AM CDT POCT GLUCOSE (AUTOMATED) Routine 10/22/2018 3:51 AM CDT MRSA / MSSA SCREEN BY CARLEE 10/22/2018 PCR, NARES 2:59 AM CDT XR CHEST 1 VW STAT 10/22/2018 Drug overdose, 1:59 AM CDT undetermined intent, initial encounter ABG+COOX+NA+K+GLU+CA2+ STAT 10/22/2018 Drug overdose, 1:48 AM CDT undetermined intent, initial encounter EXTRA TUBE URINE CULTURE STAT 10/22/2018 1:03 AM CDT URINALYSIS STAT 10/22/2018 Drug overdose, 1:03 AM CDT undetermined intent, initial encounter GALV/CLC ONLY - URINE STAT 10/22/2018 Drug overdose, DRUG (IMMUNOASSAY) - 4 ER 1:03 AM CDT undetermined intent, PANEL initial encounter POCT GLUCOSE (AUTOMATED) Routine 10/22/2018 12:59 AM CDT INTUBATION Routine 10/22/2018 12:53 AM CDT ETHANOL STAT 10/22/2018 Drug overdose, 12:50 AM CDT undetermined intent, initial encounter VALPROIC ACID, FREE STAT 10/22/2018 Drug overdose, 12:50 AM CDT undetermined intent, initial encounter VALPROIC ACID, TOTAL Add-on 10/22/2018 Drug overdose, 12:50 AM CDT undetermined intent, initial encounter SALICYLATE STAT 10/22/2018 Drug overdose, 12:50 AM CDT undetermined intent, initial encounter ACETAMINOPHEN STAT 10/22/2018 Drug overdose, 12:50 AM CDT undetermined intent, initial encounter COMP. METABOLIC PANEL STAT 10/22/2018 Drug overdose, (70061) 12:50 AM CDT undetermined intent, initial encounter TROPONIN I STAT 10/22/2018 Drug overdose, 12:50 AM CDT undetermined intent, initial encounter MAGNESIUM STAT 10/22/2018 Drug overdose, 12:50 AM CDT undetermined intent, initial encounter CBC WITH DIFFERENTIAL STAT 10/22/2018 Drug overdose, 12:49 AM CDT undetermined intent, initial encounter PROTHROMBIN TIME / INR STAT 10/22/2018 Drug overdose, 12:49 AM CDT undetermined intent, initial encounter CBC WITH DIFF STAT 10/22/2018 Drug overdose, 12:49 AM CDT undetermined intent, initial encounter EKG-12 LEAD Routine 10/22/2018 12:44 AM CDT EKG-12 LEAD Routine 10/22/2018 12:37 AM CDT documented in this encounter Results * POCT GLUCOSE (AUTOMATED) (10/27/2018 12:15 PM CDT) POCT GLU 296 (H) 70 - 110 mg/dL [facility] Specimen Blood Performing Organization Address [facility] Phone Number [facility] CLIA: [id number], [address] [place], [place] [address] [address] * POCT GLUCOSE (AUTOMATED) (10/27/2018 7:17 AM CDT) POCT GLU 194 (H) 70 - 110 mg/dL [facility] Specimen Blood Performing Organization Address [facility] Phone Number [facility] CLIA: [id number], [address] [place], [place] [address] St * POCT GLUCOSE (AUTOMATED) (10/27/2018 3:08 AM CDT) POCT GLU 280 (H) 70 - 110 mg/dL [facility] Specimen Blood Performing Organization Address [facility] Phone Number [facility] CLIA: [id number], [address] [place] [address] [address] * POCT GLUCOSE (AUTOMATED) (10/26/2018 9:38 PM CDT) POCT GLU 337 (H) 70 - 110 mg/dL [facility] Specimen Blood Performing Organization Address [facility] Phone Number [facility] CLIA: [id number], [address] [place] [address] [address] * POCT GLUCOSE (AUTOMATED) (10/26/2018 5:39 PM CDT) POCT GLU 272 (H) 70 - 110 mg/dL [facility] Specimen Blood Performing Organization Address [facility] Phone Number [facility] CLIA: [id number], [address] [place] [address] St * POCT GLUCOSE (AUTOMATED) (10/26/2018 1:32 PM CDT) POCT GLU 264 (H) 70 - 110 mg/dL [facility] Specimen Blood Performing Organization Address [facility] Phone Number [facility] CLIA: [id number], [address] [place] [address] St * URINALYSIS (10/26/2018 11:13 AM CDT) APPEARANCE Hazy (A) Clear [facility] COLOR Yellow Yellow [facility] PH 6.0 4.8 - 8.0 [facility] SP GRAVITY 1.010 1.003 - 1.030 [facility] GLU U QUAL 500 mg/dL (A) Normal [facility] BLOOD Negative Negative [facility] KETONES Negative Negative [facility] PROTEIN [facility] Negative [facility] UROBILIN Normal Normal [facility] BILIRUBIN Negative Negative [facility] NITRITE Negative Negative [facility] LEUK KYLE Negative Negative [facility] RBC/HPF 1 0 - 3 HPF [facility] WBC/HPF 1 0 - 5 HPF [facility] BACTERIA Negative Negative [facility] AMORPHOUS Rare Rare HPF [facility] SQ EPITH <1 <=2 HPF [facility] Specimen Urine - URINE, CLEAN CATCH Performing Organization Address [facility] Phone Number [facility] CLIA: [id number], [address] [place] [address] [facility] * POCT GLUCOSE (AUTOMATED) (10/26/2018 8:55 AM CDT) POCT GLU 161 (H) 70 - 110 mg/dL [facility] Specimen Blood Performing Organization Address [facility]/Zipcode Phone Number [facility] CLIA: [id number], [address] [place] [address] * Lactic Acid Whole Blood (10/26/2018 8:54 AM CDT) LACTIC ACID 0.92 0.50 - 2.20 mmol/L [facility] Specimen Blood - ARM, RIGHT Performing Organization Address [facility] Phone Number [facility] CLIA: [id number], [address] [place] [address] [facility] * XR CHEST 2 VW (10/26/2018 8:20 AM CDT) Specimen Impressions Performed At Worsening of bilateral ill-defined streaky and patchy hazy parenchymal PACS/VR/DOSE opacities, may represent multifocal infection in the proper clinical setting. If radiographic findings correlate with worsening clinical condition and suspicion for multifocal infection, consider further evaluation with CT chest with contrast. Narrative Performed At * * * * * * * * ORIGINAL REPORT * * * * * * * * PACS/VR/DOSE PROCEDURE: XR CHEST 2 VW CLINICAL INDICATION: fever COMPARISON: 10/25/2018 FINDINGS: Worsening of bilateral ill-defined streaky and patchy hazy parenchymal opacities, may represent multifocal infection in the proper clinical setting. Linear opacity in the left lung base near the costophrenic angle may represent an atelectasis. Trace left pleural effusion may be present. Normal heart size. Procedure Note [facility], Radiant Results Inft User - 10/26/2018 8:28 AM CDT * * * * * * * * ORIGINAL REPORT * * * * * * * * PROCEDURE: XR CHEST 2 VW CLINICAL INDICATION: fever COMPARISON: 10/25/2018 FINDINGS: Worsening of bilateral ill-defined streaky and patchy hazy parenchymal opacities, may represent multifocal infection in the proper clinical setting. Linear opacity in the left lung base near the costophrenic angle may represent an atelectasis. Trace left pleural effusion may be present. Normal heart size. IMPRESSION Worsening of bilateral ill-defined streaky and patchy hazy parenchymal opacities, may represent multifocal infection in the proper clinical setting. If radiographic findings correlate with worsening clinical condition and suspicion for multifocal infection, consider further evaluation with CT chest with contrast. Performing Organization Address City/State/Zipcode Phone Number PACS/VR/DOSE * CBC WITH DIFFERENTIAL (10/26/2018 5:17 AM CDT) WBC 10.14 4.20 - 10.70 [facility] RBC 3.75 (L) 4.26 - 5.52 10*6/L [facility] HGB 11.8 (L) 12.2 - 16.4 g/dL [facility] HCT 35.2 (L) 38.4 - 49.3 % [facility] MCV 93.9 81.7 - 95.6 fL [facility] MCH 31.5 26.1 - 32.7 pg [facility] MCHC 33.5 31.2 - 35.0 g/dL [facility] RDW-SD 42.5 38.5 - 51.6 fL [facility] RDW-CV 12.2 12.1 - 15.4 % [facility] PLT 193 150 - 328 10*3/L [facility] MPV 10.8 9.8 - 13.0 fL [facility] NRBC/100 WBC 0.0 0.0 - 10.0 /100 WBCs [facility] NRBC x10^3 <0.01 10*3/L [facility] GRAN MAT (NEUT) 53.3 % [facility] % [facility] IMM GRAN % 0.90 % [facility] LYMPH % 26.0 % [facility] MONO % 15.8 % [facility] EOS % 3.5 % [facility] BASO % 0.5 % [facility] GRAN MAT 5.41 1.99 - 6.95 10*3/uL [facility] x10^3(ANC) [facility] IMM GRAN x10^3 0.09 (H) 0.00 - 0.06 10*3/uL [facility] LYMPH x10^3 2.64 1.09 - 3.23 10*3/uL [facility] MONO x10^3 1.60 (H) 0.36 - 1.02 10*3/uL [facility] EOS x10^3 0.35 0.06 - 0.53 10*3/uL [facility] BASO x10^3 0.05 0.01 - 0.09 10*3/uL [facility] Specimen Blood - ARM, LEFT Performing Organization Address City/State/Zipcode Phone Number [facility] CLIA: [id number], [address] [place], [place] [address] [facility] * BASIC METABOLIC PANEL (NA, K, CL, CO2, GLUCOSE, BUN, CREATININE, CA) (10/26/2018 5:17 AM CDT) NA 134 (L) 135 - 145 mmol/L [facility] K 4.0 3.5 - 5.0 mmol/L [facility] CL 106 98 - 108 mmol/L [facility] CO2 TOTAL 23 23 - 31 mmol/L [facility] AGAP 5 2 - 16 [facility] BUN 8 7 - 23 mg/dL [facility] GLUCOSE 195 (H) 70 - 110 mg/dL [facility] CREATININE 0.75 0.60 - 1.25 mg/dL [facility] CALCIUM 8.6 8.6 - 10.6 mg/dL [facility] eGFR 116.6 mL/min/1.73m2 [facility] Calculation [facility] ([facility] [place]) eGFR 141.3 mL/min/1.73m2 [facility] Calculation [facility] ([facility]) Specimen Blood - ARM, LEFT Narrative Performed At [facility] of Glomerular Filtration Rate (GFR) and Staging of Kidney Disease* [facility] + + + + [facility] GFR (mL/min/1.73 m2)| With Kidney Damage|Without Kidney Damage CAMPUS + + + + |>90|Stage one| Normal + + + + |60-89|Stage two| Decreased GFR + + + + |30-59|Stage three| Stage three + + + + |15-29|Stage four | Stage four + + + + |<15 (or dialysis)|Stage five | Stage five + + + + *Each stage assumes the associated GFR level has been in effect for at least three months.Stages 1 to 5, with or without kidney disease, indicate chronic kidney disease. Notes: Determination of stages one and two (with eGFR >59mL/min/1.73 m2) requires estimation of kidney damage for at least three months as defined by structural or functional abnormalities of the kidney, manifested by either: Pathological abnormalities or Markers of kidney damage (including abnormalities in the composition of the blood or urine or abnormalities in imaging tests). Performing Organization Address City/[facility]ode Phone Number [facility] CLIA: [id number], [address] [place] [address] [facility] * POCT GLUCOSE (AUTOMATED) (10/25/2018 8:15 PM CDT) POCT GLU 242 (H) 70 - 110 mg/dL [facility] Specimen Blood Performing Organization Address [facility] Cent[facility]ode Phone Number [facility] CLIA: [id number], [address] [place], [place] [address] St * POCT GLUCOSE (AUTOMATED) (10/25/2018 5:09 PM CDT) POCT GLU 225 (H) 70 - 110 mg/dL [facility] Specimen Blood Performing Organization Address [facility] Cent[facility]ode Phone Number [facility] CLIA: [id number], [address] [place], [place] [address] St * POCT GLUCOSE (AUTOMATED) (10/25/2018 12:16 PM CDT) POCT GLU 264 (H) 70 - 110 mg/dL [facility] Specimen Blood Performing Organization Address City/State/Zipcode Phone Number [facility] CLIA: [id number], [address] [place] [address] St * CBC WITH DIFFERENTIAL (10/25/2018 8:27 AM CDT) WBC 10.75 (H) 4.20 - 10.70 [facility] 10*3/L [facility] RBC 3.60 (L) 4.26 - 5.52 10*6/L [facility] HGB 11.7 (L) 12.2 - 16.4 g/dL [facility] HCT 34.3 (L) 38.4 - 49.3 % [facility] MCV 95.3 81.7 - 95.6 fL [facility] MCH 32.5 26.1 - 32.7 pg [facility] MCHC 34.1 31.2 - 35.0 g/dL [facility] RDW-SD 44.9 38.5 - 51.6 fL [facility] RDW-CV 12.9 12.1 - 15.4 % [facility] PLT 218 150 - 328 10*3/L [facility] MPV 12.1 9.8 - 13.0 fL [facility] NRBC/100 WBC 0.0 0.0 - 10.0 /100 WBCs [facility] NRBC x10^3 <0.01 10*3/L [facility] GRAN MAT (NEUT) 57.2 % [facility] % [facility] IMM GRAN % 0.70 % [facility] LYMPH % 27.2 % [facility] MONO % 11.5 % [facility] EOS % 3.1 % [facility] BASO % 0.3 % [facility] GRAN MAT 6.15 1.99 - 6.95 10*3/uL [facility] x10^3(ANC) [facility] IMM GRAN x10^3 0.08 (H) 0.00 - 0.06 10*3/uL [facility] LYMPH x10^3 2.92 1.09 - 3.23 10*3/uL [facility] MONO x10^3 1.24 (H) 0.36 - 1.02 10*3/uL [facility] EOS x10^3 0.33 0.06 - 0.53 10*3/uL [facility] SERVICES-[facility] BASO x10^3 0.03 0.01 - 0.09 10*3/uL [facility] Specimen Blood - VENOUS Performing Organization Address City/[facility] Centercode Phone Number [facility] CLIA: [id number], [address] [place], [place] [address] [facility] * POCT GLUCOSE (AUTOMATED) (10/25/2018 8:24 AM CDT) POCT GLU 187 (H) 70 - 110 mg/dL [facility] Specimen Blood Performing Organization Address [facility] Centercode Phone Number [facility] CLIA: [id number], [address] [place], [place] [address] St * POCT GLUCOSE (AUTOMATED) (10/25/2018 8:22 AM CDT) POCT GLU 29 (LL) 70 - 110 mg/dL [facility] Specimen Blood Performing Organization Address [facility] Centercode Phone Number [facility] CLIA: [id number], [address] [place], [place] [address] St * XR CHEST 1 VW (10/25/2018 7:54 AM CDT) Specimen Narrative Performed At * * * * * * * * ORIGINAL REPORT * * * * * * * * PACS/VR/DOSE CHEST ONE VIEW HISTORY:fu intubated TECHNIQUE:AP view of the chest is obtained. COMPARISON: 10/23/2018 FINDINGS: A few linear lung markings are seen in the lung bases. Lungs are otherwise clear.. Heart size and mediastinal silhouette are normal. No pleural effusion or pneumothorax is seen. No tracheostomy or endotracheal tube is seen. CONCLUSIONS: Mild basilar atelectasis Procedure Note [facility], Radiant Results Inft User - 10/25/2018 8:02 AM CDT * * * * * * * * ORIGINAL REPORT * * * * * * * * CHEST ONE VIEW HISTORY: fu intubated TECHNIQUE: AP view of the chest is obtained. COMPARISON: 10/23/2018 FINDINGS: A few linear lung markings are seen in the lung bases. Lungs are otherwise clear.. Heart size and mediastinal silhouette are normal. No pleural effusion or pneumothorax is seen. No tracheostomy or endotracheal tube is seen. CONCLUSIONS: Mild basilar atelectasis Performing Organization Address [facility] Phone Number PACS/VR/DOSE * POCT GLUCOSE (AUTOMATED) (10/24/2018 11:43 PM CDT) POCT GLU 241 (H) 70 - 110 mg/dL [facility] Specimen Blood Performing Organization Address [facility] Phone Number [facility] CLIA: [id number], [address] [place] [address] St * POCT GLUCOSE (AUTOMATED) (10/24/2018 8:25 PM CDT) POCT GLU 242 (H) 70 - 110 mg/dL [facility] Specimen Blood Performing Organization Address [facility] Phone Number [facility] CLIA: [id number], [address] [place] [address] St * POCT GLUCOSE (AUTOMATED) (10/24/2018 11:22 AM CDT) POCT GLU 232 (H) 70 - 110 mg/dL [facility] Specimen Blood Performing Organization Address [facility] Phone Number [facility] CLIA: [id number], [address] [place] [address] St * POCT GLUCOSE (AUTOMATED) (10/24/2018 7:58 AM CDT) POCT GLU 138 (H) 70 - 110 mg/dL [facility] Specimen Blood Performing Organization Address City/State/Zipcode Phone Number [facility] CLIA: [id number], [address] [place] [address] St * CBC WITH DIFFERENTIAL (10/24/2018 4:41 AM CDT) WBC 9.15 4.20 - 10.70 [facility] 10*3/L [facility] RBC 3.51 (L) 4.26 - 5.52 10*6/L [facility] HGB 11.1 (L) 12.2 - 16.4 g/dL [facility] HCT 33.5 (L) 38.4 - 49.3 % [facility] MCV 95.4 81.7 - 95.6 fL [facility] MCH 31.6 26.1 - 32.7 pg [facility] MCHC 33.1 31.2 - 35.0 g/dL [facility] RDW-SD 46.2 38.5 - 51.6 fL [facility] RDW-CV 13.2 12.1 - 15.4 % [facility] PLT 163 150 - 328 10*3/L [facility] MPV 11.2 9.8 - 13.0 fL [facility] NRBC/100 WBC 0.0 0.0 - 10.0 /100 WBCs [facility] NRBC x10^3 <0.01 10*3/L [facility] GRAN MAT (NEUT) 55.8 % [facility] % [facility] IMM GRAN % 0.70 % [facility] LYMPH % 31.0 % [facility] MONO % 9.4 % [facility] EOS % 3.0 % [facility] BASO % 0.1 % [facility] GRAN MAT 5.11 1.99 - 6.95 10*3/uL [facility] x10^3(ANC) [facility] IMM GRAN x10^3 0.06 0.00 - 0.06 10*3/uL [facility] LYMPH x10^3 2.84 1.09 - 3.23 10*3/uL [facility] MONO x10^3 0.86 0.36 - 1.02 10*3/uL [facility] EOS x10^3 0.27 0.06 - 0.53 10*3/uL [facility] BASO x10^3 <0.03 0.01 - 0.09 10*3/uL [facility] Specimen Blood - VENOUS Performing Organization Address City/State/Zipcode Phone Number [facility] CLIA: [id number], [address] [place] [address] [facility] * BASIC METABOLIC PANEL (NA, K, CL, CO2, GLUCOSE, BUN, CREATININE, CA) (10/24/2018 4:41 AM CDT) NA 139 135 - 145 mmol/L [facility] K 3.9 3.5 - 5.0 mmol/L [facility] CL 109 (H) 98 - 108 mmol/L [facility] CO2 TOTAL 24 23 - 31 mmol/L [facility] AGAP 6 2 - 16 [facility] BUN 9 7 - 23 mg/dL [facility] GLUCOSE 147 (H) 70 - 110 mg/dL [facility] CREATININE 0.77 0.60 - 1.25 mg/dL [facility] CALCIUM 7.8 (L) 8.6 - 10.6 mg/dL [facility] eGFR 113.1 mL/min/1.73m2 [facility] Calculation [facility] ([facility] [place]) eGFR 137.0 mL/min/1.73m2 [facility] Calculation [facility] ([facility] [place]) Specimen Blood - VENOUS Narrative Performed At [facility] of Glomerular Filtration Rate (GFR) and Staging of Kidney Disease* [facility] + + + + SERVICES- [place] [place] | GFR (mL/min/1.73 m2)| With Kidney Damage|Without Kidney Damage CAMPUS + + + + |>90|Stage one| Normal + + + + |60-89|Stage two| Decreased GFR + + + + |30-59|Stage three| Stage three + + + + |15-29|Stage four | Stage four + + + + |<15 (or dialysis)|Stage five | Stage five + + + + *Each stage assumes the associated GFR level has been in effect for at least three months.Stages 1 to 5, with or without kidney disease, indicate chronic kidney disease. Notes: Determination of stages one and two (with eGFR >59mL/min/1.73 m2) requires estimation of kidney damage for at least three months as defined by structural or functional abnormalities of the kidney, manifested by either: Pathological abnormalities or Markers of kidney damage (including abnormalities in the composition of the blood or urine or abnormalities in imaging tests). Performing Organization Address City/[facility]ode Phone Number [facility] CLIA: [id number], [address] [place], [place] [address] [facility] * POCT GLUCOSE (AUTOMATED) (10/23/2018 8:30 PM CDT) POCT GLU 185 (H) 70 - 110 mg/dL [facility] Specimen Blood Performing Organization Address [facility] Centercode Phone Number [facility] CLIA: [id number], [address] [place], [place] [address] St * POCT GLUCOSE (AUTOMATED) (10/23/2018 4:20 PM CDT) POCT GLU 153 (H) 70 - 110 mg/dL [facility] Specimen Blood Performing Organization Address [facility] Cent[facility]ode Phone Number [facility] CLIA: [id number], [address] [place] [address] St * POCT GLUCOSE (AUTOMATED) (10/23/2018 11:12 AM CDT) POCT GLU 178 (H) 70 - 110 mg/dL [facility] Specimen Blood Performing Organization Address [facility] Centercomd Phone Number [facility] CLIA: [id number], [address] [place] [address] St * POCT GLUCOSE (AUTOMATED) (10/23/2018 8:40 AM CDT) POCT GLU 176 (H) 70 - 110 mg/dL [facility] Specimen Blood Performing Organization Address City/[facility]/Zipcode Phone Number [facility] CLIA: [id number], [address] [place] [address] St * XR CHEST 1 VW (10/23/2018 8:30 AM CDT) Specimen Impressions Performed At FINDINGS/IMPRESSION: PACS/VR/DOSE An endotracheal tube is not visualized. The lungs are mildly hypoinflated. Bibasilar opacities are likely due to subsegmental atelectasis. A small left pleural effusion is suspected. The heart is normal in size. Narrative Performed At * * * * * * * * ORIGINAL REPORT * * * * * * * * PACS/VR/DOSE XR CHEST 1 VW HISTORY: intubated COMPARISON: 10/22/2018 Procedure Note [facility], Radiant Results Inft User - 10/23/2018 9:12 AM CDT * * * * * * * * ORIGINAL REPORT * * * * * * * * XR CHEST 1 VW HISTORY: intubated COMPARISON: 10/22/2018 IMPRESSION FINDINGS/IMPRESSION: An endotracheal tube is not visualized. The lungs are mildly hypoinflated. Bibasilar opacities are likely due to subsegmental atelectasis. A small left pleural effusion is suspected. The heart is normal in size. Performing Organization Address City/[facility] Centercode Phone Number PACS/VR/DOSE * CBC WITH DIFFERENTIAL (10/22/2018 11:02 PM CDT) WBC 10.90 (H) 4.20 - 10.70 [facility] 10*3/L [facility] RBC 3.98 (L) 4.26 - 5.52 10*6/L [facility] HGB 12.8 12.2 - 16.4 g/dL [facility] HCT 38.4 38.4 - 49.3 % [facility] MCV 96.5 (H) 81.7 - 95.6 fL [facility] MCH 32.2 26.1 - 32.7 pg [facility] MCHC 33.3 31.2 - 35.0 g/dL [facility] RDW-SD 47.8 38.5 - 51.6 fL [facility] RDW-CV 13.5 12.1 - 15.4 % [facility] PLT 198 150 - 328 10*3/L [facility] MPV 10.5 9.8 - 13.0 fL [facility] NRBC/100 WBC 0.2 0.0 - 10.0 /100 WBCs [facility] NRBC x10^3 0.02 10*3/L [facility] GRAN MAT (NEUT) 49.8 % [facility] % [facility] IMM GRAN % 0.60 % [facility] LYMPH % 34.7 % [facility] MONO % 12.9 % [facility] EOS % 1.8 % [facility] BASO % 0.2 % [facility] GRAN MAT 5.42 1.99 - 6.95 10*3/uL [facility] x10^3(ANC) [facility] IMM GRAN x10^3 0.07 (H) 0.00 - 0.06 10*3/uL [facility] LYMPH x10^3 3.78 (H) 1.09 - 3.23 10*3/uL [facility] MONO x10^3 1.41 (H) 0.36 - 1.02 10*3/uL [facility] EOS x10^3 0.20 0.06 - 0.53 10*3/uL [facility] x10^3 <0.03 0.01 - 0.09 10*3/uL [facility] Specimen Blood - VENOUS Performing Organization Address City/State/Zipcode Phone Number [facility] CLIA: [id number], [address] [place] [address] [facility] * MAGNESIUM (10/22/2018 11:02 PM CDT) MAGNESIUM 1.6 (L) 1.7 - 2.4 mg/dL [facility] Specimen Blood - VENOUS Performing Organization Address City/State/Zipcode Phone Number [facility] CLIA: [id number], [address] [place] [address] [facility] * BASIC METABOLIC PANEL (NA, K, CL, CO2, GLUCOSE, BUN, CREATININE, CA) (10/22/2018 11:02 PM CDT) NA 139 135 - 145 mmol/L [facility] K 3.9 3.5 - 5.0 mmol/L [facility] CL 107 98 - 108 mmol/L [facility] CO2 TOTAL 26 23 - 31 mmol/L [facility] AGAP 6 2 - 16 [facility] BUN 13 7 - 23 mg/dL [facility] GLUCOSE 180 (H) 70 - 110 mg/dL [facility] CREATININE 1.16 0.60 - 1.25 mg/dL [facility] CALCIUM 8.5 (L) 8.6 - 10.6 mg/dL [facility] eGFR 70.5 mL/min/1.73m2 [facility] Calculation [facility] ([facility] [place]) eGFR 85.4 mL/min/1.73m2 [facility] Calculation [facility] ([facility] [place]) Specimen Blood - VENOUS Narrative Performed At Association of Glomerular Filtration Rate (GFR) and Staging of Kidney Disease* [facility] + + + + [facility] | GFR (mL/min/1.73 m2)| With Kidney Damage|Without Kidney Damage [place] + + + + |>90|Stage one| Normal + + + + |60-89|Stage two| Decreased GFR + + + + |30-59|Stage three| Stage three + + + + |15-29|Stage four | Stage four + + + + |<15 (or dialysis)|Stage five | Stage five + + + + *Each stage assumes the associated GFR level has been in effect for at least three months.Stages 1 to 5, with or without kidney disease, indicate chronic kidney disease. Notes: Determination of stages one and two (with eGFR >59mL/min/1.73 m2) requires estimation of kidney damage for at least three months as defined by structural or functional abnormalities of the kidney, manifested by either: Pathological abnormalities or Markers of kidney damage (including abnormalities in the composition of the blood or urine or abnormalities in imaging tests). Performing Organization Address City/[facility]/Zipcode Phone Number [facility] CLIA: [id number], [address] [place] [address] [facility] * POCT GLUCOSE (AUTOMATED) (10/22/2018 8:56 PM CDT) POCT GLU 162 (H) 70 - 110 mg/dL [facility] Specimen Blood Performing Organization Address [facility] Phone Number [facility] CLIA: [id number], [address] [place] [address] [place] * POCT GLUCOSE (AUTOMATED) (10/22/2018 4:35 PM CDT) POCT GLU 178 (H) 70 - 110 mg/dL [facility] Specimen Blood Performing Organization Address [facility] Phone Number [facility] CLIA: [id number], [address] [place] [address] St * Abdominal 1 View - To confirm nasogastric tube placement. (10/22/2018 12:05 PM CDT) Specimen Impressions Performed At Tip of the orogastric tube is in the stomach. PACS/VR/DOSE Narrative Performed At * * * * * * * * ORIGINAL REPORT * * * * * * * * PACS/VR/DOSE EXAM: Abdomen 1 view HISTORY:OG tube placement verification TECHNIQUE:An AP view of the abdomen is obtained. FINDINGS:The tip and side-port of the orogastric tube are in the stomach. The bowel gas pattern is nonobstructive. Procedure Note [facility], Radiant Results Inft User - 10/22/2018 12:10 PM CDT * * * * * * * * ORIGINAL REPORT * * * * * * * * EXAM: Abdomen 1 view HISTORY: OG tube placement verification TECHNIQUE:An AP view of the abdomen is obtained. FINDINGS:The tip and side-port of the orogastric tube are in the stomach. The bowel gas pattern is nonobstructive. IMPRESSION Tip of the orogastric tube is in the stomach. Performing Organization Address City/[facility]/Zipcode Phone Number PACS/VR/DOSE * POCT GLUCOSE (AUTOMATED) (10/22/2018 11:56 AM CDT) POCT GLU 243 (H) 70 - 110 mg/dL [facility] Specimen Blood Performing Organization Address City/[facility] Cent[facility]ode Phone Number [facility] CLIA: [id number], [address] [place], [place] [address] St * POCT GLUCOSE (AUTOMATED) (10/22/2018 10:15 AM CDT) POCT GLU 219 (H) 70 - 110 mg/dL [facility] Specimen Blood Performing Organization Address [facility] Phone Number [facility] CLIA: [id number], [address] [place], [place] [address] St * GLYCOSYLATED HEMOGLOBIN (A1C) (10/22/2018 4:17 AM CDT) HGB A1C 7.7 (H) 4.0 - 6.0 % NGSP [facility] SERVICES-[facility] Specimen Blood - VENOUS Performing Organization Address [facility] Phone Number [facility] CLIA: [id number], [address] [place], [place] [address] [facility] * POCT GLUCOSE (AUTOMATED) (10/22/2018 3:51 AM CDT) POCT GLU 260 (H) 70 - 110 mg/dL [facility] Specimen Blood Performing Organization Address [facility] Cent[facility]ode Phone Number [facility] CLIA: [id number], [address] [place], [place] [address] St * MRSA / MSSA SCREEN BY PCR, NARES (10/22/2018 2:59 AM CDT) MRSA Screen by Negative Negative [facility] PCR, [facility] SERVICES MSSA Screen by Positive (A) Negative [facility] PCR, [facility] MRSA/MSSA Yes (A) No [facility] Positive? SERVICES Specimen Swab - NARES, BOTH SIDES Narrative Performed At A positive test result does not necessarily indicate the presence of viable [facility] organism. SERVICES Performing Organization Address City/State/Zipcode Phone Number [facility] SERVICES CLIA: [id number], [address] [place] [address] [address] * XR CHEST 1 VW (10/22/2018 1:59 AM CDT) Specimen Impressions Performed At Impression: PACS/VR/DOSE No radiographic evidence for acute cardiopulmonary disease. Endotracheal tube in satisfactory position 3.7 cm above the ara. NG tube terminates in the midesophagus. This could be advanced approximately 14 cm for placement within the stomach. RL: [id number] AFC: [id number] Narrative Performed At Indication: Intubation PACS/VR/DOSE Comparison: None Findings: Single AP view of the chest. The cardiopericardial silhouette is within normal limits. Endotracheal tube terminates 3.7 cm above the ara. NG tube terminates in the mid esophagus. The lungs are clear bilaterally. The visualized bony thorax is intact. Procedure Note [facility], Radiant Results Inft User - 10/22/2018 2:20 AM CDT Indication: Intubation Comparison: None Findings: Single AP view of the chest. The cardiopericardial silhouette is within normal limits. Endotracheal tube terminates 3.7 cm above the ara. NG tube terminates in the mid esophagus. The lungs are clear bilaterally. The visualized bony thorax is intact. IMPRESSION Impression: No radiographic evidence for acute cardiopulmonary disease. Endotracheal tube in satisfactory position 3.7 cm above the ara. NG tube terminates in the midesophagus. This could be advanced approximately 14 cm for placement within the stomach. RL: [id number] AFC: [id number] Performing Organization Address City/State/Zipcode Phone Number PACS/VR/DOSE * [id number] (10/22/2018 1:48 AM CDT) PH 7.31 (L) 7.35 - 7.45 [facility] PCO2 44 35 - 45 mmHg [facility] PO2 169 (H) 80 - 100 mmHg [facility] HCO3 22 22 - 26 mEq/L [facility] BE -4.8 (L) -3.0 - 3.0 mEq/L [facility] THB 14.5 13.5 - 18.0 g/dL [facility] %O2HB 96.1 94.0 - 99.0 % [facility] %COHB ART 2.8 (H) 0.0 - 1.5 % [facility] %METHB ART 0.3 (L) 0.4 - 1.5 % [facility] VOL%O2 ART 19.9 15.0 - 23.0 % [facility] NA 140 135 - 145 mmol/L [facility] K+ 4.0 3.5 - 5.0 mmol/L [facility] AC CA IONZ 5.10 4.50 - 5.30 mg/dL [facility] GLUCOSE 334 (H) 70 - 110 mg/dL [facility] Specimen Blood Performing Organization Address City/[facility] Phone Number [facility] CLIA: [id number], [address] [phone] [facility] * EXTRA TUBE URINE CULTURE (10/22/2018 1:03 AM CDT) Specimen Urine - URINE, CLEAN CATCH Performing Organization Address City/[facility] Phone Number [facility] CLIA: [id number], [address] [place] [address] [facility] * URINALYSIS (10/22/2018 1:03 AM CDT) APPEARANCE Clear Clear [facility] COLOR Yellow Yellow [facility] PH 8.0 4.8 - 8.0 [facility] SP GRAVITY 1.024 1.003 - 1.030 [facility] GLU U QUAL 500 mg/dL (A) Normal [facility] BLOOD Negative Negative [facility] KETONES Negative Negative [facility] PROTEIN Negative Negative [facility] UROBILIN Normal Normal [facility] BILIRUBIN Negative Negative [facility] NITRITE Negative Negative [facility] LEUK KYLE Negative Negative [facility] RBC/HPF 5 (H) 0 - 3 HPF [facility] WBC/HPF 2 0 - 5 HPF [facility] BACTERIA Negative Negative [facility] HYAL CAST 1 <=2 LPF [facility] Specimen Urine - URINE, CATHETERIZED Performing Organization Address [facility] Phone Number [facility] CLIA: [id number], [address] [place], [place] [address] [facility] * DRUG SCREEN ER (URINE) (10/22/2018 1:03 AM CDT) AMPHET Negative Negative [facility] Cocaine Negative Negative [facility] Metabolite [facility] OPIATES Negative Negative [facility] THC Negative Negative [facility] Specimen Urine - URINE, CATHETERIZED Narrative Performed At Urine Drug Cutoff Ranges [facility] Amphetamine: 1,000 ng/mL [facility] Cocaine: 150 ng/mL [place] Opiates: 300 ng/mL Cannabinoids:50 ng/mL The results are to be used only for medical (i.e., treatment) purposes. Unconfirmed screening results must not be used for non-medical purposes (e.g., employment testing, legal testing). Performing Organization Address [facility] Center[facility] Phone Number [facility] CLIA: [id number], [address] [place] [address] [facility] * POCT GLUCOSE (AUTOMATED) (10/22/2018 12:59 AM CDT) POCT GLU 424 (H) 70 - 110 mg/dL [facility] Specimen Blood Performing Organization Address [facility] Centercode Phone Number [facility] CLIA: [id number], [address] [place], [place] [address] St * Intubation (10/22/2018 12:53 AM CDT) Narrative Performed At Matt Garcia MD 10/22/20183:18 AM Intubation Date/Time: 10/22/2018 3:14 AM Performed by: Matt Garcia MD Authorized by: Matt Garcia MD Consent: Consent obtained:Emergent situation Pre-procedure details: Patient status:Unresponsive Procedure details: Preoxygenation:Nonrebreather mask CPR in progress: no Intubation method:Oral Oral intubation technique:Video-assisted Tube size (mm):7.5 Tube type:Cuffed Number of attempts:1 Tube visualized through cords: yes Placement assessment: ETT to lip:23 Tube secured with:Adhesive tape and ETT mario Breath sounds:Equal and absent over the epigastrium Placement verification: chest rise, CXR verification and ETCO2 detector CXR findings:ETT in proper place Post-procedure details: Patient tolerance of procedure:Tolerated well, no immediate complications * VALPROIC ACID, TOTAL (10/22/2018 12:50 AM CDT) VALPROIC A 61 50 - 100 ug/mL [facility] Specimen Blood - VENOUS Narrative Performed At Toxic Range:Greater than 100 ug/mL [facility] Performing Organization Address [facility] Phone Number [facility] CLIA: [id number], [address] [place], [place] [id number] [facility] * MAGNESIUM (10/22/2018 12:50 AM CDT) MAGNESIUM 1.9 1.7 - 2.4 mg/dL [facility] Specimen Blood - VENOUS Performing Organization Address [facility] Phone Number [facility] CLIA: [id number], [address] [place], [place] [address] [facility] * SALICYLATE (10/22/2018 12:50 AM CDT) SALICYLATE <10 mg/L [facility] Specimen Blood - VENOUS Narrative Performed At Therapeutic Range: [facility] Analgesic and Antipyretic Use 20-100 mg/L [facility] Anti-Inflammatory Use 100-250 mg/L [place] Toxic Range: Greater than 300 mg/L Performing Organization Address [facility] Cent[facility]ode Phone Number [facility] CLIA: [id number], [address] [place] [address] [facility] * ACETAMINOPHEN (10/22/2018 12:50 AM CDT) ACETAMINOP <10.0 (L) 10.0 - 30.0 ug/mL [facility] Specimen Blood - VENOUS Narrative Performed At Toxic: Greater than 200 ug/mL @ 4 hour post ingestion or greater than 50 ug/mL @ [facility] 12 hour post ingestion [facility] Performing Organization Address City/[facility]/Zipcode Phone Number [facility] CLIA: [id number], [address] [place] [address] [facility] * ETHANOL (10/22/2018 12:50 AM CDT) ALCOHOL 90 mg/dL [facility] Specimen Blood - VENOUS Narrative Performed At Toxic Greater than or equal to 80 mg/dL. [facility] NOTE: Whole blood values are approximately 10% to 15% lower than serum and [facility] plasma. CAMPUS Performing Organization Address City/State/Zipcode Phone Number [facility] CLIA: [id number], [address] [place] [address] [facility] * VALPROIC ACID, FREE (10/22/2018 12:50 AM CDT) Valproic Acid, 4.9 4.0 - 15.0 ug/mL [facility] Free SERVICES Specimen Blood - VENOUS Narrative Performed At Toxic Range: Greater than 15 ug/mL [facility] Test developed and characteristics determined by [facility] Laboratory Services. SERVICES Performing Organization Address City/State/Zipcode Phone Number [facility] SERVICES CLIA: [id number], [address] [place] [address] [facility] * TROPONIN I (10/22/2018 12:50 AM CDT) TROPONIN I 0.000 <=0.034 ng/mL [facility] Specimen Blood - VENOUS Narrative Performed At Equal or Less than 0.034 ng/ml---Normal [facility] Note: Cardiac troponin begins to rise 3-4 hours after the onset of ischemia. [facility] Repeat in 4-6 hours if the sample was drawn within 3-4 hours of the onset of the CAMPUS symptom and found normal. Between 0.035 and 0.120 ng/mL--- Borderline. Questionable myocardial injury or necrosis Note: Serial measurement may be necessary to confirm or exclude the diagnosis of myocardial injury or necrosis; Clinical correlation (symptoms, EKGs, imaging studies, and others) required; Repeat in 4-6 hours if clinically indicated. Equal or Higher than 0.121 ng/mL---Abnormal. Myocardial Injury or Necrosis Likely Biotin has been reported to cause a negative bias, interpret results relative to patient's use of biotin. Performing Organization Address City/State/Zipcode Phone Number [facility] CLIA: [id number], [address] [place] [address] [facility] * COMP. METABOLIC PANEL (86267) (10/22/2018 12:50 AM CDT) NA 139 135 - 145 mmol/L [facility] K 4.1 3.5 - 5.0 mmol/L [facility] CL 102 98 - 108 mmol/L [facility] CO2 TOTAL 20 (L) 23 - 31 mmol/L [facility] AGAP 17 (H) 2 - 16 [facility] BUN 8 7 - 23 mg/dL [facility] GLUCOSE 373 (H) 70 - 110 mg/dL [facility] CREATININE 1.19 0.60 - 1.25 mg/dL [facility] TOTAL BILI 0.4 0.1 - 1.1 mg/dL [facility] CALCIUM 10.7 (H) 8.6 - 10.6 mg/dL [facility] T PROTEIN 7.5 6.3 - 8.2 g/dL [facility] ALBUMIN 4.4 3.5 - 5.0 g/dL [facility] ALK PHOS 65 34 - 122 U/L [facility] ALT(SGPT) 49 9 - 51 U/L [facility] AST(SGOT) 46 (H) 13 - 40 U/L [facility] eGFR 68.4 mL/min/1.73m2 [facility] Cal[facility] eGFR 82.9 mL/min/1.73m2 [facility] Specimen Blood - VENOUS Narrative Performed At Association of Glomerular Filtration Rate (GFR) and Staging of Kidney Disease* [facility] + + + + [facility] | GFR (mL/min/1.73 m2)| With Kidney Damage|Without Kidney Damage CAMPUS + + + + |>90|Stage one| Normal + + + + |60-89|Stage two| Decreased GFR + + + + |30-59|Stage three| Stage three + + + + |15-29|Stage four | Stage four + + + + |<15 (or dialysis)|Stage five | Stage five + + + + *Each stage assumes the associated GFR level has been in effect for at least three months.Stages 1 to 5, with or without kidney disease, indicate chronic kidney disease. Notes: Determination of stages one and two (with eGFR >59mL/min/1.73 m2) requires estimation of kidney damage for at least three months as defined by structural or functional abnormalities of the kidney, manifested by either: Pathological abnormalities or Markers of kidney damage (including abnormalities in the composition of the blood or urine or abnormalities in imaging tests). Performing Organization Address City/State/Zipcode Phone Number [facility] CLIA: [id number], [address] [place] [address] [facility] * CBC WITH DIFFERENTIAL (10/22/2018 12:49 AM CDT) WBC 9.15 4.20 - 10.70 [facility] 10*3/L [facility] RBC 4.81 4.26 - 5.52 10*6/L [facility] HGB 15.6 12.2 - 16.4 g/dL [facility] HCT 45.6 38.4 - 49.3 % [facility] MCV 94.8 81.7 - 95.6 fL [facility] MCH 32.4 26.1 - 32.7 pg [facility] MCHC 34.2 31.2 - 35.0 g/dL [facility] RDW-SD 44.1 38.5 - 51.6 fL [facility] RDW-CV 12.9 12.1 - 15.4 % [facility] PLT 268 150 - 328 10*3/L [facility] MPV 11.1 9.8 - 13.0 fL [facility] NRBC/100 WBC 0.0 0.0 - 10.0 /100 WBCs [facility] NRBC x10^3 <0.01 10*3/L [facility] GRAN MAT (NEUT) 45.4 % [facility] % [facility] IMM GRAN % 1.00 % [facility] LYMPH % 40.3 % [facility] MONO % 12.1 % [facility] EOS % 1.0 % [facility] BASO % 0.2 % [facility] GRAN MAT 4.15 1.99 - 6.95 10*3/uL [facility] x10^3(ANC) [facility] IMM GRAN x10^3 0.09 (H) 0.00 - 0.06 10*3/uL [facility] LYMPH x10^3 3.69 (H) 1.09 - 3.23 10*3/uL [facility] MONO x10^3 1.11 (H) 0.36 - 1.02 10*3/uL [facility] EOS x10^3 0.09 0.06 - 0.53 10*3/uL [facility] BASO x10^3 <0.03 0.01 - 0.09 10*3/uL [facility] Specimen Blood - VENOUS Performing Organization Address City/State/Zipcode Phone Number [facility] CLIA: [id number], [address] [place] [address] [facility] * PROTHROMBIN TIME / INR (10/22/2018 12:49 AM CDT) PROTIME PATIENT 10.3 10.1 - 12.6 Seconds [facility] SERVICES-[facility] INR 0.9Comment: Normal INR <1.1; [facility] Warfarin Therapeutic range 2.0 [facility] to 3.0 or 2.5 to 3.5, [facility] depending upon the indications. Specimen Blood - VENOUS Performing Organization Address City/State/Zipcode Phone Number [facility] CLIA: [id number], [address] [place] [address] [facility] documented in this encounter Visit Diagnoses Diagnosis Intentional drug overdose, initial encounter - Primary Drug overdose, undetermined intent, initial encounter Altered mental status, unspecified altered mental status type Obesity (BMI 30-39.9) Obesity, unspecified documented in this encounter Administered Medications Action Date Dose Rate Site Medication Order MAR Action 10/27/2018 1:28 AM CDT 650 mg acetaminophen (TYLENOL) tablet 650 mg Given 650 mg, Oral, Q4HPRN, Starting Thu10/26/18 at 0056, Until Discontinued, Routine, Pain (scale 4-6), Temp > 38.5 C 650 mg Given 10/26/2018 8:37 PM CDT 10/27/2018 8:37 AM CDT 50 mg atenolol (TENORMIN) tablet 50 mg Given 50 mg, Oral, DAILY, First dose on Thu10/22/18 at 0900, Until Discontinued, Routine 50 mg Given 10/26/2018 8:24 AM CDT 50 mg Given 10/25/2018 8:38 AM CDT 10/27/2018 8:41 AM CDT 40 mg Abdomen-SC enoxaparin (LOVENOX) injection 40 mg Given 40 mg, Subcutaneous, DAILY, First dose on Thu10/22/18 at 0900, Until Discontinued, Routine 40 mg Abdomen-SC Given 10/26/2018 8:25 AM CDT 40 mg Abdomen-SC Given 10/25/2018 8:38 AM CDT 10/27/2018 11:12 AM CDT 3 mL ipratropium-albuterol (DUONEB) 0.5 mg-3 Given mg(2.5 mg base)/3 mL nebulizer solution 3 mL 3 mL, Inhalation, QID, First dose on Thu10/26/18 at 1600, Until Discontinued, Routine 3 mL Given 10/27/2018 7:02 AM CDT 3 mL Given 10/26/2018 9:02 PM CDT 10/26/2018 4:47 PM CDT 750 mg levoFLOXacin (LEVAQUIN) tablet 750 mg Given 750 mg, Oral, Q24H ABX, First dose on Thu10/26/18 at 1600, Until Discontinued, CARLEE, Reason for Anti-Infective: Empiric Therapy for Suspected Infection, Empiric Therapy Site: Respiratory, Duration of therapy: 7 days 10/27/2018 8:37 AM CDT 10 mg lisinopril (PRINIVIL,ZESTRIL) tablet 10 Given mg 10 mg, Oral, DAILY, First dose on Thu10/22/18 at 0900, Until Discontinued, Routine 10 mg Given 10/26/2018 8:24 AM CDT 10 mg Given 10/25/2018 8:38 AM CDT 10/26/2018 8:36 PM CDT 40 mg simvastatin (ZOCOR) tablet 40 mg Given 40 mg, Oral, QHS, First dose on Thu10/22/18 at 2100, Until Discontinued, Routine 40 mg Given 10/25/2018 8:37 PM CDT 40 mg Given 10/24/2018 8:31 PM CDT 10/27/2018 8:41 AM CDT 1 Units Abdomen-SC Sliding Scale Insulin-Regular + Fsbg Given Testing Subcutaneous, AC+HS, First dose on Thu10/22/18 at 0730, Until Discontinued, Routine 3 Units Abdomen-SC Given 10/27/2018 3:18 AM CDT 5 Units Abdomen-SC Given 10/26/2018 9:58 PM CDT Action Date Dose Rate Site Medication Order MAR Action 10/25/2018 11:07 PM CDT 650 mg acetaminophen (TYLENOL) tablet 650 mg Given 650 mg, Oral, Q4HPRN, Starting Thu10/25/18 at 2249, Until Thu10/26/18 at 0057, Routine, Pain (scale 4-6) 10/27/2018 1:17 PM CDT 0.25 mg LORazepam (ATIVAN) tablet 0.25 mg Given 0.25 mg, Oral, ONCE, 1 dose, Thu10/27/18 at 1300, Routine 10/23/2018 12:08 AM CDT 1 g magnesium sulfate in D5W 1 gram/100 mL Given RTU IV Piggyback 1 g 1 g, IV Piggyback, ONCE, 1 dose, 10/23/18 at 0015, 100 mL 10/23/2018 9:52 AM CDT 2 g magnesium sulfate in water 2 gram/50 mL New Bag (4 %) infusion 2 g 2 g, IV Piggyback, ONCE, 1 dose, 10/23/18 at 0830, Routine 10/22/2018 1:45 AM CDT 1,000 mL 999 mL/hr NaCl 0.9% (NS) bolus infusion 1,000 mL New Bag at 999 mL/hr, 1,000 mL, IV Piggyback, ONCE, 1 dose, Thu10/22/18 at 0145, STAT 10/22/2018 11:55 PM CDT 500 mL 999 mL/hr NaCl 0.9% (NS) bolus infusion 500 mL New Bag at 999 mL/hr, 500 mL, IV Infusion, ONCE, 1 dose, 10/23/18 at 0100, STAT 10/23/2018 5:30 AM CDT 1,000 mL 100 mL/hr NaCl 0.9% (NS) IV infusion 1,000 mL New Bag at 100 mL/hr, IV Infusion, CONTINUOUS, Starting Thu10/22/18 at 0500, Until Thu10/25/18 at 1126, Routine 1,000 mL 100 mL/hr New Bag 10/22/2018 11:44 PM CDT 100 mL/hr Dose/Rate Verify 10/22/2018 5:00 PM CDT 10/26/2018 2:14 PM CDT 3.375 g piperacillin-tazobactam (ZOSYN) 3.375 Given gram/50 mL Piggyback 3.375 g 3.375 g, IV Piggyback, Q6H ABX, First dose on Thu10/26/18 at 0830, Until Discontinued, 50 mL, Reason for Anti-Infective: Empiric Therapy for Suspected Infection, Empiric Therapy Site: Respiratory, Duration of therapy: 7 days 3.375 g Given 10/26/2018 9:42 AM CDT 10/23/2018 6:00 AM CDT 30 mcg/kg/min 19.67 mL/hr propofol injection New Bag 15 mcg/kg/min 109.3 kg (9.837 mL/hr, rounded to 9.84 mL/hr), IV Infusion, at 9.84 mL/hr, CONTINUOUS, Starting 10/22/18 at 0245, Until 10/23/18 at 1017, Routine 30 mcg/kg/min 19.67 mL/hr New Bag 10/23/2018 12:45 AM CDT 30 mcg/kg/min 19.67 mL/hr New Bag 10/22/2018 8:35 PM CDT documented in this encounter Insurance Type Payer Benefit Subscriber ID Effective Phone Address Plan / Dates Group [place] [id number] 2010-P [id number] [facility] [place] [address] documented as of this encounter
--- OUTSIDE RECORDS SUMMARY | 2018-12-20 23:19 | XMS REPORT | Summary of Care ---
Author Author [facility] Organization [facility] Address Unknown Phone Unavailable Care Team Providers Care Museum Preparator Name Role Phone Donell Chowdhury PCP Reason for Visit * Reason Comments Transition Of Care Encounter Details Care Team Description Date Type Department Stefanie Miner, ROBIN [address] [place] [id number] Transition Of Care 10/28/2018 Transition of [facility] Allergies No Known Allergiesdocumented as of this encounter (statuses as of 10/28/2018) Medications End Date Status Medication Sig Dispensed [...] daily for 10 overdose, initial days. encounter documented as of this encounter (statuses as of 10/28/2018) Active Problems Problem Noted Date Overdose 10/22/2018 Obesity (BMI 30-39.9) 10/22/2018 documented as of this encounter (statuses as of 10/28/2018) Social History Date Tobacco Use Types Packs/Day Years Used Current Every Day Smoker Drinks/Week oz/Week Comments Alcohol Use Yes Sex Assigned at Date Recorded Not on file Industry Job Start Date Occupation Not on file Not on file Not on file Travel End Travel History Travel Start No recent travel history available. documented as of this encounter Last Filed Vital Signs Not on filedocumented in this encounter Plan of Treatment Health Maintenance Due Date Last Done Comments PNEUMOCOCCAL 0-64 YEARS 1986 COMBINED SERIES (1 of 1 - PPSV23) VARICELLA VACCINES (1 of 1993 2 - 13+ 2-dose series) DTaP,Tdap,and Td Vaccines 1999 (1 - Tdap) INFLUENZA VACCINE (#1) 2018 12/15/2017, 01/02/2017, 11/08/2015, Additional history exists documented as of this encounter Results Not on filedocumented in this encounter Insurance Type Payer Benefit Subscriber ID Effective Phone Address Plan / Dates Group [place] [id number] 2010-P [id number] [place] [address] documented as of this encounter
[2018-12-20] MEDS ORDERED: PREDNISONE 20 MG TAB PO ONE (23:30)
[2018-12-20] MEDS ORDERED: TETANUS/DIPHTHERIA TOX ADULT 0.5 ML SYR IM ONE (23:30)
[2018-12-20] MEDS ORDERED: LIDOCAINE VISC 2% SOLN 15 ML UDC PO ONE (23:30)
[2018-12-20] MEDS ORDERED: ACETAMINOPHEN 325 MG TAB PO PRN (23:45)
[2018-12-21 00:47] VITALS: BP 138/90
== END 2018-12-21 00:53 | disposition home or self-care (01) ==
LOC: ER 23:14
DX: T28.0XXA Burn of mouth and pharynx, initial encounter (principal); F19.90 Other psychoactive substance use, unspecified, uncomplicated; X08.8XXA Exposure to other specified smoke, fire and flames, initial encounter; Y92.89 Other specified places as the place of occurrence of the external cause
CPT/HCPCS: 99282; J7512

== ENCOUNTER 2019-02-26 05:44 | Inpatient (IN) | payer MEDICARE ==
[~2019-02-26] VITALS: Ht 188 cm; Wt 87.5 kg
[2019-02-26] VITALS (7 sets, daily range): BP systolic 115–146; BP diastolic 69–87
--- NOTE | 2019-02-26 07:22 | Diagnostic Imaging Report ---
History: Left-sided facial swelling for 3 days Comparison studies:None Technique: Axial images were obtained to the vertex and maxillofacial region. Coronal and sagittal images reconstructed from the axial data. Dose modulation, iterative reconstruction, and/or weight based adjustment of the mA/kV was utilized to reduce the radiation dose to as low as reasonably achievable. Intravenous contrast: None Findings: Scalp/skull: No abnormalities. No fractures, blastic or lytic lesions. Extra-axial spaces: No masses. No fluid collections. Brain sulci: Appropriate for age. Ventricles: Normal in size and configuration. No hydrocephalus. Parenchyma: No abnormal densities. No masses, hemorrhage, acute or chronic cortical vascular insults. Sellar/suprasellar region: No abnormalities Craniocervical junction: Patent foramen magnum. No Chiari one malformation. Maxillofacial CT: Soft tissues: There is inflammatory stranding and phlegmon centered within the left nasolabial fold and premaxillary soft tissues with thickening of the overlying skin and possible tiny nodule. The region of inflammation is partially obscured secondary to streak artifact from dental implants. No measurable fluid collection or abscess is clearly identified. The underlying maxillary sinus is clear. No underlying osseous destruction or periosteal reaction. No extension to the periorbital soft tissues. No additional regions of soft tissue inflammation. There are multiple enlarged bilateral submental, submandibular, and upper cervical chain lymph nodes. For example a left submandibular lymph node is rounded and measures up to 1.2 cm in the short axis on series 303 image 153. A right submental lymph node is rounded in measures up to 1.2 cm on series 303 image 162. Bones: No acute fractures or bone abnormalities. Plate and screw construct is present along the right orbital floor remote fracture. Orbits: Globes: Intact Extra or intraconal abnormalities: None. Paranasal sinuses: Clear Incidental findings: Mild chronic deep depression of the right medial orbital wall. IMPRESSION: CT head: 1. No acute intracranial abnormality. Maxillofacial CT: 1. Cellulitis and inflammatory phlegmon involving the left nasolabial fold and premaxillary soft tissues. Although artifact from adjacent dental implants mildly limits evaluation, no discrete fluid collection or abscess is identified. 2. Bilateral lymphadenopathy of the submental, submandibular, and upper cervical chain lymph nodes. This is favored to be reactive in the setting of above-described inflammation. Clinical follow-up is recommended to ensure resolution. The images and preliminary report provided by the neuroradiology fellow were reviewed and a final report issued by Dr. Lozano neuroradiology faculty on 02/26/2019 at 2:33 PM. Signed by: Dr. Arlene Damian M.D. on 02/26/2019 2:34 PM
[2019-02-26] MEDS ORDERED: MORPHINE SULFATE 2 MG/ML SYR 1ML IV STA (07:37)
[2019-02-26] MEDS ORDERED: ONDANSETRON HCL INJ 2MG/ML 2ML 2 MG/ML VIAL IV PRN (07:45)
[2019-02-26] MEDS ORDERED: SODIUM CHLORIDE FLUSH 10 ML SYR INJ PRN (07:45)
[2019-02-26] MEDS: CEFEPIME 1GM/NS 0.9% 50 ML 50 ML IV SCH ×2 (07:57→19:58)
--- NOTE | 2019-02-26 08:57 | NUR ---
RECEIVED PATIENT FROM [facility]. PATIENT A/O X3, EVEN RESPIRATIONS ON RA. LUNG SOUNDS CLEAR TO AUSCULTATION. LEFT FACIAL SWELLING/CELLULITIS. PAIN 5/10 TO FACE. RIGHT AC 20 GAUGE IV SL. PATIENT AMBULATES INDEPENDENTLY. ORIENTED PATIENT TO ROOM AND CALL LIGHT. BED LOW, WHEELS LOCKED, SIDE RAILS X2. CALL LIGHT IN REACH WILL CONTINUE TO MONITOR PATIENT.
[2019-02-26] MEDS ORDERED: SODIUM CHLORIDE 0.9% 250ML 250 ML ONE (10:25)
[2019-02-26] MEDS: VANCOMYCIN 1GM/NS 250 ML 250 ML IV SCH ×2 (10:37→20:40)
[2019-02-26] MEDS ORDERED: INFLUENZA VIRUS VAC SPLIT INJ 0.5 ML SYR IM SCH (10:55)
[2019-02-26] MEDS ORDERED: DEXTROSE 50% SYRINGE 50 ML IV PRN (11:45)
[2019-02-26] MEDS ORDERED: INSULIN LISPRO 100 UNIT/1 ML 3ML VIAL SQ NR (12:45)
[2019-02-26 15:12] LABS: BASOPHILS % 0.2 % (0.0-1.0); EOSINOPHILS # (AUTO) 0.3 (0.0-0.4); HEMATOCRIT 41.2 % (38.2-49.6); HEMOGLOBIN 14.4 g/dL (14.0-18.0); LYMPHOCYTES # (AUTO) 4.4 (1.0-3.2); LYMPHOCYTES % 25.7 % (18.0-39.1); MEAN CORPUSCULAR HEMOGLOBIN 31.6 pg (28-32); MEAN CORPUSCULAR VOLUME 90.5 fL (81-99); MONOCYTES # (AUTO) 2.1 (0.2-0.8); MONOCYTES % 12.4 % (4.4-11.3); NEUTROPHILS # (AUTO) 10.2 (2.1-6.9); NEUTROPHILS % 59.3 % (38.7-80.0); PLATELET COUNT 489 x10e3/uL (140-360); RED BLOOD COUNT 4.55 x10e6/uL (4.3-5.7); RED CELL DISTRIBUTION WIDTH 13.1 % (11.7-14.4)
[2019-02-26] MEDS ORDERED: HYDROCODONE/APAP 5MG-325MG TAB PO PRN (15:15)
--- NOTE | 2019-02-26 15:21 | NUR ---
PATIENT REFUSED BLOOD SUGAR CHECK.
[2019-02-26] MEDS: INSULIN LISPRO 100 UNIT/1 ML 3ML VIAL SQ SCH ×3 (15:25→20:27)
[2019-02-26 15:30] LABS: ANION GAP 12.8 mmol/L (8-16); BLOOD UREA NITROGEN 9 mg/dL (7-26); BUN/CREATININE RATIO 11 (6-25); CALCIUM 9.3 mg/dL (8.4-10.2); CARBON DIOXIDE 24 mmol/L (22-29); CHLORIDE 109 mmol/L (98-107); CREATININE, SERUM 0.84 mg/dL (0.72-1.25); EST GLOMERULAR FILTRATION RATE > 60 ML/MIN (60-); GLUCOSE 72 mg/dL (74-118); POTASSIUM 3.8 mmol/L (3.5-5.1); SODIUM 142 mmol/L (136-145)
[2019-02-26] MEDS: FAMOTIDINE 20 MG TAB PO SCH (16:42)
[2019-02-26] MEDS: DEPAKOTE DELAYED-RELEASE TAB 500 MG PO SCH (16:42)
[2019-02-26] MEDS: MORPHINE SULFATE INJ 4 MG/ML INJ 1ML IV PRN ×2 (16:42→20:49)
[2019-02-26] MEDS: ENOXAPARIN 30 MG/0.3 ML SYR SC SCH (17:00)
[2019-02-26] MEDS: KETOROLAC TROMETHAMINE 30 MG/ML VIAL IV SCH ×3 (17:20→23:32)
[2019-02-26] MEDS: NICOTINE 21 MG/EA PATCH TOP SCH (17:20)
--- NOTE | 2019-02-26 18:30 | Consultation ---
DATE OF CONSULTATION: REASON FOR CONSULTATION: Cellulitis of the face. HISTORY OF PRESENT ILLNESS: This patient who is a 38-year-old male who have history of drug abuse. The patient comes into the emergency room with redness and swelling of his face and this started about 2 days ago. PAST MEDICAL HISTORY: Drug abuse. PAST SURGICAL HISTORY: Denies. ALLERGIES: NKA. SOCIAL HISTORY: Positive for drug abuse, methamphetamine. LABORATORY DATA: Data reviewed. It is still pending. PHYSICAL EXAMINATION: GENERAL: Currently alert, oriented, does not seem in acute distress. VITALS SIGNS: Stable, currently afebrile. HEENT: Not icteric. NECK: Supple. CHEST: Clear. ABDOMEN: Soft. SKIN: The face has erythema. There is edema. There is no fluctuation. IMPRESSION: Cellulitis of the face in a patient with drug abuse. RECOMMENDATION: Agree with vancomycin. Agree with cefepime. Obtain blood cultures, HIV, hepatitis since he is at risk. Recheck CBC. Recheck Chem panel. We will follow. MD KIKA Henry/MARYCRUZ /[id number]
[2019-02-26] MEDS: CHLORPROMAZINE HCL 25 MG TAB PO SCH (20:49)
[2019-02-26] MEDS: SIMVASTATIN 20 MG TAB PO SCH (20:49)
--- NOTE | 2019-02-26 23:06 | History and Physical ---
CHIEF COMPLAINT: Left facial swelling. HISTORY OF PRESENT ILLNESS: This is a 38-year-old male, history of methamphetamine use, type 2 diabetes, recently was in [facility] just discharged from the [facility] and he reports that he went to a local rehab facility and that the beds were full and which he was told to leave, went home, took some more methamphetamine and then noticed that his face was swollen about 2-3 days ago and presented to an outside ER for further evaluation. The patient reports that his face was getting swollen over the last 2-3 days. No reports of any fever. He denies any dental abscess or any dental pain. The patient is very unpleasant individual at bedside, very rude and verbally abusive. A nurse was present throughout the entire conversation. The patient was seen and evaluated at bedside on the medical floor. He is currently doing well. His left face is very swollen with CT imaging consistent with a phlegmon and cellulitis. REVIEW OF SYSTEMS: Pertinent positive: Left facial swelling. Pertinent negative: Denies any chest pain, palpitation, nausea, vomiting, diarrhea, dysuria, hematuria, frequency, urgency, lightheadedness, dizziness, abdominal pain, headaches, shortness of breath, cough, congestion, fever, or any other complaints. The rest of 14-point review of systems are reviewed with the patient and are negative. ALLERGIES: OLANZAPINE. HOME MEDICATIONS: He takes Thorazine, divalproex, Pepcid, hydroxyzine, lisinopril, meloxicam, Robaxin, sertraline, and simvastatin. PAST MEDICAL HISTORY: History of multiple psychiatric disorders, type 2 diabetes, chronic pain syndrome, hypertension, and hyperlipidemia. PAST SURGICAL HISTORY: None. FAMILY HISTORY: Hypertension and diabetes. SOCIAL HISTORY: He does methamphetamine usage, of note two days ago was his last usage. Drinks occasionally. No smoking. He was recently incarcerated in [facility] for unknown period of time. PHYSICAL EXAMINATION: VITAL SIGNS: Temperature is 96.3, pulse 93, respiratory rate is 18, blood pressure 146/87, pulse ox is 100% on room air. LABORATORY DATA: Lab findings show CBC was pending. Chemistry was pending. Point of care glucose was 178. IMAGING STUDIES: Maxillofacial CT shows cellulitis, inflammatory phlegmon involving the left nasolabial fold with premaxillary soft tissue. Bilateral lymphadenopathy of submental, submandibular, and upper cervical chain lymph nodes. CT brain shows no acute intracranial abnormality. GENERAL: Not in acute distress. Alert and oriented x3. Cooperative on examination. HEENT: Head; normocephalic, atraumatic. Eyes; pupils are equal, round, and reactive to light bilaterally. Extraocular movements intact bilaterally. NECK: Supple. Good range of motion. Throat, no evidence of erythema or exudates in the posterior pharynx. Has poor dentition. FACE: Left-sided face is very swollen, tender to palpation, erythematic. No discharge present. CARDIOVASCULAR: Positive S1, S2. No murmurs, rubs, or gallops appreciated. ABDOMEN: Soft, nondistended, and nontender to palpation. Bowel sounds present. MUSCULOSKELETAL: Strength is 5/5 throughout. No evidence of any muscle defects on examination. No weakness appreciated. NEUROLOGIC: Cranial nerve II through XII grossly intact. No evidence of any neurological deficits on exam. SKIN: Intact. Warm to touch. Good cap refill. He has multiple tattoos. PSYCHIATRIC: Normal affect and mood. EXTREMITIES: No edema. Good range of motion throughout. PULMONARY: Clear to auscultation bilaterally. No wheezing, rales, or rhonchi. No crackles appreciated. IMPRESSION: 1. Left facial cellulitis. 2. Type 2 diabetes. 3. Hypertension. 4. Chronic pain syndrome. PLAN: At this time IV antibiotics initiated. We will get blood cultures x2. ID has been consulted as well. Resume same antihypertensive medications with p.r.n. hydralazine. Put on insulin sliding scale. Get hemoglobin A1c. Put on pain control. Lovenox for DVT prophylaxis. Encourage ambulation. Diabetic diet. Otherwise, the patient will likely be here several days, which I had discussed with the patient. He reports that if he gets accepted to a rehab facility, he will leave against medical advice. At this time, he is currently doing well with no issues. MD HERMAN Jensen/MARYCRUZ /[id number]
[2019-02-27] VITALS (8 sets, daily range): BP systolic 99–114; BP diastolic 51–79
[2019-02-27] MEDS: KETOROLAC TROMETHAMINE 30 MG/ML VIAL IV SCH ×3 (05:23→16:33)
[2019-02-27 07:29] LABS: BASOPHILS % 0.3 % (0.0-1.0); EOSINOPHILS # (AUTO) 0.2 (0.0-0.4); EOSINOPHILS % 2.4 % (0.0-6.0); HEMATOCRIT 37.1 % (38.2-49.6); HEMOGLOBIN 12.8 g/dL (14.0-18.0); LYMPHOCYTES # (AUTO) 3.2 (1.0-3.2); MEAN CORPUSCULAR HEMOGLOBIN 31.7 pg (28-32); MEAN CORPUSCULAR HGB CONC 34.5 g/dL (31-35); MEAN CORPUSCULAR VOLUME 91.8 fL (81-99); MONOCYTES # (AUTO) 0.9 (0.2-0.8); MONOCYTES % 8.8 % (4.4-11.3); NEUTROPHILS # (AUTO) 5.4 (2.1-6.9); NEUTROPHILS % 55.2 % (38.7-80.0); PLATELET COUNT 300 x10e3/uL (140-360); RED BLOOD COUNT 4.04 x10e6/uL (4.3-5.7)
[2019-02-27 07:57] LABS: ANION GAP 12.8 mmol/L (8-16); BLOOD UREA NITROGEN 12 mg/dL (7-26); BUN/CREATININE RATIO 13 (6-25); CALCIUM 8.7 mg/dL (8.4-10.2); CARBON DIOXIDE 23 mmol/L (22-29); CHLORIDE 107 mmol/L (98-107); CREATININE, SERUM 0.94 mg/dL (0.72-1.25); EST GLOMERULAR FILTRATION RATE > 60 ML/MIN (60-); GLUCOSE 100 mg/dL (74-118); POTASSIUM 3.8 mmol/L (3.5-5.1); SODIUM 139 mmol/L (136-145)
[2019-02-27] MEDS: SERTRALINE HCL 100 MG TAB PO SCH (08:54)
[2019-02-27] MEDS: DEPAKOTE DELAYED-RELEASE TAB 500 MG PO SCH ×2 (08:54→16:33)
[2019-02-27] MEDS: CEFEPIME 1GM/NS 0.9% 50 ML 50 ML IV SCH ×2 (08:54→20:38)
[2019-02-27] MEDS: HYDROXYZINE HCL 25 MG TAB PO SCH (08:54)
[2019-02-27] MEDS: PANTOPRAZOLE SOD 40 MG TABEC PO SCH (08:54)
[2019-02-27] MEDS: FAMOTIDINE 20 MG TAB PO SCH ×2 (08:54→16:33)
[2019-02-27] MEDS: NICOTINE 21 MG/EA PATCH TOP SCH (08:54)
[2019-02-27] MEDS: INSULIN LISPRO 100 UNIT/1 ML 3ML VIAL SQ SCH ×4 (08:56→20:39)
[2019-02-27] MEDS ORDERED: LISINOPRIL 10 MG TAB PO SCH (09:00)
[2019-02-27] MEDS: VANCOMYCIN 1GM/NS 250 ML 250 ML IV SCH ×2 (09:25→21:10)
[2019-02-27 09:37] LABS: HIV 1&2 AB SCREEN NON-REACTIVE (NONREACTIVE)
[2019-02-27] MEDS ORDERED: INSULIN LISPRO 100 UNIT/1 ML 3ML VIAL SQ ONE (11:30)
--- NOTE | 2019-02-27 14:13 | NUR ---
progress note [id number]
--- NOTE | 2019-02-27 14:55 | Progress Note ---
DATE: 02/27/2019 SUBJECTIVE: The patient's facial cellulitis seems to have improved today. His pain is better controlled. No overnight events. LABORATORY FINDINGS: Show white count 9.7, hemoglobin 12.8, hematocrit is 37.1, platelets of 300. Chemistry; sodium 139, potassium 3.8, chloride 107, bicarb 23, anion gap of 12, BUN is 12, creatinine is 0.94, glucose is 100, calcium is 8.7. Hepatitis panel is pending. HIV nonreactive. PHYSICAL EXAMINATION: VITAL SIGNS: Temperature is 96, pulse is 70, respiratory rate is 22, blood pressure is 110/56, and pulse ox 99% on room air. GENERAL: Not in acute distress. Alert and oriented x3. Cooperative on examination. HEENT: Head; normocephalic, atraumatic. Eyes; pupils are equal, round, and reactive to light bilaterally. Extraocular movements intact bilaterally. Throat; no evidence of erythema or exudates in the posterior pharynx. Has poor dentition. The patient's left facial swelling seems to have improved somewhat, but still very swollen, nontender to palpation. It is not arrhythmic. NECK: Supple. Good range of motion throughout. PULMONARY: Clear to auscultation bilaterally. No wheezing, no rales, no rhonchi, no crackles appreciated. CARDIOVASCULAR: Positive S1 and S2. No murmurs, rubs, or gallops appreciated. ABDOMEN: Soft, nondistended, and nontender to palpation. Bowel sounds present. MUSCULOSKELETAL: Strength is 5/5 throughout. No evidence of any muscle deficits on examination. No weakness appreciated. NEUROLOGIC: Cranial nerves II through XII grossly intact. No evidence of any neurological deficits on exam. SKIN: Intact. Warm to touch. Good cap refill. PSYCHIATRIC: Normal affect and mood. EXTREMITIES: No edema. Good range of motion throughout. IMPRESSION: 1. Left facial cellulitis. 2. Type 2 diabetes. 3. Hypertension. 4. Chronic pain syndrome. PLAN: At this time, continue with IV antibiotics aggressively. ID is following very closely. Resume same antihypertensive medications at home. The patient refuses insulin sliding scale. Continue with Lovenox for DVT prophylaxis. Pain control. Encourage ambulation. Get morning labs. Continue with aggressive IV antibiotic therapy. If no improvement, the patient will likely need a CT of his face again repeated to evaluate for any kind of abscess. At this time, continue same plan of care. Continue with Toradol scheduled for pain control and anti-inflammatory properties. MD HERMAN Jensen/MARYCRUZ /[id number]
[2019-02-27] MEDS: ENOXAPARIN 30 MG/0.3 ML SYR SC SCH (16:33)
--- NOTE | 2019-02-27 19:12 | NUR ---
Report given to oncoming nurse of patient's status. Eating dinner. No s/s of acute distress noted. Side rails upx2, call light within reach, family at bedside.
[2019-02-27] MEDS: CHLORPROMAZINE HCL 25 MG TAB PO SCH (20:38)
[2019-02-27] MEDS: SIMVASTATIN 20 MG TAB PO SCH (20:38)
[2019-02-27] MEDS: MORPHINE SULFATE INJ 4 MG/ML INJ 1ML IV PRN (20:42)
[2019-02-28] VITALS (7 sets, daily range): BP systolic 95–124; BP diastolic 45–78
[2019-02-28] MEDS: KETOROLAC TROMETHAMINE 30 MG/ML VIAL IV SCH ×4 (00:39→18:38)
[2019-02-28] MEDS: MORPHINE SULFATE INJ 4 MG/ML INJ 1ML IV PRN ×2 (02:33→20:11)
[2019-02-28 05:21] LABS: BASOPHILS % 0.2 % (0.0-1.0); EOSINOPHILS # (AUTO) 0.2 (0.0-0.4); EOSINOPHILS % 2.2 % (0.0-6.0); HEMATOCRIT 37.5 % (38.2-49.6); HEMOGLOBIN 12.4 g/dL (14.0-18.0); LYMPHOCYTES # (AUTO) 2.5 (1.0-3.2); LYMPHOCYTES % 29.4 % (18.0-39.1); MEAN CORPUSCULAR HEMOGLOBIN 30.7 pg (28-32); MEAN CORPUSCULAR HGB CONC 33.1 g/dL (31-35); MEAN CORPUSCULAR VOLUME 92.8 fL (81-99); MONOCYTES # (AUTO) 0.7 (0.2-0.8); MONOCYTES % 7.9 % (4.4-11.3); NEUTROPHILS # (AUTO) 5.2 (2.1-6.9); PLATELET COUNT 305 x10e3/uL (140-360); RED BLOOD COUNT 4.04 x10e6/uL (4.3-5.7); RED CELL DISTRIBUTION WIDTH 12.9 % (11.7-14.4)
[2019-02-28 05:42] LABS: ANION GAP 11.3 mmol/L (8-16); BLOOD UREA NITROGEN 17 mg/dL (7-26); BUN/CREATININE RATIO 22 (6-25); CALCIUM 8.5 mg/dL (8.4-10.2); CARBON DIOXIDE 25 mmol/L (22-29); CHLORIDE 106 mmol/L (98-107); CREATININE, SERUM 0.77 mg/dL (0.72-1.25); EST GLOMERULAR FILTRATION RATE > 60 ML/MIN (60-); GLUCOSE 168 mg/dL (74-118); POTASSIUM 3.3 mmol/L (3.5-5.1); SODIUM 139 mmol/L (136-145)
[2019-02-28] MEDS: INSULIN LISPRO 100 UNIT/1 ML 3ML VIAL SQ SCH ×4 (07:30→21:00)
[2019-02-28] MEDS: FAMOTIDINE 20 MG TAB PO SCH ×3 (07:30→17:00)
[2019-02-28] MEDS: NICOTINE 21 MG/EA PATCH TOP SCH (08:50)
[2019-02-28] MEDS: HYDROXYZINE HCL 25 MG TAB PO SCH ×2 (08:51→09:00)
[2019-02-28] MEDS: DEPAKOTE DELAYED-RELEASE TAB 500 MG PO SCH ×2 (08:51→09:00)
[2019-02-28] MEDS: PANTOPRAZOLE SOD 40 MG TABEC PO SCH (08:51)
[2019-02-28] MEDS: CEFEPIME 1GM/NS 0.9% 50 ML 50 ML IV SCH ×2 (08:51→19:44)
[2019-02-28] MEDS: SERTRALINE HCL 100 MG TAB PO SCH ×2 (08:51→09:00)
[2019-02-28] MEDS: VANCOMYCIN 1GM/NS 250 ML 250 ML IV SCH ×2 (09:45→20:45)
--- NOTE | 2019-02-28 12:30 | NUR ---
Dr. Shultz is here making rounds. I notified him that AM blood pressure medicine Lisinopril was held due to low BP 106/51 and that patient continues to be lethargic/drowsy. Patient would not stay awake to take AM medications. New orders received.
--- NOTE | 2019-02-28 12:34 | Progress Note ---
DATE: SUBJECTIVE: Mr. Aguirre is lying in bed comfortably. His face seems to be getting better. He still have some redness and swelling. The edema has subsided. REVIEW OF SYSTEMS: HEENT: Negative. PULMONARY: Negative. PHYSICAL EXAMINATION: GENERAL: He is currently alert and oriented. Does not seem to be in acute distress. VITAL SIGNS: Stable, currently afebrile. HEENT: Normocephalic. He does have some redness and swelling infecting his left side of the face. NECK: Supple. No JVD. No lymphadenopathy. No thyromegaly. CHEST: Clear bilateral. COR: S1 and S2. No S3, S4, or murmur. ABDOMEN: Soft. IMPRESSION: 1. Left face cellulitis. 2. Diabetes mellitus type 2 with neuropathy. 3. Hypertension. 4. Chronic pain syndrome. 5. Drug abuse. Continue with IV antibiotic as ordered. Continue with local care. Clinically, he is improving. We will follow with you. Further recommendations to follow. MD KIKA Henry/MARYCRUZ /[id number]
[2019-02-28] MEDS ORDERED: SODIUM CHLORIDE 0.9% 500ML 500 ML IV ONE (12:45)
[2019-02-28] MEDS ORDERED: POTASSIUM CHLORIDE 20 MEQ TAB CR PO NR (13:30)
--- NOTE | 2019-02-28 15:14 | Progress Note ---
DATE: 02/28/2019 Medicine Progress Note SUBJECTIVE: The patient is very sleepy today on examination. He reports that he does not take Thorazine, which could be the cause of him being very sleepy. We will go ahead and discontinue that. The patient is very poor historian. He did not provide us all of the documentation of his home medications. OBJECTIVE: VITAL SIGNS: He is afebrile. Temperature 97.5, pulse 83, respiratory rate is 20, blood pressure was low at 95/45. His pulse ox is 98% on room air. GENERAL: Not in acute distress. Alert and oriented x3. Cooperative on examination. HEENT: Head; normocephalic, atraumatic. Eyes; pupils are equal, round, and reactive to light bilaterally. Extraocular movements intact bilaterally. Throat; no evidence of erythema or exudates in the posterior pharynx. Has poor dentition. Face; left facial sign shows evidence of swelling, but much improved. NECK: Supple. Good range of motion. PULMONARY: Clear to auscultation bilaterally. No wheezing, no rales, no rhonchi, no crackles appreciated. CARDIOVASCULAR: Positive S1 and S2. No murmurs, rubs, or gallops appreciated. ABDOMEN: Soft, nondistended, and nontender to palpation. Bowel sounds were present. MUSCULOSKELETAL: Strength is 5/5 throughout. No evidence of any muscle deficits on examination. No weakness appreciated. NEUROLOGIC: Cranial nerves II through XII grossly intact. No evidence of any neurological deficits on exam. SKIN: Intact. Warm to touch. Good cap refill. PSYCHIATRIC: Normal affect and mood. EXTREMITIES: No edema. Good range of motion throughout. LABORATORY DATA: Labs reviewed. CBC stable. White count 8.6. Chemistry review shows potassium is 3.3. Rest of electrolytes are stable. IMAGING STUDIES: None IMPRESSION: 1. Left facial cellulitis, improving. 2. Type 2 diabetes. 3. Hypertension. 4. Chronic pain syndrome. PLAN: At this time, continue with IV antibiotics per ID recommendations. Stop Thorazine. Review his home medications and see if they are correct, seems like he did not provide us an appropriate list for his medications. Stop his lisinopril for now. Give normal saline bolus 500 mL x1. Replace potassium. He is very sleepy on examination, but arousable. Seems like the Thorazine makes him very sleepy, we will go ahead and discontinue it. Continue with Toradol for pain control and its anti-inflammatory properties. We will see how he does overnight. If he does well, maybe by tomorrow, we can discharge him to home otherwise. MD HERMAN Jensen/MODJenni /[id number]
--- NOTE | 2019-02-28 16:33 | NUR ---
Notified Dr. Shultz of patient's blood pressure 124/59 after receiving bolus. I also notified Dr. Shultz that I attempted to update and correct the patient's home medication list. The patient stated he "takes other stuff" but "I cant remember it right now, I will have to tell you later". The patient also continues to be very drowsy. New orders received
[2019-02-28] MEDS: ENOXAPARIN 30 MG/0.3 ML SYR SC SCH (17:00)
--- NOTE | 2019-02-28 17:00 | NUR ---
Patient has refused insulin. States he will take the Lovenox injection "if I leave him alone after that". Patient continues to be drowsy. Denies needing anything. Call light in reach
--- NOTE | 2019-02-28 17:46 | Progress Note ---
DATE: SUBJECTIVE: Mr. Sascha Aguirre is doing better. No new complaint. The face is doing better. The redness and swelling have subsided. LABORATORY DATA: Reviewed. White count down to 8.6. Sodium 139, potassium 3.9. REVIEW OF SYSTEMS: HEENT: Negative. PULMONARY: Negative. CARDIAC: Negative. PHYSICAL EXAMINATION: GENERAL: He is currently alert, oriented, does not seem to be in acute distress. VITAL SIGNS: Stable. Currently afebrile. HEENT: He is not icteric. The redness has subsided. There is still some lesions on the face and on skin. NECK: Supple. No JVD. No lymphadenopathy. No thyromegaly. CHEST: Clear bilateral. COR: S1 and S2. No S3, S4, or murmur. ABDOMEN: Soft. IMPRESSION: 1. Cellulitis of the face, doing better. 2. Drug abuse. 3. Anxiety. 4. From Infectious Disease point of view, can discharge home tomorrow with doxycycline 100 mg p.o. b.i.d. for 7 days. Follow up as an outpatient. MD KIKA Henry/MARYCRUZ /[id number]
--- NOTE | 2019-02-28 18:41 | NUR ---
Attending change to Dr. Faye due to patient being [facility]
[2019-02-28] MEDS: SIMVASTATIN 20 MG TAB PO SCH (19:45)
--- NOTE | 2019-02-28 20:04 | NUR ---
Call to Dr Faye, reprted patient c/o pain 10/23. Toradol 30 mg given IV at 1830. Patient continues to complain of pain. Medication was put on hold today for patient being lethargic and not responding appropriately. Patient currently A&O x3 and reporting pain is not tolerable. May resume Morphine 4 mg IV Q 4 hrs PRN pain as long as patient remains alert and v/s stable.
[2019-02-28] MEDS ORDERED: SODIUM CHLORIDE 0.9% 500ML 500 ML ONE (20:24)
[2019-03-01] VITALS: BP 122/71
[2019-03-01] MEDS: KETOROLAC TROMETHAMINE 30 MG/ML VIAL IV SCH ×2 (01:30→06:26)
[2019-03-01 04:00] VITALS: BP 133/63
[2019-03-01] MEDS: INSULIN LISPRO 100 UNIT/1 ML 3ML VIAL SQ SCH (07:30)
[2019-03-01] MEDS: CEFEPIME 1GM/NS 0.9% 50 ML 50 ML IV SCH (08:25)
[2019-03-01] MEDS: NICOTINE 21 MG/EA PATCH TOP SCH (08:25)
[2019-03-01] MEDS: PANTOPRAZOLE SOD 40 MG TABEC PO SCH (08:25)
[2019-03-01] MEDS: FAMOTIDINE 20 MG TAB PO SCH (08:25)
[2019-03-01] MEDS: SERTRALINE HCL 100 MG TAB PO SCH (08:25)
[2019-03-01] MEDS: MORPHINE SULFATE INJ 4 MG/ML INJ 1ML IV PRN (08:30)
[2019-03-01 08:55] VITALS: BP 132/67
[2019-03-01 09:05] VITALS: BP 132/67
[2019-03-01] MEDS: VANCOMYCIN 1GM/NS 250 ML 250 ML IV SCH (09:35)
[2019-03-01] MEDS ORDERED: IBUPROFEN400 MG PO (11:51)
[2019-03-01 11:59] VITALS: BP 137/64
--- NOTE | 2019-03-01 12:45 | NUR ---
Discharge instructions and prescriptions were given to the patient. He verbalized understanding. IV's were removed from left and right AC.
--- NOTE | 2019-03-01 12:55 | NUR ---
Patient left the floor without notifying RN. clerical secretary said she saw patient get on the elevator with belongings.
--- NOTE | 2019-03-01 15:43 | Discharge Summary ---
FINAL DISCHARGE DIAGNOSES: 1. Left facial cellulitis. 2. Type 2 diabetes. 3. Hypertension. 4. Chronic pain syndrome. CONSULTANTS: Dr. Prajapati with Infectious Disease. PROCEDURES: None. HISTORY: Per HPI. HOSPITAL COURSE: This is a 38-year-old male with past medical history of diabetes, hypertension, and chronic pain syndrome, presented to the ER with complaints of left facial swelling and redness. He also reported IV drug abuse with heroin. Infectious disease doctor was consulted. He was started on vancomycin. Upon arrival, WBC was 17.9. He remained afebrile. He was continued on cefepime and vancomycin for broad coverage. CT of the face showed cellulitis and inflammatory phlegmon involving the left nasolabial folds and premaxillary soft tissue. No discrete fluid collection or abscess is identified. Also noted bilateral lymphadenopathy of submental, submandibular, and upper cervical chain lymph nodes, likely reactive. CT brain with no changes. Today his white counts have been normal, has been cleared from ID standpoint to discharge home on doxycycline p.o. b.i.d. for seven more days. PHYSICAL EXAMINATION: VITAL SIGNS: Temperature 96.1, pulse is 89, respirations 20, blood pressure 132/67, pulse ox 100% on room air. GENERAL: No acute distress. HEENT: Normocephalic, atraumatic. NECK: Supple. LUNGS: Clear to auscultation. CARDIOVASCULAR: Regular rate and rhythm. ABDOMEN: Soft and nontender. MUSCULOSKELETAL: Moves all extremities. NEUROLOGY: Alert, awake, and oriented x3. SKIN: Intact. Facial swelling and rash and lacerations noted on the left side of face. PSYCH: Normal affect. EXTREMITIES: Moves all extremities. No edema. CONDITION AT DISCHARGE: Improved. DISCHARGE MEDICATIONS: Please see med reconciliation list. FOLLOWUP: Follow up with PCP and ID in 1 to 2 weeks. TIME SPENT: Total time of discharge is 32 minutes. Dictated by MEGHAN Ho Christina Faye MD MY/MODL /[id number]
--- OUTSIDE RECORDS SUMMARY | 2019-03-04 11:57 | XMS REPORT ---
Author Author Admin, [place] Organization Unknown Address Unknown Phone Unavailable Problems No Known Problems ENCOUNTERS Date Type Provider Location Encounter Diagnosis - Ambulatory Encounter Anaya Spear [facility] UNK - Ambulatory Encounter Bebeto C Michaelmebernardoen [facility]K - Ambulatory Encounter Bebeto C [facility] - Ambulatory Encounter Bebeto C [facility] - Ambulatory Encounter Bebeto C V[facility] Mo[facility] UNK - Ambulatory Encounter Erendira Hutchinson [facility] UNK - Ambulatory Encounter Luis Arellano [facility] UNK VITAL SIGNS No Information Available Allergies No Known Allergy Information REASON FOR REFERRAL No Information Available RESULTS No Information Available HISTORY OF IMMUNIZATIONS No Information Available Medications No Known Medication Information SOCIAL HISTORY No Information Available FUNCTIONAL STATUS No Information Available MENTAL STATUS No Information Available MEDICAL EQUIPMENT No Information Available FAMILY HISTORY No Information Available INSURANCE PROVIDERS Payer name Policy type / Coverage type Covered democrat ID Sliding Fee - Cat 2 Commercial insurance company [id number] ADVANCE DIRECTIVES No Information Available TREATMENT PLAN No Information Available HISTORY OF PROCEDURES No Information Available GOALS No Information Available HEALTH CONCERNS No Information Available
== END 2019-03-01 12:55 | disposition home or self-care (01) | DRG 603 ==
LOC: FSED 05:44 → ERHOLD 08:37 → MED/SURG2 09:06
PROVIDERS: ADMIT Internal Medicine; ATTEND Internal Medicine
DX: L03.211 Cellulitis of face (principal); E87.6 Hypokalemia; E11.65 Type 2 diabetes mellitus with hyperglycemia; E11.40 Type 2 diabetes mellitus with diabetic neuropathy, unspecified; I10 Essential (primary) hypertension; E78.5 Hyperlipidemia, unspecified; G89.4 Chronic pain syndrome; F41.9 Anxiety disorder, unspecified; F15.10 Other stimulant abuse, uncomplicated; R59.0 Localized enlarged lymph nodes
CPT/HCPCS: 36415; 70450; 70486; 80048; 80202; 82948; 85025; 87390; 99284; G0433; G0435; J0692; J1650; J1885; J2270; J2405; J3370; J3410; J7040; J7050

== ENCOUNTER 2019-04-20 20:14 | Emergency (ER) | payer MEDICARE ==
[~2019-04-20] VITALS: Ht 188 cm; Wt 87.5 kg
[~2019-04-20 20:14] MED LIST changes: +IBUPROFEN400 MG PO
== END 2019-04-20 20:55 | disposition home or self-care (01) ==
LOC: FSED 20:14
DX: L03.811 Cellulitis of head [any part, except face] (principal); F17.210 Nicotine dependence, cigarettes, uncomplicated
CPT/HCPCS: 99282

== ENCOUNTER 2019-05-10 19:09 | Emergency (ER) | payer MEDICARE ==
[~2019-05-10] VITALS: Ht 188 cm; Wt 89.4 kg
[2019-05-10] MEDS ORDERED: DOXYCYCLINE HY100 MG PO (19:41)
== END 2019-05-10 20:05 | disposition home or self-care (01) ==
LOC: FSED 19:09
DX: L03.811 Cellulitis of head [any part, except face] (principal); L03.221 Cellulitis of neck
CPT/HCPCS: 36415; 82948; 99282

== ENCOUNTER 2020-06-24 04:57 | Emergency (ER) | payer MEDICARE ==
[~2020-06-24] VITALS: Ht 188 cm; Wt 92.5 kg
[~2020-06-24 04:57] MED LIST changes: +DOXYCYCLINE HY100 MG PO
[2020-06-24] MEDS ORDERED: CEPHALEXIN500 MG PO (05:19)
[2020-06-24] MEDS ORDERED: BACTRIM DS TAB1 EACH PO (05:19)
[2020-06-24 05:25] VITALS: BP 163/97
== END 2020-06-24 05:25 | disposition home or self-care (01) ==
LOC: FSED 05:12
DX: L02.01 Cutaneous abscess of face (principal); I10 Essential (primary) hypertension; E11.9 Type 2 diabetes mellitus without complications; G40.909 Epilepsy, unspecified, not intractable, without status epilepticus
CPT/HCPCS: 99282